=== PATIENT | female | born 1950 | race Caucasian/White ===

== ENCOUNTER → 2017-07-11 | Outpatient (REF) | payer OTHER, SELFPAY | LOC: LAB 17:55 | PROVIDERS: PCP Internal Medicine; Visit Provider Otolaryngology Facial Plastic Surgery | DX: J32.8 Other chronic sinusitis (principal); J30.89 Other allergic rhinitis; J34.0 Abscess, furuncle and carbuncle of nose | CPT/HCPCS: 87070 ==

== ENCOUNTER → 2017-09-16 08:42 | Outpatient (CLI) | payer MEDICARE, OTHER, SELFPAY ==
[2017-09-16 09:46] LABS: Alanine Aminotransferase 42 IU/L (9-52); Albumin 4.3 g/dL (3.5-5.0); Albumin Globulin Ratio 1.6 (1.0-2.8); Alkaline Phosphatase 97 U/L (38-126); Aspartate Aminotransferase 25 IU/L (14-36); Bilirubin Total 0.4 mg/dL (0.2-1.3); Bilirubin Unconjugated 0.1 mg/dL (0.0-1.1); Globulin 2.7 g/dL (1.7-4.1); HEMOLYSIS < 15 (0-50)
== END ==
PROVIDERS: PCP Internal Medicine; Visit Provider Nurse Practitioner Family
DX: R94.5 Abnormal results of liver function studies (principal)
CPT/HCPCS: 36415; 80076

== ENCOUNTER → 2017-11-12 07:51 | Outpatient (CLI) | payer MEDICARE, OTHER, SELFPAY ==
[2017-11-12 09:35] LABS: Alanine Aminotransferase 40 IU/L (9-52); Albumin 4.3 g/dL (3.5-5.0); Albumin Globulin Ratio 1.7 (1.0-2.8); Alkaline Phosphatase 101 U/L (38-126); Aspartate Aminotransferase 25 IU/L (14-36); Bilirubin Total 0.5 mg/dL (0.2-1.3); Bilirubin Unconjugated 0.2 mg/dL (0.0-1.1); Globulin 2.5 g/dL (1.7-4.1); HEMOLYSIS < 15 (0-50); Total Protein 6.8 g/dL (6.3-8.2)
== END ==
PROVIDERS: PCP Internal Medicine; Visit Provider Nurse Practitioner Family
DX: R94.5 Abnormal results of liver function studies (principal)
CPT/HCPCS: 36415; 80076

== ENCOUNTER 2017-11-18 20:17 | Emergency (ER) | payer MEDICARE, OTHER, SELFPAY ==
[2017-11-18 20:27] VITALS: BP 191/100; PULSE 94; RESP 18; TEMP 36.6; O2SAT 97; BMI 28.2
--- NOTE | 2017-11-18 20:28 | ED.GENADULT ---
HPI - General Adult General Chief complaint: Hypertension Stated complaint: Heart Palpatations Time Seen by Provider: 11/18/17 20:20 Source: patient and EMS Mode of arrival: EMS Limitations: no limitations History of Present Illness HPI narrative: Patient states she developed a headache and felt lightheaded about 30 min after taking her cardia. She states she was just started on this medication 4 days ago, after her doctor felt her beta-blockers should be discontinued. Patient states that she has felt shaky ever since his symptoms developed about an hours ago. She denies chest pain or nausea. Patient states that she is feeling a little bit short of breath. Her states that she has been feeling short of breath for the last 3 weeks, even with light exertion, which prompted the visit with her doctor. It was at this time that it was determined her medication should be changed. Patient also has a an echocardiogram scheduled in 2 days. Onset (ago): hour(s) ( One) Location: upper extremity ( upper extremities are shaking.) Radiation: non-radiation Severity: moderate Relieving factors: none Exacerbating factors: medication (Patient feels that her Cardia brought on the symptoms.) Associated symptoms: denies other symptoms Related Data Home Medications Medication Instructions Recorded Confirmed linaclotide [Linzess] 145 mcg PO QAM #0 12/30/16 pantoprazole [Protonix] 40 mg PO BID #0 12/30/16 esomeprazole magnesium [Nexium] 40 mg PO QDAY #0 01/09/17 Previous Rx's Medication Instructions Recorded enoxaparin [Lovenox] 40 mg SQ QDAY 9 Days #0 ea 01/10/17 Review of Systems Review of Systems All systems reviewed & are unremarkable except as noted in HPI and below Constitutional Denies chills, Denies fever(s), Denies lethargy and Denies weakness Comments: Lightheadedness Eyes Denies change in vision, Denies eye discharge, Denies irritation and Denies loss of vision ENT Ears, Nose, Mouth, and Throat: Denies change in voice, Denies neck pain and Denies sore throat Cardiovascular Denies chest pain, Denies irregular heart rhythm, Reports lightheadedness, Denies palpitations, Denies dyspnea, Denies dyspnea on exertion and Denies orthopnea Respiratory Denies cough, Denies dyspnea, Denies dyspnea on exertion and Denies wheezing Gastrointestinal Gastrointestinal: Denies abdominal pain, Denies change in bowel habits, Denies diarrhea, Denies nausea and Denies vomiting Genitourinary Denies hematuria, Denies flank pain, Denies urinary incontinence and Denies urinary urgency Musculoskeletal Denies neck pain Integumentary/Breasts Denies pruritus, Denies erythema, Denies rash and Denies wounds Neurologic Denies confusion, Denies loss of vision and Denies weakness Psychiatric Denies anxiety, Denies confusion, Denies depression, Denies homicidal ideation and Denies suicidal ideation Endocrine Denies palpitations Hematologic/Lymphatic Denies easy bruising Allergic/Immunologic Denies wheezing PFSH Medical History Adverse drug effect (Acute) Hypertension (Acute) Right leg swelling (Acute) Elevated LFTs (Acute) Surgical History S/P total hip arthroplasty (Acute) Social History Smoking Status: Never smoker Exam Initial Vital Signs Initial Vital Signs: Vital Signs Temperature 97.8 F 11/18/17 20:27 Pulse Rate 94 H 11/18/17 20:27 Respiratory Rate 18 11/18/17 20:27 Blood Pressure 191/100 H 11/18/17 20:27 Pulse Oximetry 97 11/18/17 20:27 Const General: cooperative and well developed Nutritional Appearance: well nourished Orientation: alert, awake, oriented x3 and not confused Other: Patient appears moderately anxious. HENOH Head: normocephalic and atraumatic Nose: external nose normal and No nasal discharge Face and sinus: face symmetric and No dry mucous membranes Mouth: oral mucosae normal and moist mucous membranes Eyes General: appearance normal, both eyes and all related structures Eyelids: eyelids normal Conjunctivae: conjunctivae normal Sclera: sclerae normal Pupils: PERRL EOM: EOM intact bilaterally Neck Neck: normal visual inspection, trachea midline, No lymphadenopathy, No midline deformity and No JVD Lymphatic: No lymphedema Chest Chest: normal inspection of the chest Resp Effort & Inspection: normal respiratory effort, able to speak in complete sentences, no respiratory distress and no use of accessory muscles Auscultation: clear to auscultation bilaterally, no rales, no rhonchi and no wheezes Cardio Rate: regular rate Rhythm: regular rhythm Heart Sounds: no click, no gallops, no murmurs and no rubs Pulses: normal peripheral pulses GI Inspection: non-distended Palpation: soft, no hepatosplenomegaly, No guarding, No pulsatile mass and No tender Auscultation: normal bowel sounds Back/Spine/Pelvis Back: No CVA tenderness Cervical Spine: cervical ROM normal and No pain with cervical ROM Thoracic/Lumbar Spine: thoracic and lumbar spine normal to inspection Skin General: no rashes or lesions noted, No jaundice and No petechiae Neuro General: alert, oriented x3, gait normal and no focal motor deficits Speech: speech normal Extrem General: full ROM, no clubbing, cyanosis or edema, no pedal edema and no calf tenderness Psych Appearance: well kempt Mental Status: mental status grossly normal Affect: anxious affect Attitude: cooperative Thought Content: normal and suicidality Judgment: judgment good Course Hospital Course: Patient was evaluated with labs and EKG, which were unremarkable. She was treated symptomatically with Ativan, after which she was found to be feeling much better I did discuss with the patient that she needs to see her primary care physician to discuss whether cardia is a good option for her, given the symptoms she has had when she takes it. Patient states she plans to see her primary care physician. 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 % (Auto) 5.9 (3-14) % Eos % (Auto) 4.5 H (2-4) % Baso % (Auto) 0.4 (0-2) % Neut # (Auto) 5200 (5810-5567) /uL Sodium 139 (137-145) mmol/L Potassium 3.6 (3.4-5.1) mmol/L Chloride 98 (98-107) mmol/L Carbon Dioxide 29 (22-32) mmol/L BUN 13 (7-17) mg/dL Creatinine 0.80 (0.52-1.04) mg/dL Estimated GFR > 60.0 (>60) mL/min BUN/Creatinine Ratio 16.3 (6-22) Glucose 108 (80-110) mg/dL Calcium 9.6 (8.4-10.2) mg/dL Total Bilirubin 0.3 (0.2-1.3) mg/dL AST 24 (14-36) IU/L ALT 32 (9-52) IU/L Alkaline Phosphatase 110 (38-126) U/L Total Creatine Kinase 70 (30-135) U/L Troponin I < 0.012 (0.01-0.034) ng/mL B-Natriuretic Peptide < 100.0 (<100) Total Protein 7.3 (6.3-8.2) g/dL Albumin 4.4 (3.5-5.0) g/dL Globulin 2.9 (1.7-4.1) g/dL Albumin/Globulin Ratio 1.5 (1.0-2.8) Discharge Plan Departure Patient Disposition: Home Clinical Impression: Adverse drug effect Discharge Date/Time: 11/18/17 21:57 Interventions: ED Discharge Assessment Last Done: 11/18/17 21:57 Instructions: DI for High Blood Pressure, DI for Adverse Drug Reaction -- Other Activity Restrictions/Additional Instructions: Your labs look good, as does your EKG. It is important that you see your doctor soon as possible to discuss a different blood pressure medication. Prescriptions: No Action pantoprazole [Protonix] 40 MG tablet,delayed release (DR/EC) 40 mg PO BID Qty: 0 RF: 0 linaclotide [Linzess] 145 MCG capsule 145 mcg PO QAM Qty: 0 RF: 0 esomeprazole magnesium [Nexium] 40 MG capsule,delayed release(DR/EC) 40 mg PO QDAY Qty: 0 RF: 0 enoxaparin [Lovenox] 40 MG/0.4 ML syringe 40 mg SQ QDAY 9 Days Qty: 0 RF: 0 Referrals: Marshall Jurado MD [Primary Care Provider] - ( Please call 1st thing tomorrow and schedule follow-up appointment.)
[2017-11-18 20:30] VITALS: BP 191/100; PULSE 78; RESP 19; O2SAT 100
--- NOTE | 2017-11-18 20:34 | DI.RAD.S_ITS ---
PROCEDURE: XR CHEST 1V INDICATIONS: dyspnea TECHNIQUE: One view of the chest was acquired. COMPARISON: [facility], , CHEST 1 VIEW, 08/29/2014, 13:47. FINDINGS: Surgical changes and devices: None. Lungs and pleura: No pleural effusions or pneumothorax. Lungs are clear. Mediastinum: Mediastinal contours appear normal. Heart size is normal. Bones and chest wall: No suspicious bony lesions. Overlying soft tissues appear unremarkable. IMPRESSION: No acute cardiopulmonary disease. Dictated by: Tisha August M.D. on 11/18/2017 at 21:29 Approved by: Tisha August M.D. on 11/18/2017 at 21:29
[2017-11-18 20:41] LABS: Add Manual Diff / Slide Review NO; Basophils Percent Auto 0.4 % (0-2); Eosinophils Percent Auto 4.5 % (2-4); Hematocrit 39.3 % (36-46); Lymphocytes Percent Auto 35.8 % (25-40); Mean Corpuscular Hemoglobin 29.4 PG (26-34); Monocytes Percent Auto 5.9 % (3-14); Neutrophils Absolute Auto 5200 /uL (3000-5900); Neutrophils Percent Auto 53.4 % (50-75); Platelet Count 348 X10^3/uL (150-400); Red Blood Cell Count 4.42 X10^6/uL (4.0-5.2); Red Cell Distribution Width 13.8 % (11.6-14.8); White Blood Cell Count 9.7 X10^3/uL (4.5-11.0)
[2017-11-18 20:47] VITALS: BP 191/100; PULSE 78; RESP 19; TEMP 36.6; O2SAT 100; BMI 28.2
[2017-11-18 20:56] LABS: Alanine Aminotransferase 32 IU/L (9-52); Albumin 4.4 g/dL (3.5-5.0); Albumin Globulin Ratio 1.5 (1.0-2.8); Alkaline Phosphatase 110 U/L (38-126); Aspartate Aminotransferase 24 IU/L (14-36); BUN Creatinine Ratio 16.3 (6-22); Bilirubin Total 0.3 mg/dL (0.2-1.3); Blood Urea Nitrogen 13 mg/dL (7-17); Calcium 9.6 mg/dL (8.4-10.2); Carbon Dioxide 29 mmol/L (22-32); Chloride 98 mmol/L (98-107); Creatine Kinase 70 U/L (30-135); Estimated Glomerular Filt Rate > 60.0 mL/min (>60); Globulin 2.9 g/dL (1.7-4.1); Glucose 108 mg/dL (80-110); HEMOLYSIS < 15 (0-50); Potassium 3.6 mmol/L (3.4-5.1); Sodium 139 mmol/L (137-145); Total Protein 7.3 g/dL (6.3-8.2)
[2017-11-18 21:07] LABS: B Type Natriuretic Peptide < 100.0 (<100)
[2017-11-18 21:08] LABS: Troponin I < 0.012 ng/mL (0.01-0.034)
[2017-11-18 21:20] VITALS: BP 150/66; PULSE 83; RESP 11; O2SAT 96
[2017-11-18] MEDS: LORazepam 2 MG/ML SYRINGE 1 MG IV (21:33)
== END 2017-11-18 21:57 | disposition home or self-care (01) ==
PROVIDERS: Emergency Provider Emergency Medicine; PCP Internal Medicine
DX: R00.2 Palpitations (principal); T46.1X5A Adverse effect of calcium-channel blockers, initial encounter
CPT/HCPCS: 36415; 71045; 80053; 82550; 82553; 83880; 84484; 85025; 93005; 93010; 96374; 99282; 99285; J2060

== ENCOUNTER → 2017-11-20 09:31 | Outpatient (CLI) | payer MEDICARE, OTHER, SELFPAY ==
--- NOTE | 2017-11-20 | DI.ECHO.S_ITS ---
[facility]---------+ [facility] +---------+ : : [address] : : : : [id number] : : : : Phone: [phone] Echocardiogram Report + + :Name: MIRNA COLEMAN Study Date: 11/20/2017 Height: 66 in : :[facility] Exam Location: IS Weight: 178 lb : : Gender: Female BSA: 1.9 m2 : :: 1950 Age: 67 yrs BP: 112/62 mmHg: :Reason For Study: Palpitations : :Ordering Physician: Dr. Olivares : :Adrien Performed By: Cami Muller : :Referring: POONAM FRY : + + Interpretation Summary Normal left ventricle size with ejection fraction 60-65%. Mildly dilated left atrium. Mild mitral regurgitation. Procedure: A two-dimensional transthoracic echocardiogram with color flow and Doppler was performed. The study quality was technically adequate. There is no prior echocardiogram noted for this patient. The patient was in normal sinus rhythm during the exam. Left Ventricle: There is normal left ventricular wall thickness. The left ventricle is normal in size. The ejection fraction is estimated to be 60-65%. There are no focal wall motion abnormalities. Assessment of diastolic parameters indicates normal left ventricular diastolic function and normal filling pressures. Right Ventricle: The right ventricle is normal in size and function. Atria: The left atrium is mildly dilated. Right atrial size is normal. The interatrial septum is intact with no evidence for an atrial septal defect. Mitral Valve: The mitral valve is normal in structure and function. There is mild mitral regurgitation. Aortic Valve: The aortic valve is trileaflet. Leaflet mobility is normal. No aortic regurgitation is present. Tricuspid Valve: The tricuspid valve is normal in structure and function. There is a trace or physiologic amount of tricuspid regurgitation. The right ventricular systolic pressure is estimated at 19 mmHg assuming a right atrial pressure of 3 mm Hg. Pulmonic Valve: The pulmonic valve is not well seen, but is grossly normal. There is trace pulmonic regurgitation. Great Vessels: The aortic root is normal size. The ascending aorta is normal in size. The IVC is of normal diameter and collapses greater than 50% with a sniff. This suggests a low right atrial pressure of 3 mm Hg. Pericardium/ Pleura There is no pericardial effusion. There is an anterior echo-free space consistent with a fat pad. There is no pleural effusion. MMode/2D Measurements & Calculations LVIDd: 5.7 cm LVOT diam: 1.9 cm LVIDs: 3.6 cm Ao root diam: 2.8 cm FS: 36.0 % asc Aorta Diam: 3.1 cm EPSS: 0.50 cm Ao Arch Diam (Prox Trans): 2.9 cm IVSd: 0.80 cm LVPWd: 0.76 cm LV starr. diameter/BSA (cm/m^2): 3.0 LV sys. diameter/BSA (cm/m^2): 1.9 LA A2 area: 18.8 cm2 RA long axis: 4.8 cm LA A4 area: 22.9 cm2 RA area: 15.2 cm2 LA length (vol): 5.4 cm RA vol: 41.1 ml LA vol: 67.7 ml RA : 21.6 ml/m2 LA vol index: 35.6 ml/m2 IVC diam: 1.6 cm TAPSE: 2.6 cm Doppler Measurements & Calculations Ao V2 max: 158.3 cm/sec LVOT Max Danial: 91.0 cm/sec Ao V2 mean: 96.8 cm/sec LV V1 max P.3 mmHg Ao max P.0 mmHg LV V1 VTI: 20.8 cm Ao mean P.3 mmHg MILAN(I,D): 1.9 cm2 Ao V2 VTI: 30.6 cm MILAN(V,D): 1.6 cm2 sev ratio: 0.68 MILAN indexed to BSA (cm^2/m^2): 0.98 MV E max danial: 68.3 cm/sec TR max danial: 198.9 cm/sec MV A max danial: 70.4 cm/sec TR max P.8 mmHg MV E/A: 0.97 PA V2 max: 61.3 cm/sec Med Peak E' Danial: 7.7 cm/sec PA V2 mean: 43.7 cm/sec E/E' med: 8.9 PA mean P.86 mmHg Lat Peak E' Danial: 9.9 cm/sec PA pr(Accel): -13.3 mmHg E/E' lat: 6.9 E/e' average: 7.9 MV dec time: 0.21 sec Electronically signed by: Damion Gilmore on Reading Physician:11/20/2017 11:19 AM
== END ==
PROVIDERS: PCP Internal Medicine; Visit Provider Internal Medicine
DX: I34.0 Nonrheumatic mitral (valve) insufficiency (principal); R00.2 Palpitations
CPT/HCPCS: 93306

== ENCOUNTER → 2018-01-09 10:25 | Outpatient (CLI) | payer MEDICARE, OTHER, SELFPAY ==
[2018-01-09 11:40] LABS: Blood Urea Nitrogen 9 mg/dL (7-17); Carbon Dioxide 32 mmol/L (22-32); Chloride 89 mmol/L (98-107); Estimated Glomerular Filt Rate > 60.0 mL/min (>60); Glucose 91 mg/dL (80-110); HEMOLYSIS < 15 (0-50); Sodium 131 mmol/L (137-145)
== END ==
PROVIDERS: PCP Internal Medicine; Visit Provider Internal Medicine
DX: I10 Essential (primary) hypertension (principal)
CPT/HCPCS: 36415; 80048

== ENCOUNTER → 2018-01-21 09:32 | Outpatient (CLI) | payer MEDICARE, OTHER, SELFPAY | PROVIDERS: PCP Internal Medicine; Visit Provider Internal Medicine | DX: M85.852 Other specified disorders of bone density and structure, left thigh (principal); Z78.0 Asymptomatic menopausal state; Z87.891 Personal history of nicotine dependence | CPT/HCPCS: 77080 ==

== ENCOUNTER → 2018-02-25 10:20 | Outpatient (CLI) | payer MEDICARE, OTHER, SELFPAY ==
--- NOTE | 2018-02-25 | DI.MG.S_ITS ---
BILATERAL DIGITAL SCREENING MAMMOGRAM 3D/2D WITH CAD: 02/25/2018 CLINICAL: Routine screening. Baseline exam. No prior exams were available for comparison. There are scattered fibroglandular elements in both breasts. Current study was also evaluated with a Computer Aided Detection (CAD) system. No significant masses, calcifications, or other findings are seen in either breast. IMPRESSION: NEGATIVE There is no mammographic evidence of malignancy. A 1 year screening mammogram is recommended. This exam was interpreted at Station ID: [id number]. NOTE: For mammograms, a report in lay terms will be sent to the patient. Approximately 15% of breast malignancies will not be visualized mammographically. In the management of a palpable breast mass, a negative mammogram must not discourage biopsy of a clinically suspicious lesion. Electronically Signed By: Hermilo delvalle/lloyd:02/25/2018 16:59:14 letter sent: Normal Exam ACR BI-RADS Category 1: Negative [id number]
== END ==
PROVIDERS: PCP Internal Medicine; Visit Provider Internal Medicine
DX: Z12.31 Encounter for screening mammogram for malignant neoplasm of breast (principal)
CPT/HCPCS: 77063; 77067

== ENCOUNTER → 2018-04-10 13:33 | Outpatient (REF) | payer MEDICARE, OTHER, SELFPAY | LOC: LAB 13:33 | PROVIDERS: PCP Internal Medicine; Visit Provider Otolaryngology Facial Plastic Surgery | DX: J32.8 Other chronic sinusitis (principal); J34.0 Abscess, furuncle and carbuncle of nose; J34.89 Other specified disorders of nose and nasal sinuses | CPT/HCPCS: 87070; 87107 ==

== ENCOUNTER 2018-05-18 11:41 | Observation (INO) | payer MEDICARE, OTHER, SELFPAY ==
[2018-05-18] VITALS (16 sets, daily range): BP systolic 109–172; BP diastolic 62–124; PULSE 62–153; RESP 13–22; TEMP 36.4–36.8; O2SAT 97–100; BMI 27.4
--- NOTE | 2018-05-18 12:00 | DI.RAD.S_ITS ---
PROCEDURE: XR CHEST 1V INDICATIONS: chest pain TECHNIQUE: One view of the chest was acquired. COMPARISON: [facility], , XR CHEST 1V, 11/18/2017, 20:38. [facility], , CHEST 1 VIEW, 08/29/2014, 13:47. FINDINGS: Surgical changes and devices: None. Lungs and pleura: Lungs are clear. No pleural effusions or pneumothorax. Mediastinum: Mediastinal contours appear normal. Heart size is normal. Bones and chest wall: No suspicious bony lesions. Overlying soft tissues appear unremarkable. IMPRESSION: Normal for age, source of current chest pain symptoms is not seen. Dictated by: Mitul Pacheco M.D. on 05/18/2018 at 12:44 Approved by: Mitul Pacheco M.D. on 05/18/2018 at 12:44
--- NOTE | 2018-05-18 12:08 | ED.CHESTPAIN ---
HPI - Chest Pain General Chief Complaint: Chest Pain Stated Complaint: heart issues,shakes,sweating,sob Time Seen by Provider: 05/18/18 12:03 Source: patient Mode of arrival: ambulatory Limitations: no limitations History of Present Illness HPI narrative: The patient developed palpitations about 90 minutes ago, while at rest at home. She has a prior history of palpitations, no defined history of arrhythmia. She has associated chest discomfort with dyspnea. She has no history of CAD/[place]. She has no history of syncope. She does have slight abdominal discomfort with the symptoms also. She takes atenolol 50 milligrams daily due to the history of palpitations and hypertension. She is on other medications. She has a history of a thyroid lobectomy, but does not require thyroid replacement. She is a nonsmoker, no diabetes, no hyperlipidemia. She has previously been on Cardizem for palpitations. She has had multiple severe reactions to the Cardizem, primarily tachycardia. Related Data Home Medications Medication Instructions Recorded Confirmed esomeprazole magnesium [Nexium] 40 mg PO BID #0 01/09/17 05/18/18 Calcium 1 tab PO DAILY 05/18/18 05/18/18 Vitamin D3 1 tab PO DAILY 05/18/18 05/18/18 atenolol 50 mg PO QPM 05/18/18 05/18/18 Review of Systems Review of Systems ROS Unobtainable: All systems reviewed & are unremarkable except as noted in HPI and below Constitutional Denies chills, Denies fever(s), Denies lethargy, Denies weakness and Reports other (No recent illness) Eyes Reports other (No complaints) ENT Ears, Nose, Mouth, and Throat: Denies change in voice, Denies neck pain and Denies sore throat Cardiovascular Reports chest pain, Reports rapid heart rate, Reports palpitations and Reports dyspnea Respiratory Reports dyspnea Gastrointestinal Gastrointestinal: Denies abdominal pain, Denies change in bowel habits, Denies diarrhea, Denies nausea and Denies vomiting Musculoskeletal Denies back pain and Denies neck pain Integumentary/Breasts Denies rash Neurologic Denies confusion and Denies weakness Psychiatric Denies confusion Endocrine Reports palpitations [facility] Medical History Hypertension (Acute) Right leg swelling (Acute) Elevated LFTs (Acute) Adverse drug effect (Inactive) Surgical History S/P total hip arthroplasty (Acute) Social History Smoking Status: Never smoker Social History Smoking Status: Never smoker Exam Initial Vital Signs Initial Vital Signs: Vital Signs Pulse Rate 145 H 05/18/18 12:00 Respiratory Rate 22 05/18/18 12:00 Blood Pressure 161/92 H 05/18/18 12:00 Pulse Oximetry 100 05/18/18 12:00 See RN notes. Const General: cooperative and well developed Nutritional Appearance: well nourished Orientation: alert, awake, oriented x3 and not confused HENMT Head: normocephalic and atraumatic Nose: external nose normal Face and sinus: face symmetric Mouth: oral mucosae normal and moist mucous membranes Throat: tonsils normal and uvula midline Eyes General: appearance normal, both eyes and all related structures Eyelids: eyelids normal Conjunctivae: conjunctivae normal Sclera: sclerae normal Pupils: PERRL EOM: EOM intact bilaterally Neck Neck: normal visual inspection, trachea midline, No lymphadenopathy and No JVD Thyroid: thyroid normal Lymphatic: No lymphadenopathy Chest Chest: normal inspection of the chest Resp Effort & Inspection: normal respiratory effort, able to speak in complete sentences, no respiratory distress and no use of accessory muscles Auscultation: clear to auscultation bilaterally, no rales, no rhonchi and no wheezes Cardio Rhythm: abnormal rhythm irregularly irregular Heart Sounds: S1 normal, S2 normal, no click, no gallops, no murmurs and no rubs Pulses: normal peripheral pulses GI Inspection: non-distended Palpation: soft, no hepatosplenomegaly, No guarding, No pulsatile mass and No tender Auscultation: normal bowel sounds Back/Spine/Pelvis Thoracic/Lumbar Spine: thoracic and lumbar spine normal to inspection Skin General: no rashes or lesions noted and No petechiae Neuro General: alert, oriented x3, gait normal and no focal motor deficits Speech: speech normal Extrem General: full ROM, no clubbing, cyanosis or edema, no pedal edema and no calf tenderness Psych Appearance: well kempt Mental Status: mental status grossly normal Attitude: cooperative Thought Content: normal and suicidality Judgment: judgment good Course Course Narrative: The patient was given IV Lopressor 5 milligrams x3 doses. She remained tachycardic. She cannot tolerate Cardizem. IV digoxin was utilized. Her heart rate has improved. Her rate at the time of admission is 92. Her case was discussed with the hospitalist, Dr. Munson. The patient be admitted to telemetry. Orders Ordered: ED Orders 05/18/18 12:00 XR chest 1V Stat EKG-12 Lead Stat 05/18/18 12:16 Complete Blood Count AUTO DIFF Stat Comprehensive Metabolic Panel Stat Lipase Stat Partial Thromboplastin Time Stat Prothrombin Time INR Stat Thyroid Stimulating Hormone Stat Troponin & CK Cardiac Panel Stat Discontinued Medications Aspirin (Aspirin Chew) 324 mg PO NOW ONE Stop: 05/18/18 12:09 Last Admin: 05/18/18 12:20 Dose: 324 mg Digoxin (Lanoxin) 500 mcg IV NOW ONE Stop: 05/18/18 12:41 Last Admin: 05/18/18 12:46 Dose: 500 mcg Metoprolol Tartrate (Lopressor) 5 mg IV Q5M [facility] Stop: 05/18/18 12:26 Last Admin: 05/18/18 12:31 Dose: 5 mg Admin: 05/18/18 12:25 Dose: 5 mg Admin: 05/18/18 12:20 Dose: 5 mg Vital Signs - 8 hr 05/18/18 12:00 05/18/18 12:20 05/18/18 12:25 Pulse Rate 145 H 123 H 117 H Respiratory Rate 22 21 19 Blood Pressure Blood Pressure [Right Arm] 161/92 H 167/101 H 170/103 H Pulse Oximetry 100 100 100 05/18/18 12:30 05/18/18 12:40 05/18/18 12:41 Pulse Rate 113 H 109 H 153 H Respiratory Rate 18 17 17 Blood Pressure 161/92 H Blood Pressure [Right Arm] 145/124 H 158/86 H Pulse Oximetry 100 100 100 05/18/18 12:46 05/18/18 13:00 05/18/18 13:30 Pulse Rate 124 H 96 H 97 H Respiratory Rate 18 18 Blood Pressure 158/86 H Blood Pressure [Right Arm] 166/97 H 147/86 H Pulse Oximetry 98 97 MDM - Chest Pain Lab Data Result diagrams: 05/18/18 12:16 03/04/19 12:16 Lab Results 05/18/18 05/18/18 05/18/18 Range/Units 12:16 12:16 12:16 WBC 10.0 (4.5-11.0) X10^3/uL RBC 5.04 (4.0-5.2) X10^6/uL Hgb 15.0 (12.0-16.0) g/dL Hct 45.5 (36-46) % MCV 90.2 (80-100) fL MCH 29.8 (26-34) PG MCHC 33.0 (30-36) % RDW 13.6 (11.6-14.8) % Plt Count 411 H (150-400) X10^3/uL Neut % (Auto) 53.6 (50-75) % Lymph % (Auto) 36.7 (25-40) % Day % (Auto) 5.5 (3-14) % Eos % (Auto) 2.9 (2-4) % Baso % (Auto) 1.3 (0-2) % Neut # (Auto) 5300 (4929-2674) /uL Lymph # (Auto) 3700 (8925-3056) /uL Day # (Auto) 600 (0-900) /uL Eos # (Auto) 300 (0-450) /uL Baso # (Auto) 100 (0-100) /uL PT 11.3 (10.1-12.7) SECONDS INR 1.0 (0.9-1.3) APTT 34 (26.4-36.2) SECONDS Sodium 137 (137-145) mmol/L Potassium 3.7 (3.4-5.1) mmol/L Chloride 97 L (98-107) mmol/L Carbon Dioxide 26 (22-32) mmol/L BUN 13 (7-17) mg/dL Creatinine 0.60 (0.52-1.04) mg/dL Estimated GFR > 60.0 (>60) mL/min BUN/Creatinine Ratio 21.7 (6-22) Glucose 106 (80-110) mg/dL Calcium 10.1 (8.4-10.2) mg/dL Total Bilirubin 0.4 (0.2-1.3) mg/dL AST 31 (14-36) IU/L ALT 53 H (9-52) IU/L Alkaline Phosphatase 118 (38-126) U/L Total Creatine Kinase 51 (30-135) U/L CK-MB (CK-2) TNP CK-MB (CK-2) Rel Index TNP Troponin I < 0.012 (0.01-0.034) ng/mL Total Protein 8.9 H (6.3-8.2) g/dL Albumin 5.2 H (3.5-5.0) g/dL Globulin 3.7 (1.7-4.1) g/dL Albumin/Globulin Ratio 1.4 (1.0-2.8) Lipase 94 (23-300) U/L TSH (0.47-4.68) uIU/mL 05/18/18 Range/Units 12:16 WBC (4.5-11.0) X10^3/uL RBC (4.0-5.2) X10^6/uL Hgb (12.0-16.0) g/dL Hct (36-46) % MCV (80-100) fL MCH (26-34) PG MCHC (30-36) % RDW (11.6-14.8) % Plt Count (150-400) X10^3/uL Neut % (Auto) (50-75) % Lymph % (Auto) (25-40) % Day % (Auto) (3-14) % Eos % (Auto) (2-4) % Baso % (Auto) (0-2) % Neut # (Auto) (5863-5804) /uL Lymph # (Auto) (3951-4926) /uL Day # (Auto) (0-900) /uL Eos # (Auto) (0-450) /uL Baso # (Auto) (0-100) /uL PT (10.1-12.7) SECONDS INR (0.9-1.3) APTT (26.4-36.2) SECONDS Sodium (137-145) mmol/L Potassium (3.4-5.1) mmol/L Chloride (98-107) mmol/L Carbon Dioxide (22-32) mmol/L BUN (7-17) mg/dL Creatinine (0.52-1.04) mg/dL Estimated GFR (>60) mL/min BUN/Creatinine Ratio (6-22) Glucose (80-110) mg/dL Calcium (8.4-10.2) mg/dL Total Bilirubin (0.2-1.3) mg/dL AST (14-36) IU/L ALT (9-52) IU/L Alkaline Phosphatase (38-126) U/L Total Creatine Kinase (30-135) U/L CK-MB (CK-2) CK-MB (CK-2) Rel Index Troponin I (0.01-0.034) ng/mL Total Protein (6.3-8.2) g/dL Albumin (3.5-5.0) g/dL Globulin (1.7-4.1) g/dL Albumin/Globulin Ratio (1.0-2.8) Lipase (23-300) U/L TSH 2.22 (0.47-4.68) uIU/mL Imaging Data Chest x-ray: Radiologist's impression: [address] [address] XRay Report Signed Patient: DarleneAugust [facility]#: [id number] : 3Acct:[id number] Age/Sex: 67 / FDate of Service: 05/18/18 Loc: ED Accession Number: [id number] Procedure: XR chest 1V Ordering Provider: Johnnie Coles M.D. PROCEDURE: XR CHEST 1V INDICATIONS: chest pain TECHNIQUE: One view of the chest was acquired. COMPARISON: [facility], XR CHEST 1V, 11/18/2017, 20:38. [facility], CHEST 1 VIEW, 08/29/2014, 13:47. FINDINGS: Surgical changes and devices: None. Lungs and pleura: Lungs are clear. No pleural effusions or pneumothorax. Mediastinum: Mediastinal contours appear normal. Heart size is normal. Bones and chest wall: No suspicious bony lesions. Overlying soft tissues appear unremarkable. IMPRESSION: Normal for age, source of current chest pain symptoms is not seen. Dictated by: Mitul Pacheco M.D. on 05/18/2018 at 12:44 Approved by: Mitul Pacheco M.D. on 05/18/2018 at 12:44 ECG Data Attestation: I personally reviewed and interpreted this ECG as follows: (AFib with RVR, rate [address] depression. No acute ST elevations.) Discharge Plan Departure Patient Disposition: Admitted as Observation Clinical Impression: Atrial fibrillation with RVR Referrals: Marshall Jurado MD [Primary Care Provider] - Admit Date/Time: 05/18/18 14:08 Admit Provider: Dontrell Munson
--- NOTE | 2018-05-18 12:12 | ED_ITS ---
HPI - Chest Pain General Chief Complaint: Chest Pain Stated Complaint: heart issues,shakes,sweating,sob Time Seen by Provider: 05/18/18 12:03 Source: patient Mode of arrival: ambulatory Limitations: no limitations History of Present Illness HPI narrative: The patient developed palpitations about 90 minutes ago, while at rest at home. She has a prior history of palpitations, no defined history of arrhythmia. She has associated chest discomfort with dyspnea. She has no history of CAD/[place]. She has no history of syncope. She does have slight abdominal discomfort with the symptoms also. She takes atenolol 50 milligrams daily due to the history of palpitations and hypertension. She is on other medications. She has a history of a thyroid lobectomy, but does not require thyroid replacement. She is a nonsmoker, no diabetes, no hyperlipidemia. She has previously been on Cardizem for palpitations. She has had multiple severe reactions to the Cardizem, primarily tachycardia. Related Data Home Medications Medication Instructions Recorded Confirmed esomeprazole magnesium [Nexium] 40 mg PO BID #0 01/09/17 05/18/18 Calcium 1 tab PO DAILY 05/18/18 05/18/18 Vitamin D3 1 tab PO DAILY 05/18/18 05/18/18 atenolol 50 mg PO QPM 05/18/18 05/18/18 Review of Systems Review of Systems ROS Unobtainable: All systems reviewed & are unremarkable except as noted in HPI and below Constitutional Denies chills, Denies fever(s), Denies lethargy, Denies weakness and Reports other (No recent illness) Eyes Reports other (No complaints) ENT Ears, Nose, Mouth, and Throat: Denies change in voice, Denies neck pain and Denies sore throat Cardiovascular Reports chest pain, Reports rapid heart rate, Reports palpitations and Reports dyspnea Respiratory Reports dyspnea Gastrointestinal Gastrointestinal: Denies abdominal pain, Denies change in bowel habits, Denies diarrhea, Denies nausea and Denies vomiting Musculoskeletal Denies back pain and Denies neck pain Integumentary/Breasts Denies rash Neurologic Denies confusion and Denies weakness Psychiatric Denies confusion Endocrine Reports palpitations [facility] Medical History Hypertension (Acute) Right leg swelling (Acute) Elevated LFTs (Acute) Adverse drug effect (Inactive) Surgical History S/P total hip arthroplasty (Acute) Social History Smoking Status: Never smoker Social History Smoking Status: Never smoker Exam Initial Vital Signs Initial Vital Signs: Vital Signs Pulse Rate 145 H 05/18/18 12:00 Respiratory Rate 22 05/18/18 12:00 Blood Pressure 161/92 H 05/18/18 12:00 Pulse Oximetry 100 05/18/18 12:00 See RN notes. Const General: cooperative and well developed Nutritional Appearance: well nourished Orientation: alert, awake, oriented x3 and not confused HENMT Head: normocephalic and atraumatic Nose: external nose normal Face and sinus: face symmetric Mouth: oral mucosae normal and moist mucous membranes Throat: tonsils normal and uvula midline Eyes General: appearance normal, both eyes and all related structures Eyelids: eyelids normal Conjunctivae: conjunctivae normal Sclera: sclerae normal Pupils: PERRL EOM: EOM intact bilaterally Neck Neck: normal visual inspection, trachea midline, No lymphadenopathy and No JVD Thyroid: thyroid normal Lymphatic: No lymphadenopathy Chest Chest: normal inspection of the chest Resp Effort & Inspection: normal respiratory effort, able to speak in complete sentences, no respiratory distress and no use of accessory muscles Auscultation: clear to auscultation bilaterally, no rales, no rhonchi and no wheezes Cardio Rhythm: abnormal rhythm irregularly irregular Heart Sounds: S1 normal, S2 normal, no click, no gallops, no murmurs and no rubs Pulses: normal peripheral pulses GI Inspection: non-distended Palpation: soft, no hepatosplenomegaly, No guarding, No pulsatile mass and No tender Auscultation: normal bowel sounds Back/Spine/Pelvis Thoracic/Lumbar Spine: thoracic and lumbar spine normal to inspection Skin General: no rashes or lesions noted and No petechiae Neuro General: alert, oriented x3, gait normal and no focal motor deficits Speech: speech normal Extrem General: full ROM, no clubbing, cyanosis or edema, no pedal edema and no calf tenderness Psych Appearance: well kempt Mental Status: mental status grossly normal Attitude: cooperative Thought Content: normal and suicidality Judgment: judgment good Course Course Narrative: The patient was given IV Lopressor 5 milligrams x3 doses. She remained tachycardic. She cannot tolerate Cardizem. IV digoxin was utilized. Her heart rate has improved. Her rate at the time of admission is 92. Her case was discussed with the hospitalist, Dr. Munson. The patient be admitted to telemetry. Orders Ordered: ED Orders 05/18/18 12:00 XR chest 1V Stat EKG-12 Lead Stat 05/18/18 12:16 Complete Blood Count AUTO DIFF Stat Comprehensive Metabolic Panel Stat Lipase Stat Partial Thromboplastin Time Stat Prothrombin Time INR Stat Thyroid Stimulating Hormone Stat Troponin & CK Cardiac Panel Stat Discontinued Medications Aspirin (Aspirin Chew) 324 mg PO NOW ONE Stop: 05/18/18 12:09 Last Admin: 05/18/18 12:20 Dose: 324 mg Digoxin (Lanoxin) 500 mcg IV NOW ONE Stop: 05/18/18 12:41 Last Admin: 05/18/18 12:46 Dose: 500 mcg Metoprolol Tartrate (Lopressor) 5 mg IV Q5M [facility] Stop: 05/18/18 12:26 Last Admin: 05/18/18 12:31 Dose: 5 mg Admin: 05/18/18 12:25 Dose: 5 mg Admin: 05/18/18 12:20 Dose: 5 mg Vital Signs - 8 hr 05/18/18 12:00 05/18/18 12:20 05/18/18 12:25 Pulse Rate 145 H 123 H 117 H Respiratory Rate 22 21 19 Blood Pressure Blood Pressure [Right Arm] 161/92 H 167/101 H 170/103 H Pulse Oximetry 100 100 100 05/18/18 12:30 05/18/18 12:40 05/18/18 12:41 Pulse Rate 113 H 109 H 153 H Respiratory Rate 18 17 17 Blood Pressure 161/92 H Blood Pressure [Right Arm] 145/124 H 158/86 H Pulse Oximetry 100 100 100 05/18/18 12:46 05/18/18 13:00 05/18/18 13:30 Pulse Rate 124 H 96 H 97 H Respiratory Rate 18 18 Blood Pressure 158/86 H Blood Pressure [Right Arm] 166/97 H 147/86 H Pulse Oximetry 98 97 MDM - Chest Pain Lab Data Result diagrams: 05/18/18 12:16 03/04/19 12:16 Lab Results 05/18/18 05/18/18 05/18/18 Range/Units 12:16 12:16 12:16 WBC 10.0 (4.5-11.0) X10^3/uL RBC 5.04 (4.0-5.2) X10^6/uL Hgb 15.0 (12.0-16.0) g/dL Hct 45.5 (36-46) % MCV 90.2 (80-100) fL MCH 29.8 (26-34) PG MCHC 33.0 (30-36) % RDW 13.6 (11.6-14.8) % Plt Count 411 H (150-400) X10^3/uL Neut % (Auto) 53.6 (50-75) % Lymph % (Auto) 36.7 (25-40) % Lee % (Auto) 5.5 (3-14) % Eos % (Auto) 2.9 (2-4) % Baso % (Auto) 1.3 (0-2) % Neut # (Auto) 5300 (5140-3739) /uL Lymph # (Auto) 3700 (5310-7417) /uL Lee # (Auto) 600 (0-900) /uL Eos # (Auto) 300 (0-450) /uL Baso # (Auto) 100 (0-100) /uL PT 11.3 (10.1-12.7) SECONDS INR 1.0 (0.9-1.3) APTT 34 (26.4-36.2) SECONDS Sodium 137 (137-145) mmol/L Potassium 3.7 (3.4-5.1) mmol/L Chloride 97 L (98-107) mmol/L Carbon Dioxide 26 (22-32) mmol/L BUN 13 (7-17) mg/dL Creatinine 0.60 (0.52-1.04) mg/dL Estimated GFR > 60.0 (>60) mL/min BUN/Creatinine Ratio 21.7 (6-22) Glucose 106 (80-110) mg/dL Calcium 10.1 (8.4-10.2) mg/dL Total Bilirubin 0.4 (0.2-1.3) mg/dL AST 31 (14-36) IU/L ALT 53 H (9-52) IU/L Alkaline Phosphatase 118 (38-126) U/L Total Creatine Kinase 51 (30-135) U/L CK-MB (CK-2) TNP CK-MB (CK-2) Rel Index TNP Troponin I < 0.012 (0.01-0.034) ng/mL Total Protein 8.9 H (6.3-8.2) g/dL Albumin 5.2 H (3.5-5.0) g/dL Globulin 3.7 (1.7-4.1) g/dL Albumin/Globulin Ratio 1.4 (1.0-2.8) Lipase 94 (23-300) U/L TSH (0.47-4.68) uIU/mL 05/18/18 Range/Units 12:16 WBC (4.5-11.0) X10^3/uL RBC (4.0-5.2) X10^6/uL Hgb (12.0-16.0) g/dL Hct (36-46) % MCV (80-100) fL MCH (26-34) PG MCHC (30-36) % RDW (11.6-14.8) % Plt Count (150-400) X10^3/uL Neut % (Auto) (50-75) % Lymph % (Auto) (25-40) % Lee % (Auto) (3-14) % Eos % (Auto) (2-4) % Baso % (Auto) (0-2) % Neut # (Auto) (7903-3531) /uL Lymph # (Auto) (3479-0017) /uL Lee # (Auto) (0-900) /uL Eos # (Auto) (0-450) /uL Baso # (Auto) (0-100) /uL PT (10.1-12.7) SECONDS INR (0.9-1.3) APTT (26.4-36.2) SECONDS Sodium (137-145) mmol/L Potassium (3.4-5.1) mmol/L Chloride (98-107) mmol/L Carbon Dioxide (22-32) mmol/L BUN (7-17) mg/dL Creatinine (0.52-1.04) mg/dL Estimated GFR (>60) mL/min BUN/Creatinine Ratio (6-22) Glucose (80-110) mg/dL Calcium (8.4-10.2) mg/dL Total Bilirubin (0.2-1.3) mg/dL AST (14-36) IU/L ALT (9-52) IU/L Alkaline Phosphatase (38-126) U/L Total Creatine Kinase (30-135) U/L CK-MB (CK-2) CK-MB (CK-2) Rel Index Troponin I (0.01-0.034) ng/mL Total Protein (6.3-8.2) g/dL Albumin (3.5-5.0) g/dL Globulin (1.7-4.1) g/dL Albumin/Globulin Ratio (1.0-2.8) Lipase (23-300) U/L TSH 2.22 (0.47-4.68) uIU/mL Imaging Data Chest x-ray: Radiologist's impression: [address] [address] XRay Report Signed Patient: DarleneAugust [facility]#: [id number] : 3Acct:[id number] Age/Sex: 67 / FDate of Service: 05/18/18 Loc: ED Accession Number: [id number] Procedure: XR chest 1V Ordering Provider: Johnnie Coles M.D. PROCEDURE: XR CHEST 1V INDICATIONS: chest pain TECHNIQUE: One view of the chest was acquired. COMPARISON: [facility], XR CHEST 1V, 11/18/2017, 20:38. [facility], CHEST 1 VIEW, 08/29/2014, 13:47. FINDINGS: Surgical changes and devices: None. Lungs and pleura: Lungs are clear. No pleural effusions or pneumothorax. Mediastinum: Mediastinal contours appear normal. Heart size is normal. Bones and chest wall: No suspicious bony lesions. Overlying soft tissues appear unremarkable. IMPRESSION: Normal for age, source of current chest pain symptoms is not seen. Dictated by: Mitul Pacheco M.D. on 05/18/2018 at 12:44 Approved by: Mitul Pacheco M.D. on 05/18/2018 at 12:44 ECG Data Attestation: I personally reviewed and interpreted this ECG as follows: (AFib with RVR, rate [address] depression. No acute ST elevations.) Discharge Plan Departure Patient Disposition: Admitted as Observation Clinical Impression: Atrial fibrillation with RVR Referrals: Marshall Jurado MD [Primary Care Provider] - Admit Date/Time: 05/18/18 14:08 Admit Provider: Dontrell Munson
[2018-05-18] MEDS: ASPIRIN 81 MG TAB 324 MG PO (12:20)
[2018-05-18] MEDS: METOPROLOL TARTRATE 5 MG/5 ML INJ IV ×3 (12:20→12:31)
[2018-05-18 12:24] LABS: Hematocrit 45.5 % (36-46); Mean Corpuscular Hemoglobin 29.8 PG (26-34); Mean Corpuscular Volume 90.2 fL (80-100); Platelet Count 411 X10^3/uL (150-400); Red Blood Cell Count 5.04 X10^6/uL (4.0-5.2); Red Cell Distribution Width 13.6 % (11.6-14.8)
[2018-05-18 12:31] LABS: Prothrombin Time 11.3 SECONDS (10.1-12.7)
[2018-05-18 12:34] LABS: PTT Partial Thromboplastin Tim 34 SECONDS (26.4-36.2)
[2018-05-18 12:37] LABS: Alanine Aminotransferase 53 IU/L (9-52); Albumin 5.2 g/dL (3.5-5.0); Albumin Globulin Ratio 1.4 (1.0-2.8); Alkaline Phosphatase 118 U/L (38-126); Aspartate Aminotransferase 31 IU/L (14-36); BUN Creatinine Ratio 21.7 (6-22); Bilirubin Total 0.4 mg/dL (0.2-1.3); Blood Urea Nitrogen 13 mg/dL (7-17); Calcium 10.1 mg/dL (8.4-10.2); Carbon Dioxide 26 mmol/L (22-32); Chloride 97 mmol/L (98-107); Creatine Kinase 51 U/L (30-135); Estimated Glomerular Filt Rate > 60.0 mL/min (>60); Globulin 3.7 g/dL (1.7-4.1); Glucose 106 mg/dL (80-110); HEMOLYSIS 31 (0-50); Lipase 94 U/L (23-300); Potassium 3.7 mmol/L (3.4-5.1); Sodium 137 mmol/L (137-145); Total Protein 8.9 g/dL (6.3-8.2)
[2018-05-18] MEDS: DIGOXIN 500 MCG/2 ML AMPUL IV (12:46)
[2018-05-18 12:47] LABS: Troponin I < 0.012 ng/mL (0.01-0.034)
[2018-05-18 13:31] LABS: Thyroid Stimulating Hormone 2.22 uIU/mL (0.47-4.68)
[2018-05-18 14:27] LABS: Neutrophils Absolute Manual 4400 /uL (3000-5900); RBC Morphology Normal Morphology; Total Cells Counted 100
--- NOTE | 2018-05-18 14:31 | PM.HP.1 ---
History of Present Illness Date Patient Seen: 05/18/18 Chief complaint: heart issues,shakes,sweating,sob Narrative: Patient is a 67-year-old female with history of mitral valve prolapse, hypertension presented to emergency department with complaints of shortness of breath and palpitations. Past few days she felt short of breath with exertion. Around 11:00 a.m. today she began to have shortness of breath at rest and more palpitations. Denies chest pain. She was noted to be in AFib with ventricular rate 130 to 150s on initial evaluation. She denies previous history of atrial fibrillation. A few months ago she had episode acute tachycardia and dyspnea which was evaluated by paramedics but no diagnosis made of atrial fibrillation. She received 3 doses 5 mg IV metoprolol and dose of digoxin 0.25 mg IV in the ER with improvement of ventricular rate. She reports history of adverse reaction to Cardizem which was given to her for high blood pressure. She states she was taken off of atenolol and started on Cardizem and within a few days her blood pressure and heart rate both spiked up and she was told not to take Cardizem again. Currently she is on atenolol 50 mg daily for BP control. Patient did have outpatient transthoracic echo on 11/20/2017 which showed LV EF 60-65%, mildly dilated LA, mild MR. Family history negative for atrial fibrillation or [place]. Patient History Medical History Hypertension (Acute) Right leg swelling (Acute) Elevated LFTs (Acute) Adverse drug effect (Inactive) Surgical History S/P total hip arthroplasty (Acute) Social History Smoking Status: Never smoker Family & Social History Safety & Behavioral: Feels Safe in Current Yes Environment Been Physically Hurt or No Threatened By a Person Tobacco & Substance use: Smoking Status Never smoker alcohol intake frequency 0-2 drinks per day Substance Use Type does not use Meds Home Medications Medication Instructions Recorded Confirmed Type esomeprazole magnesium [Nexium] 40 mg PO BID #0 01/09/17 05/18/18 History Calcium 1 tab PO DAILY 05/18/18 05/18/18 History Vitamin D3 1 tab PO DAILY 05/18/18 05/18/18 History atenolol 50 mg PO QPM 05/18/18 05/18/18 History Review of Systems Review of Systems All systems reviewed & are unremarkable except as noted in HPI and below Exam Vital Signs (past 8 hours): - 05/18/18 12:00 05/18/18 12:20 05/18/18 12:25 Pulse Rate 145 H 123 H 117 H Respiratory Rate 22 21 19 Blood Pressure Blood Pressure [Right Arm] 161/92 H 167/101 H 170/103 H Pulse Oximetry 100 100 100 05/18/18 12:30 05/18/18 12:40 05/18/18 12:41 Pulse Rate 113 H 109 H 153 H Respiratory Rate 18 17 17 Blood Pressure 161/92 H Blood Pressure [Right Arm] 145/124 H 158/86 H Pulse Oximetry 100 100 100 05/18/18 12:46 05/18/18 13:00 05/18/18 13:30 Pulse Rate 124 H 96 H 97 H Respiratory Rate 18 18 Blood Pressure 158/86 H Blood Pressure [Right Arm] 166/97 H 147/86 H Pulse Oximetry 98 97 Oxygen Delivery Method Room Air Oxygen Flow Rate 0 Narrative Exam Narrative: GENERAL: Alert pleasant female no acute distress after interventions in the ER HEAD: Atraumatic. Normocephalic. EYES: Pupils equal, round and reactive. Extraocular motions intact. No scleral icterus. No injection or drainage. OROPHARYNX: moist mucosa NECK: Trachea midline. No JVD or lymphadenopathy. CARDIOVASCULAR: Normal S1 and S2, irregularly regular rhythm, no murmurs gallops or rubs. RESPIRATORY: Clear to auscultation bilaterally. GASTROINTESTINAL: Abdomen nondistended, soft, non-tender. No hepato-splenomegaly, or palpable masses. EXTREMITIES: No edema. NEUROLOGICAL: Alert, well oriented, speech is intact, normal bilateral upper and lower extremity strength SKIN: warm, dry, no rash Objective ECG Impression: Atrial fibrillation with RVR, minimal ST depression Imaging Chest x-ray: Radiologist's impression: Normal for age Labs Result Diagrams: 05/18/18 12:16 05/18/18 12:16 Labs: Laboratory Results - last 24 hr 05/18/18 05/18/18 05/18/18 12:16 12:16 12:16 WBC 10.0 RBC 5.04 Hgb 15.0 Hct 45.5 MCV 90.2 MCH 29.8 MCHC 33.0 RDW 13.6 Plt Count 411 H Neut % (Auto) Lymph % (Auto) [place] % (Auto) Eos % (Auto) Baso % (Auto) Neut # (Auto) 5300 Lymph # (Auto) 3700 [place] # (Auto) 600 Eos # (Auto) 300 Baso # (Auto) 100 Total Counted 100 Seg Neutrophils % 44.0 Lymphocytes % (Manual) 26.0 Atypical Lymphs % 24.0 H Monocytes % (Manual) 4.0 Eosinophils % (Manual) 2.0 Neutrophils # (Manual) 4400 RBC Morphology Normal morphology PT 11.3 INR 1.0 APTT 34 Sodium 137 Potassium 3.7 Chloride 97 L Carbon Dioxide 26 BUN 13 Creatinine 0.60 Estimated GFR > 60.0 BUN/Creatinine Ratio 21.7 Glucose 106 Calcium 10.1 Total Bilirubin 0.4 AST 31 ALT 53 H Alkaline Phosphatase 118 Total Creatine Kinase 51 CK-MB (CK-2) TNP CK-MB (CK-2) Rel Index TNP Troponin I < 0.012 Total Protein 8.9 H Albumin 5.2 H Globulin 3.7 Albumin/Globulin Ratio 1.4 Lipase 94 TSH 05/18/18 12:16 WBC RBC Hgb Hct MCV MCH MCHC RDW Plt Count Neut % (Auto) Lymph % (Auto) [place] % (Auto) Eos % (Auto) Baso % (Auto) Neut # (Auto) Lymph # (Auto) [place] # (Auto) Eos # (Auto) Baso # (Auto) Total Counted Seg Neutrophils % Lymphocytes % (Manual) Atypical Lymphs % Monocytes % (Manual) Eosinophils % (Manual) Neutrophils # (Manual) RBC Morphology PT INR APTT Sodium Potassium Chloride Carbon Dioxide BUN Creatinine Estimated GFR BUN/Creatinine Ratio Glucose Calcium Total Bilirubin AST ALT Alkaline Phosphatase Total Creatine Kinase CK-MB (CK-2) CK-MB (CK-2) Rel Index Troponin I Total Protein Albumin Globulin Albumin/Globulin Ratio Lipase TSH 2.22 Assessment & Plan Assessment & Plan narrative: This is a 67-year-old female with history of hypertension presents with acute dyspnea due to atrial fibrillation with RVR. 1. New onset atrial fibrillation with RVR -normal troponin, normal lytes, normal TSH, no clinical evidence of CHF -outpatient echo 11/20/2017 LVEF 60-65%, mild dilated LA, mild MR, probably does not need echo repeated -reported adverse reaction to diltiazem -control ventricular rate with beta-jeevan, increase patient's atenolol to 50 mg twice daily -for anticoagulation start Eliquis 5 mg b.i.d. -telemetry monitored -observation status 2. Hypertension -acutely hypertensive in the ER with BP in range of 160/100 -increase atenolol as above for rate control, add additional therapy if needed
[2018-05-18 17:14] LABS: Add Manual Diff / Slide Review YES
[2018-05-18] MEDS: ATENOLOL 50 MG TABLET PO (18:14)
[2018-05-18] MEDS: SODIUM CHLORIDE 0.9% FLUSH 10 ML IV (20:30)
[2018-05-18] MEDS: APIXABAN 5 MG TABLET PO (20:44)
--- NOTE | 2018-05-18 23:48 | PC.NURSE ---
Pt arrived to room 216 from ED via bed. A/O x3, denies chest pain, nausea, SOB, or heart palpations, no diaphoresis. Hx HTN and mitral valve prolapse. Pt reports allergy to Cardizem. BP 172/92, Hr 78. New order for Elequis 5mg BID,and atenolol 50mg BID instead of daily. Telemetry in place with NSR 72, NSR 62. reg diet. RAC SL. SBA to BRP, bed alarm on for safety.
[2018-05-19 00:33] VITALS: BP 110/55; PULSE 58; RESP 16; TEMP 36.6; O2SAT 98
[2018-05-19 05:57] VITALS: BP 133/70; PULSE 61; RESP 16; TEMP 36.6; O2SAT 99
[2018-05-19] MEDS: ATENOLOL 50 MG TABLET PO (06:57)
[2018-05-19 07:45] VITALS: BP 140/72; PULSE 57; RESP 16; TEMP 36.6; O2SAT 100
[2018-05-19 08:16] VITALS: O2SAT 98
[2018-05-19] MEDS: APIXABAN 5 MG TABLET PO (09:15)
[2018-05-19] MEDS: SODIUM CHLORIDE 0.9% FLUSH 10 ML IV (09:23)
--- NOTE | 2018-05-19 11:22 | PC.NURSE ---
Day shift: Pt left unit with her spouse at approx 1122. She chose to ambulate to private car. Went with student ROMY Good. Paperwork signed and all questions answered. scrips sent to Pt's pharmacy by . Has all personal belongings.
--- NOTE | 2018-05-19 15:53 | CM.DANOTE ---
Discharge Planning/Care Management DCP: assessment: case received this morning and discussed in Team Rounds. Dr. Munson noted that he would be seeing pt and that she might be ok for d/c to home and clinic followup. Documentation revealed that pt is a 67 year old who admitted yesterday afternoon to the care of the hospitalist team. PCP: listed as Dr. Dajuan Jurado. Payer: Medicare and [employer]. UR RN confirmed that thus far Admission status: OBS was appropriate. Checked in later in the day with intent to meet pt and continue this assessment process. A d/c order but no d/c summary were noted. Room was empty. ROMY English confirmed that pt did go home at 1122 with her spouse and no concerns re the d/c were expressed by the care team members. LOS < 24 hours. Advanced directive, confirm from FAMILY Start: 05/18/18 16:42 Freq: Q24H Status: Discharge Protocol: Document 05/18/18 16:42 MLA (Rec: 05/18/18 22:29 MLA [id number]) Advance Directive, confirm on record Time 16:30 Person contacted Patient Copy received No CM Discharge Assessment Start: 05/19/18 15:52 Freq: Status: Active Protocol: Document 05/19/18 15:52 ITV (Rec: 05/19/18 15:53 [email or web address] [id number]) Discharge Planning Assessment Advance Directives? No History Provided By Patient Prior Living Arrangements House Household Members spouse Independent with ADL's Yes Is patient alert and oriented? Yes Review Status In Process Next Review Type Continued Stay Review Discharge Planning/Care Management Advanced directive, confirm from FAMILY Start: 05/18/18 16:42 Freq: Q24H Status: Discharge Protocol: Document 05/18/18 16:42 MLA (Rec: 05/18/18 22:29 MLA [id number]) Advance Directive, confirm on record Time 16:30 Person contacted Patient Copy received No CM Discharge Assessment Start: 05/19/18 15:52 Freq: Status: Active Protocol: Document 05/19/18 15:52 ITV (Rec: 05/19/18 15:53 ITV [id number]) Discharge Planning Assessment Advance Directives? No History Provided By Patient Prior Living Arrangements House Household Members spouse Independent with ADL's Yes Is patient alert and oriented? Yes Review Status In Process Next Review Type Continued Stay Review
--- NOTE | 2018-05-19 19:31 | PM.DS.1 ---
History of Present Illness Chief complaint: heart issues,shakes,sweating,sob Narrative: Patient is a 67-year-old female with history of mitral valve prolapse, hypertension presented to emergency department with complaints of shortness of breath and palpitations. Past few days she felt short of breath with exertion. Around 11:00 a.m. today she began to have shortness of breath at rest and more palpitations. Denies chest pain. She was noted to be in AFib with ventricular rate 130 to 150s on initial evaluation. She denies previous history of atrial fibrillation. A few months ago she had episode acute tachycardia and dyspnea which was evaluated by paramedics but no diagnosis made of atrial fibrillation. She received 3 doses 5 mg IV metoprolol and dose of digoxin 0.25 mg IV in the ER with improvement of ventricular rate. She reports history of adverse reaction to Cardizem which was given to her for high blood pressure. She states she was taken off of atenolol and started on Cardizem and within a few days her blood pressure and heart rate both spiked up and she was told not to take Cardizem again. Currently she is on atenolol 50 mg daily for BP control. Patient did have outpatient transthoracic echo on 11/20/2017 which showed LV EF 60-65%, mildly dilated LA, mild MR. Family history negative for atrial fibrillation or [place]. Discharge Providers Date of admission: 05/18/18 14:08 Discharge Date: 05/19/18 Primary care physician: Marshall Jurado MD Discharge provider: Dontrell Munson MD Summary Discharge Diagnosis: 1. Paroxysmal atrial fibrillation with RVR 2. Hypertension Hospital Course: Patient admitted for AFib with RVR. She was put on telemetry. We increased her atenolol from 50 mg q.d. to 50 mg b.i.d.. During the night she converted to sinus rhythm. In sinus, her resting rate was right around 60. Symptoms related to AFib have resolved. She was also started on Eliquis for anticoagulation based on CHADS2 Vasc criteria. She will follow up with PCP Dr. Jurado. Status at Discharge Functional status at discharge: independent ambulation Overall status at discharge: patient is back to baseline Time Spent with Patient Greater than 30 minutes Exam Vital Signs (past 8 hours): Oxygen Delivery Method Room Air Oxygen Flow Rate 0 Objective Labs Result Diagrams: 05/18/18 12:16 05/18/18 12:16 Labs: Laboratory Results - last 24 hr 05/18/18 12:16 Smear Path Review Discharge Plan Discharge Plan Patient Disposition: Home Discharge Med Rec/Prescriptions Prescriptions: New atenolol 50 mg tablet 50 mg PO BID Qty: 60 RF: 0 Eliquis 5 mg tablet 5 mg PO BID Qty: 60 RF: 0 Continued esomeprazole magnesium [Nexium] 40 MG capsule,delayed release(DR/EC) 40 mg PO BID Qty: 0 RF: 0 Calcium 1 tab PO DAILY RF: 0 Vitamin D3 1 tab PO DAILY RF: 0 Discontinued atenolol 50 mg tablet 50 mg PO QPM RF: 0 Follow up/Referrals: Marshall Jurado MD [Primary Care Provider] - (PLEASE CALL & SCHEDULE A HOSPITAL FOLLOW UP APPOINTMENT WITH DR JURADO [phone]) Provider Discharge Instructions Diet: Diet as Tolerated Visit Report/Discharge Packet Instructions: Atrial Fibrillation, DI for Atrial Fibrillation, Atenolol, Apixaban Discharge Data Primary Care Provider: Marshall Jurado Attending Provider: Dontrell Munson Admit Date/Time: 05/18/18 14:08 Discharges patient from system. Discharge Date/Time: 05/19/18 11:23 Quality VTE Deep Vein Thrombosis/Pulmonary Embolism Present on Admission: No
== END 2018-05-19 11:23 | disposition home or self-care (01) ==
LOC: ED 13:01 → AC 14:08
PROVIDERS: Admitting Provider Internal Medicine; Emergency Provider Emergency Medicine; PCP Internal Medicine; Visit Provider Internal Medicine
DX: I48.0 Paroxysmal atrial fibrillation (principal); R07.9 Chest pain, unspecified; I10 Essential (primary) hypertension; I48.91 Unspecified atrial fibrillation
CPT/HCPCS: 36415; 36591; 71045; 80053; 82550; 83690; 84443; 84484; 85025; 85610; 85730; 93005; 96374; 96375; 99285; 99291; 99292; G0378; J1160

== ENCOUNTER → 2018-09-21 10:06 | Outpatient (CLI) | payer MEDICARE, OTHER, SELFPAY ==
[2018-05-18 16:15] VITALS: BMI 27.4
[2018-09-21 11:30] LABS: Alanine Aminotransferase 44 IU/L (9-52); Albumin 4.5 g/dL (3.5-5.0); Albumin Globulin Ratio 1.5 (1.0-2.8); Alkaline Phosphatase 95 U/L (38-126); Aspartate Aminotransferase 34 IU/L (14-36); Bilirubin Total 0.4 mg/dL (0.2-1.3); Bilirubin Unconjugated 0.2 mg/dL (0.0-1.1); HEMOLYSIS < 15 (0-50); Total Protein 7.5 g/dL (6.3-8.2)
== END ==
PROVIDERS: Family Provider Internal Medicine; PCP Internal Medicine; Visit Provider Internal Medicine Gastroenterology
DX: R94.5 Abnormal results of liver function studies (principal); R11.0 Nausea
CPT/HCPCS: 36415; 80076

== ENCOUNTER → 2018-10-19 11:46 | Outpatient (CLI) | payer MEDICARE, OTHER, SELFPAY ==
[2018-05-18 16:15] VITALS: BMI 27.4
[2018-10-19 12:55] LABS: Blood Urea Nitrogen 11 mg/dL (7-17); Calcium 9.7 mg/dL (8.4-10.2); Carbon Dioxide 31 mmol/L (22-32); Chloride 88 mmol/L (98-107); Estimated Glomerular Filt Rate > 60.0 mL/min (>60); Glucose 93 mg/dL (80-110); HEMOLYSIS < 15 (0-50); Sodium 131 mmol/L (137-145)
== END ==
PROVIDERS: PCP Internal Medicine; Visit Provider Otolaryngology Facial Plastic Surgery
DX: Z01.812 Encounter for preprocedural laboratory examination (principal)
CPT/HCPCS: 36415; 80048

== ENCOUNTER → 2019-03-02 07:30 | Outpatient (CLI) | payer MEDICARE, OTHER, SELFPAY ==
[2018-05-18 16:15] VITALS: BMI 27.4
--- NOTE | 2019-03-02 | DI.NM.S_ITS ---
PROCEDURE: NM BONE SCAN WHOLE BODY RADIOPHARMACEUTICAL: 22 mCi Tc-99m MDP IV. INDICATIONS: Trochanteric bursitis, right hip TECHNIQUE: Delayed whole-body scintigrams were obtained approximately 3-4 hours after intravenous injection of radiotracer. Anterior and posterior views were acquired from vertex to feet. Additional left and right oblique views of the pelvis and hips were obtained. COMPARISON: [facility], CR, XR PELVIS WITH LATERAL HIP RIGHT, 12/30/2018, 9:58. [facility], CR, [id number] W PEL IF PERFORMED, 01/09/2017, 15:01. FINDINGS: There is a right hip arthroplasty. Low-level activity around the right hip prosthesis is compatible with postsurgical change. There is increased activity in the paratracheal area, likely secondary to rhinitis/paranasal sinus disease. No lesions are identified in skull, sternum, clavicles, scapulae, ribs, bony pelvis, and visualized shafts of the long bones. There is low level increased uptake in cervical, thoracic and lumbar spine with distribution indistinguishable from degenerative disc and facet disease. There are foci of increased periarticular activity involving shoulders, sternoclavicular joints, wrists, hands, left hip, knees and feet, compatible with degenerative/arthritic changes. IMPRESSION: 1. Right hip arthroplasty with expected postsurgical change. 2. Degenerative/arthritic changes multiple peripheral joints. Dictated by: Tisha August M.D. on 03/02/2019 at 13:43 Approved by: Tisha August M.D. on 03/02/2019 at 13:47
== END ==
PROVIDERS: PCP Internal Medicine; Visit Provider Orthopaedic Surgery
DX: M70.61 Trochanteric bursitis, right hip (principal); Z96.641 Presence of right artificial hip joint
CPT/HCPCS: 78306; A9503

== ENCOUNTER → 2019-03-29 13:40 | Outpatient (CLI) | payer MEDICARE, OTHER, SELFPAY ==
[2018-05-18 16:15] VITALS: BMI 27.4
--- NOTE | 2019-03-29 | DI.MRI.S_ITS ---
PROCEDURE: MR LUMBAR SPINE WO CON INDICATIONS: Radiculopathy, lumbar region TECHNIQUE: Noncontrast sagittal T1 spin echo and T2 fast echo, sagittal STIR, axial T1 and T2 fast spin echo through the lumbar spine. In cases with scoliosis, additional coronal T2 fast spin echo may be performed. COMPARISON: [facility], MR, L-SPINE WITHOUT CONTRAST, 03/24/2015, 16:29. [facility], MR, L-SPINE WITHOUT CONTRAST, 12/08/2012, 7:39. FINDINGS: Image quality: Excellent. Alignment and Curvature: There is mild retrolisthesis seen at the L1 to level. Minimal retrolisthesis is seen at L2-L3 at L3-L4. Bone Marrow: Marrow is of normal overall signal. No acute vertebral body compression fractures. Spinal Cord: Conus medullaris terminates at the T12-L1 level. Visualized cord demonstrates normal signal and size. Paraspinous Soft Tissues: No paravertebral masses. T12-L1: Moderate loss of disc height is seen. Loss of disc signal is seen. Mild generalized disc bulge is seen. Mild facet joint hypertrophy is seen. These imaging findings have progressed compared to the prior study. L1-L2: Moderate loss of disc height is seen. Loss of disc signal is seen. Moderate generalized disc bulge is seen. Mild facet joint hypertrophy is seen. L2-L3: Sgst-pe-[id number] loss of disc height is seen. Loss of disc signal is seen. Moderate disc bulge is seen, with a disc protrusion involving the right lateral recess. There is mild left-sided and moderate right-sided neural foraminal narrowing seen. Moderate central canal narrowing is seen. These imaging findings have progressed compared to the prior study. L3-L4: The disc height is well-preserved. Loss of disc signal is seen at this level. Moderate disc bulge is seen, which is eccentric to the right. Mild facet joint hypertrophy is seen. Moderate bilateral neural foraminal narrowing is seen. Moderate central canal narrowing is seen. When comparison is made with the prior examination, these findings are similar. L4-L5: The disc height is well-preserved. Loss of disc signal is seen at this level. Moderate generalized disc bulge is seen. Moderate to prominent facet hypertrophy is seen. There is associated moderate hypertrophy of the ligamentum flavum. There is moderate right-sided and mild to moderate left-sided neural foraminal narrowing seen. Moderate central canal narrowing is seen. These imaging findings have progressed compared to the prior study. L5-S1: The disc height is well-preserved. Loss of disc signal is seen at this level. Mild generalized disc bulge is seen. Moderate facet joint hypertrophy is seen. No significant neural foraminal narrowing is seen. Mild central canal narrowing is seen at this level. When comparison is made with the prior examination, these findings are similar. IMPRESSION: Multiple levels of lumbar spine degenerative change are seen, which are overall progressed in severity compared to the 2016 examination. Dictated by: Ayaz Leon M.D. on 03/29/2019 at 14:13 Approved by: Ayaz Leon M.D. on 03/29/2019 at 14:19
--- NOTE | 2019-03-29 | DI.MG.S_ITS ---
BILATERAL DIGITAL SCREENING MAMMOGRAM 3D/2D WITH CAD: 03/29/2019 CLINICAL: Routine screening. Comparison is made to exam dated: 02/25/2018 [facility]. There are scattered fibroglandular elements in both breasts. Current study was also evaluated with a Computer Aided Detection (CAD) system. No significant masses, calcifications, or other findings are seen in either breast. There has been no significant interval change. IMPRESSION: NEGATIVE There is no mammographic evidence of malignancy. A 1 year screening mammogram is recommended. This exam was interpreted at Station ID: [id number]. NOTE: For mammograms, a report in lay terms will be sent to the patient. Approximately 15% of breast malignancies will not be visualized mammographically. In the management of a palpable breast mass, a negative mammogram must not discourage biopsy of a clinically suspicious lesion. Electronically Signed By: Nikole schmidt/lloyd:03/31/2019 09:32:02 letter sent: Normal Exam ACR BI-RADS Category 1: Negative [id number]
== END ==
PROVIDERS: Family Provider Internal Medicine; PCP Internal Medicine; Visit Provider Orthopaedic Surgery
DX: Z12.31 Encounter for screening mammogram for malignant neoplasm of breast (principal); M47.26 Other spondylosis with radiculopathy, lumbar region; M47.27 Other spondylosis with radiculopathy, lumbosacral region
CPT/HCPCS: 72148; 77063; 77067

== ENCOUNTER → 2019-07-26 13:35 | Outpatient (CLI) | payer MEDICARE, OTHER, SELFPAY ==
[2018-05-18 16:15] VITALS: BMI 27.4
--- NOTE | 2019-07-26 | DI.RAD.S_ITS ---
PROCEDURE: XR RIBS RT MIN 3V W CXR 1V INDICATIONS: RIB PAIN ON RT SIDE. TECHNIQUE: 3 views of the right ribs were acquired, along with a single view chest. COMPARISON: None. FINDINGS: Surgical changes and devices: Cholecystectomy clips. Bones and chest wall: Minimally displaced lateral right 10th rib fracture. No suspicious bony lesions. Overlying soft tissues appear unremarkable. Lungs and pleura: No pleural effusions or pneumothorax. Lungs appear clear. Mediastinum: Mediastinal contours appear normal. Heart size is normal. IMPRESSION: No acute pulmonary process. Minimally displaced lateral right 10th rib fracture. Dictated by: Chantal Acosta M.D. on 07/26/2019 at 16:33 Approved by: Chantal Acosta M.D. on 07/26/2019 at 16:34
== END ==
PROVIDERS: Family Provider Internal Medicine; PCP Internal Medicine; Referring Provider Internal Medicine; Visit Provider Internal Medicine
DX: R07.81 Pleurodynia (principal); S22.31XA Fracture of one rib, right side, initial encounter for closed fracture; X58.XXXA Exposure to other specified factors, initial encounter
CPT/HCPCS: 71101

== ENCOUNTER → 2020-01-25 15:37 | Outpatient (ROUT) | payer MEDICARE, OTHER, SELFPAY ==
[2018-05-18 16:15] VITALS: BMI 27.4
[2020-01-25 15:45] LABS: Add Manual Diff / Slide Review NO; Basophils Absolute Auto 100 /uL (0-100); Basophils Percent Auto 1.4 % (0-2); Eosinophils Absolute Auto 200 /uL (0-450); Eosinophils Percent Auto 3.2 % (2-4); Hematocrit 41.6 % (36-46); Hemoglobin 13.7 g/dL (12.0-16.0); Lymphocytes Absolute Auto 1900 /uL (1100-4500); Lymphocytes Percent Auto 28.6 % (25-40); Mean Corpuscular HGB Conc 32.9 % (30-36); Mean Corpuscular Hemoglobin 29.6 PG (26-34); Mean Corpuscular Volume 90.1 fL (80-100); Monocytes Absolute Auto 600 /uL (0-900); Monocytes Percent Auto 8.7 % (3-14); Neutrophils Absolute Auto 3900 /uL (1500-7000); Neutrophils Percent Auto 58.1 % (50-75); Platelet Count 337 X10^3/uL (150-400); Red Blood Cell Count 4.62 X10^6/uL (4.0-5.2); Red Cell Distribution Width 13.6 % (11.6-14.8); White Blood Cell Count 6.7 X10^3/uL (4.5-11.0)
[2020-01-25 16:03] LABS: Alanine Aminotransferase 81 IU/L (<35); Albumin 4.1 g/dL (3.5-5.0); Albumin Globulin Ratio 1.4 (1.0-2.8); Alkaline Phosphatase 105 U/L (38-126); Aspartate Aminotransferase 54 IU/L (14-36); BUN Creatinine Ratio 28.8 (6-22); Bilirubin Total 0.5 mg/dL (0.2-1.3); Blood Urea Nitrogen 15 mg/dL (7-17); Calcium 9.4 mg/dL (8.4-10.2); Carbon Dioxide 33 mmol/L (22-32); Chloride 90 mmol/L (98-107); Estimated Glomerular Filt Rate > 60.0 mL/min (>60); Globulin 2.9 g/dL (1.7-4.1); Glucose 97 mg/dL (80-110); HEMOLYSIS 24 (0-50); Potassium 3.5 mmol/L (3.4-5.1); Sodium 130 mmol/L (137-145)
[2020-01-25 16:31] LABS: TSH w/ Reflex to FT4 1.28 uIU/mL (0.47-4.68)
== END ==
PROVIDERS: Family Provider Internal Medicine; PCP Internal Medicine; Visit Provider Internal Medicine
DX: I10 Essential (primary) hypertension (principal); K75.81 Nonalcoholic steatohepatitis (NASH); I48.91 Unspecified atrial fibrillation
CPT/HCPCS: 80053; 84443; 85025

== ENCOUNTER → 2020-02-07 14:13 | Outpatient (CLI) | payer MEDICARE, OTHER, SELFPAY ==
[2018-05-18 16:15] VITALS: BMI 27.4
--- NOTE | 2020-03-03 14:38 | PM.CARDMON.1 ---
[employer] Report Referral & Results Date Patient Seen: 02/07/20 Requesting provider: Marshall Jurado Indication: Atrial fibrillation Duration of monitoring (days): 14 Diary information: There are no patient diary entries or patient triggered events to review Data: Minimum heart rate identified was 49 beats per minute at 01:07 on 02/21/2020 Maximum sinus heart rate was 130 beats per minute at 15:22 on 02/11/2020 Maximum overall heart rate was 187 beats per minute at 18:11 on 02/09/2020 during a 12 beat run of SVT Less than 1% of identified beats or either ventricular supraventricular ectopic in origin There were 44 runs of SVT/atrial tachycardia with the fastest being the 12 beat run above and the longest lasting 10.7 seconds at a rate of 130 beats per minute, which suggest more atrial tachycardia than true SVT Impression: 14 day panel monitor showing where SVT as above. No episodes of atrial fibrillation identified on this study Clinical correlation suggested
== END ==
PROVIDERS: Family Provider Internal Medicine; PCP Internal Medicine; Referring Provider Internal Medicine; Visit Provider Internal Medicine
DX: I48.91 Unspecified atrial fibrillation (principal)
CPT/HCPCS: 0296T; 0298T

== ENCOUNTER 2020-03-05 09:35 | Emergency (ER) | payer MEDICARE, OTHER, SELFPAY ==
[2018-05-18 16:15] VITALS: BMI 27.4
[2020-03-05] VITALS (8 sets, daily range): BP systolic 177–218; BP diastolic 78–93; PULSE 58–67; RESP 12–25; TEMP 36.7; O2SAT 96–99; BMI 27.4
--- NOTE | 2020-03-05 09:36 | DI.CT.S_ITS ---
PROCEDURE: CT HEAD/BRAIN WO CON INDICATIONS: severe headache on xeralto TECHNIQUE: Noncontrast 4.5 mm thick angled axial sections acquired from the foramen magnum to the vertex, with coronal and sagittal reformats. For radiation dose reduction, the following was used: automated exposure control, adjustment of mA and/or kV according to patient size. COMPARISON: None. FINDINGS: Image quality: Excellent. CSF spaces: Basal cisterns are patent. No extra-axial fluid collections. Ventricles are normal in size and shape. Brain: No midline shift. Tiny curvilinear densities at the bilateral basal ganglia. These are most compatible with basal ganglia calcifications. No intracranial masses or hemorrhage. Nugent-white matter interface is within normal limits. No large area of hypodensity in a vascular distribution to suggest acute infarction. Skull and face: Calvarium and visualized facial bones are intact, without suspicious lesions. Sinuses: Visualized sinuses and mastoids are clear. IMPRESSION: No acute intracranial abnormality. Dictated by: Kishor Alexandre M.D. on 03/05/2020 at 9:56 Approved by: Kishor Alexandre M.D. on 03/05/2020 at 9:58
--- NOTE | 2020-03-05 09:36 | DI.RAD.S_ITS ---
PROCEDURE: XR CHEST 1V INDICATIONS: short of breath TECHNIQUE: One view of the chest was acquired. COMPARISON: [facility], CR, XR RIBS RT MIN 3V W CXR 1V, 07/26/2019, 13:42. [facility], CR, XR CHEST 1V, 05/18/2018, 12:09. [facility], CR, XR CHEST 1V, 11/18/2017, 20:38. FINDINGS: Surgical changes and devices: None. Lungs and pleura: Lungs are clear. No pleural effusions or pneumothorax. Mediastinum: Mediastinal contours appear normal. Heart size is normal. Bones and chest wall: No suspicious bony lesions. Overlying soft tissues appear unremarkable. IMPRESSION: No acute cardiopulmonary abnormality. Dictated by: Kishor Alexandre M.D. on 03/05/2020 at 8:51 Approved by: Kishor Alexandre M.D. on 03/05/2020 at 8:53
--- NOTE | 2020-03-05 10:37 | ED_ITS ---
HPI - General Adult General Chief complaint: Hypertension Stated complaint: Hypertension Time Seen by Provider: 03/05/20 09:36 Source: patient and EMS Mode of arrival: EMS Limitations: no limitations History of Present Illness HPI narrative: Patient is a 69-year-old female with history of atrial fibrillation .hypertension presenting with generalized weakness and headache. She states that her blood pressure has been quite elevated. She states yesterday she started having quite a severe headache for which she took Tylenol for. She was able to sleep last night she denies any nausea or vomiting. This morning she felt chilled and weak all over. She also is complaining of some shortness of breath. She knows that her blood pressure was quite elevated 200s. She overall does not feel well. She denies any chest pain. Related Data Home Medications Medication Instructions Recorded Confirmed esomeprazole magnesium [Nexium] 40 mg PO BID #0 01/09/17 05/18/18 Calcium 1 tab PO DAILY 05/18/18 05/18/18 Vitamin D3 1 tab PO DAILY 05/18/18 05/18/18 Previous Rx's Medication Instructions Recorded apixaban [Eliquis] 5 mg PO BID #60 tab 05/19/18 atenolol 50 mg PO BID #60 tab 05/19/18 Allergies Allergy/AdvReac Type Severity Reaction Status Date / Time diltiazem [From Cardizem] AdvReac Palpitation Verified 05/19/18 00:04 s Review of Systems Review of Systems ROS Unobtainable: All systems reviewed & are unremarkable except as noted in HPI and below Constitutional Constitutional: Denies chills, Denies fever(s), Reports headache(s), Denies lethargy and Reports weakness ENT Ears, Nose, Mouth, and Throat: Denies dizziness and Reports headache(s) Cardiovascular Cardiovascular: Denies chest pain, Denies irregular heart rhythm, Reports lightheadedness, Denies palpitations, Reports dyspnea, Denies dyspnea on exertion and Denies orthopnea Respiratory Respiratory: Denies cough, Reports dyspnea, Denies dyspnea on exertion and Denies wheezing Gastrointestinal Gastrointestinal: Denies abdominal pain, Denies change in bowel habits, Denies diarrhea, Denies nausea and Denies vomiting Musculoskeletal Musculoskeletal: Denies back pain, Denies myalgias and Denies myalgias Integumentary/Breasts Skin/Breast: Denies pruritus, Denies erythema, Denies rash and Denies wounds Neurologic Neurologic: Reports as per HPI, Denies confusion, Denies dizziness, Reports headache(s) and Reports weakness Psychiatric Psychiatric: Denies confusion Endocrine Endocrine: Denies palpitations Allergic/Immunologic Allergic/Immunologic: Denies wheezing Patient History Medical History (Updated 03/05/20 @ 11:50 by Kellen Ko DO) Adverse drug effect Elevated LFTs Hypertension Right leg swelling Surgical History S/P total hip arthroplasty Social History household members: spouse Smoking Status: Never smoker Smoking Status: Never smoker alcohol intake frequency: 0-2 drinks per day Substance Use Type: does not use Exam Initial Vital Signs Initial Vital Signs: Vital Signs Temperature 98.0 F 03/05/20 09:30 Pulse Rate 67 03/05/20 09:30 Respiratory Rate 18 03/05/20 09:30 Blood Pressure 218/93 H 03/05/20 09:30 Pulse Oximetry 99 03/05/20 09:30 GENERAL: 69-year-old female appears weak HEENT: Head atraumatic,EOMI, pupils reactive, face symmetric, moist mucous membranes CARDIOVASCULAR: Regular rate and rhythm without murmurs, rubs or gallops. RESPIRATORY: Breath sounds equal bilaterally, no wheezes rales or rhonchi. ABDOMEN: Soft, nontender. Normoactive bowel sounds all 4 quadrants. No guarding or rebound. EXTREMITIES: Normal range of motion, no clubbing or edema. Neurovascularly intact NEUROLOGICAL: Alert and oriented x4.Normal gait and speech. Cranial nerves II through XII grossly intact. Good [id number], good [id number], strength equal bilaterally, no dysarthria or aphasia, sensation in tact to soft touch bilaterally, no visual changes, no facial droop SKIN: Warm, dry, no laceration, no petechiae, no rashes or lesions. Scores NIH Stroke Scale Level of Conciousness: Alert, keenly responsive Ask month/age: Answers both questions correctly. Open/close eyes, close hand: Performs both tasks correctly Best gaze horizontal: Normal Visual [place]: No visual loss Facial palsy: Normal symetrical movement Left arm drift: No drift for full 10 sec Right arm drift: No drift for full 10 sec Left leg drift: No drift for full 5 sec Right leg drift: No drift for full 5 sec Limb ataxia: Absent Sensory on face/arms/legs: Normal, no sensory loss Best language: No aphasia, normal Dysarthria: Normal Extinction or inattention: No abnormality Total NIH Stroke scale score: 0 Course Orders Ordered: ED Orders 03/05/20 09:36 CT head/brain wo con Stat XR chest 1V Stat EKG-12 Lead Stat 03/05/20 10:43 Complete Blood Count AUTO DIFF Stat Comprehensive Metabolic Panel Stat Lipase Stat NT-proBNP (BNP-Adult 18+) Stat Partial Thromboplastin Time Stat Prothrombin Time INR Stat Troponin & CK Cardiac Panel Stat Vital Signs Vital signs: Vital Signs - 8 hr 03/05/20 09:30 03/05/20 10:26 03/05/20 10:27 Temperature 98.0 F Pulse Rate 67 60 60 Respiratory Rate 18 19 12 Blood Pressure 218/93 H 182/80 H Pulse Oximetry 99 99 98 03/05/20 10:30 03/05/20 11:00 03/05/20 11:17 Temperature Pulse Rate 60 59 L 61 Respiratory Rate 12 25 H Blood Pressure 190/84 H Pulse Oximetry 98 96 96 03/05/20 11:30 03/05/20 12:05 Temperature Pulse Rate 58 L 61 Respiratory Rate 13 16 Blood Pressure 177/78 H 177/78 H Pulse Oximetry 96 96 Medical Decision Making Lab Data Lab results reviewed: Yes I reviewed the patient's lab results. Result diagrams: 03/05/20 10:43 03/05/20 10:43 Labs: Lab Results 03/05/20 03/05/20 03/05/20 Range/Units 10:43 10:43 10:43 WBC 6.9 (4.5-11.0) X10^3/uL RBC 4.53 (4.0-5.2) X10^6/uL Hgb 14.2 (12.0-16.0) g/dL Hct 40.7 (36-46) % MCV 89.9 (80-100) fL MCH 31.3 (26-34) PG MCHC 34.8 (30-36) % RDW 13.8 (11.6-14.8) % Plt Count 327 (150-400) X10^3/uL Neut % (Auto) 57.9 (50-75) % Lymph % (Auto) 29.3 (25-40) % [place] % (Auto) 7.6 (3-14) % Eos % (Auto) 3.9 (2-4) % Baso % (Auto) 1.3 (0-2) % Neut # (Auto) 4000 (1825-3358) /uL Lymph # (Auto) 2000 (9120-8049) /uL [place] # (Auto) 500 (0-900) /uL Eos # (Auto) 300 (0-450) /uL Baso # (Auto) 100 (0-100) /uL PT 14.1 H (10.1-12.7) SECONDS INR 1.2 (0.9-1.3) APTT 41 H D (26.4-36.2) SECONDS Sodium 134 L (137-145) mmol/L Potassium 3.6 (3.4-5.1) mmol/L Chloride 97 L (98-107) mmol/L Carbon Dioxide 33 H (22-32) mmol/L BUN 12 (7-17) mg/dL Creatinine 0.44 L (0.52-1.04) mg/dL Estimated GFR > 60.0 (>60) mL/min BUN/Creatinine Ratio 27.3 H (6-22) Glucose 102 (80-110) mg/dL Calcium 9.0 (8.4-10.2) mg/dL Total Bilirubin 0.4 (0.2-1.3) mg/dL AST 41 H (14-36) IU/L ALT 76 H (<35) IU/L Alkaline Phosphatase 131 H (38-126) U/L Total Creatine Kinase 30 (30-135) U/L CK-MB (CK-2) TNP CK-MB (CK-2) Rel Index TNP Troponin I < 0.012 (0.01-0.034) ng/mL NT-Pro-B Natriuret Pep 135 H (<125) pg/mL Total Protein 7.5 (6.3-8.2) g/dL Albumin 4.2 (3.5-5.0) g/dL Globulin 3.3 (1.7-4.1) g/dL Albumin/Globulin Ratio 1.3 (1.0-2.8) Lipase 64 (23-300) U/L Urine Dip Bedside Urine Glucose Negative Bedside Urine Bilirubin - Negative Bedside Urine Ketone - Negative Urine Specific [place] 1.015 Bedside Urine Occult Blood - Negative Bedside Urine pH 7.5 Bedside Urine Protein - Negative Bedside Urine Urobilinogen - Negative Bedside Urine Nitrite - Negative Bedside Urine Leukocytes - Negative Esterase Point of care testing: Urine Dip Bedside Urine Glucose Negative Bedside Urine Bilirubin - Negative Bedside Urine Ketone - Negative Urine Specific [place] 1.015 Bedside Urine Occult Blood - Negative Bedside Urine pH 7.5 Bedside Urine Protein - Negative Bedside Urine Urobilinogen - Negative Bedside Urine Nitrite - Negative Bedside Urine Leukocytes - Negative Esterase Imaging Data CT scan - head: Radiologist's Impression: PROCEDURE: CT HEAD/BRAIN WO CON INDICATIONS: severe headache on xeralto TECHNIQUE: Noncontrast 4.5 mm thick angled axial sections acquired from the foramen magnum to the vertex, with coronal and sagittal reformats. For radiation dose reduction, the following was used: automated exposure control, adjustment of mA and/or kV according to patient size. COMPARISON: None. FINDINGS: Image quality: Excellent. CSF spaces: Basal cisterns are patent. No extra-axial fluid collections. Ventricles are normal in size and shape. Brain: No midline shift. Tiny curvilinear densities at the bilateral basal ganglia. These are most compatible with basal ganglia calcifications. No intracranial masses or hemorrhage. Nugent-white matter interface is within normal limits. No large area of hypodensity in a vascular distribution to suggest acute infarction. Skull and face: Calvarium and visualized facial bones are intact, without suspicious lesions. Sinuses: Visualized sinuses and mastoids are clear. IMPRESSION: No acute intracranial abnormality. Dictated by: Kishor Alexandre M.D. on 03/05/2020 at 9:56 Approved by: Kishor Alexandre M.D. on 03/05/2020 at 9:58 Chest x-ray: Radiologist's Impression: PROCEDURE: XR CHEST 1V INDICATIONS: short of breath TECHNIQUE: One view of the chest was acquired. COMPARISON: [facility], CR, XR RIBS RT MIN 3V W CXR 1V, 07/26/2019, 13:42. [facility], CR, XR CHEST 1V, 05/18/2018, 12:09. [facility], CR, XR CHEST 1V, 11/18/2017, 20:38. FINDINGS: Surgical changes and devices: None. Lungs and pleura: Lungs are clear. No pleural effusions or pneumothorax. Mediastinum: Mediastinal contours appear normal. Heart size is normal. Bones and chest wall: No suspicious bony lesions. Overlying soft tissues appear unremarkable. IMPRESSION: No acute cardiopulmonary abnormality. Dictated by: Kishor Alexandre M.D. on 03/05/2020 at 8:51 Approved by: Kishor Alexandre M.D. on 03/05/2020 at 8:53 ECG Data Attestation: I personally reviewed and interpreted this ECG as follows: Prior ECG tracings: available for review Interpretation: Normal sinus rhythm rate 62 p.r. interval 158 QRS [address] changes or T-wave inversions similar to previous EKG in 2019 MDM Narrative Medical decision making narrative: Patient's blood pressure has improved without any intervention from the emergency department. No sign of end-organ damage. Blood work is overall reassuring. She states that she feels much better. She has been taking her blood pressure regularly a just over the last few days it has been elevated. I recommend that she continue to take it and log it. Discharge Plan Departure Patient Disposition: Home Clinical Impression: Hypertension Instructions: DI for High Blood Pressure Activity Restrictions/Additional Instructions: *You have been diagnosed with hypertension *What to do: Please monitor your blood pressure once a day preferably in morning or night write it down make a log for your primary care provider. your blood pressure medication may need to be adjusted with yourr primary care *Continue to take medications as directed Tylenol 1000 mg every 6 hours if needed for [id number] pain *Follow up with your primary care provider in 2-3 days *Return to ER if you should have worsening headache chest pain, shortness of breath persistently elevated blood pressure greater than 185 or any new, worsening or concerning symptoms Prescriptions: No Action esomeprazole magnesium [Nexium] 40 MG capsule,delayed release(DR/EC) 40 mg PO BID Qty: 0 RF: 0 Calcium 1 tab PO DAILY RF: 0 Vitamin D3 1 tab PO DAILY RF: 0 atenolol 50 mg tablet 50 mg PO BID Qty: 60 RF: 0 Eliquis 5 mg tablet 5 mg PO BID Qty: 60 RF: 0 Referrals: Marshall Jurado MD [Primary Care Provider] -
[2020-03-05 10:57] LABS: Add Manual Diff / Slide Review NO; Basophils Absolute Auto 100 /uL (0-100); Basophils Percent Auto 1.3 % (0-2); Eosinophils Absolute Auto 300 /uL (0-450); Eosinophils Percent Auto 3.9 % (2-4); Hematocrit 40.7 % (36-46); Hemoglobin 14.2 g/dL (12.0-16.0); Lymphocytes Absolute Auto 2000 /uL (1100-4500); Lymphocytes Percent Auto 29.3 % (25-40); Mean Corpuscular HGB Conc 34.8 % (30-36); Mean Corpuscular Hemoglobin 31.3 PG (26-34); Mean Corpuscular Volume 89.9 fL (80-100); Monocytes Absolute Auto 500 /uL (0-900); Monocytes Percent Auto 7.6 % (3-14); Neutrophils Absolute Auto 4000 /uL (1500-7000); Neutrophils Percent Auto 57.9 % (50-75); Platelet Count 327 X10^3/uL (150-400); Red Blood Cell Count 4.53 X10^6/uL (4.0-5.2); Red Cell Distribution Width 13.8 % (11.6-14.8); White Blood Cell Count 6.9 X10^3/uL (4.5-11.0)
[2020-03-05 11:02] LABS: INR 1.2 (0.9-1.3); Prothrombin Time 14.1 SECONDS (10.1-12.7)
[2020-03-05 11:05] LABS: PTT Partial Thromboplastin Tim 41 SECONDS (26.4-36.2)
[2020-03-05 11:07] LABS: Alanine Aminotransferase 76 IU/L (<35); Albumin 4.2 g/dL (3.5-5.0); Albumin Globulin Ratio 1.3 (1.0-2.8); Alkaline Phosphatase 131 U/L (38-126); Aspartate Aminotransferase 41 IU/L (14-36); BUN Creatinine Ratio 27.3 (6-22); Bilirubin Total 0.4 mg/dL (0.2-1.3); Blood Urea Nitrogen 12 mg/dL (7-17); Carbon Dioxide 33 mmol/L (22-32); Chloride 97 mmol/L (98-107); Creatine Kinase 30 U/L (30-135); Estimated Glomerular Filt Rate > 60.0 mL/min (>60); Globulin 3.3 g/dL (1.7-4.1); Glucose 102 mg/dL (80-110); HEMOLYSIS 22 (0-50); Lipase 64 U/L (23-300); Potassium 3.6 mmol/L (3.4-5.1); Sodium 134 mmol/L (137-145); Total Protein 7.5 g/dL (6.3-8.2)
[2020-03-05 11:19] LABS: NT-proBNP (BNP-Adult 18+) 135 pg/mL (<125); Troponin I < 0.012 ng/mL (0.01-0.034)
== END 2020-03-05 12:06 | disposition home or self-care (01) ==
PROVIDERS: Emergency Provider Emergency Medicine; Family Provider Internal Medicine; PCP Internal Medicine
DX: I10 Essential (primary) hypertension (principal); I48.91 Unspecified atrial fibrillation; Z79.01 Long term (current) use of anticoagulants; R51.9 Headache, unspecified; R06.00 Dyspnea, unspecified
CPT/HCPCS: 36415; 70450; 71045; 80053; 81003; 82550; 83690; 83880; 84484; 85025; 85610; 85730; 93005; 99284

== ENCOUNTER → 2020-07-03 14:10 | Outpatient (CLI) | payer MEDICARE, OTHER, SELFPAY ==
[2018-05-18 16:15] VITALS: BMI 27.4
== END ==
PROVIDERS: Family Provider Internal Medicine; PCP Internal Medicine; Referring Provider Internal Medicine; Visit Provider Internal Medicine
DX: M85.852 Other specified disorders of bone density and structure, left thigh (principal); Z78.0 Asymptomatic menopausal state; E07.9 Disorder of thyroid, unspecified
CPT/HCPCS: 77080; 77081

== ENCOUNTER → 2021-12-07 07:18 | Outpatient (CLI) | payer MEDICARE, OTHER, SELFPAY ==
[2018-05-18 16:15] VITALS: BMI 27.4
[2021-12-07 09:15] LABS: HEMOLYSIS < 15 (0-50); Potassium 3.8 mmol/L (3.4-5.1)
[2021-12-07 09:16] LABS: Alanine Aminotransferase 31 IU/L (<35); Albumin 4.2 g/dL (3.5-5.0); Albumin Globulin Ratio 1.4 (1.0-2.8); Alkaline Phosphatase 73 U/L (38-126); Aspartate Aminotransferase 24 IU/L (14-36); BUN Creatinine Ratio 17.9 (6-22); Bilirubin Total 0.4 mg/dL (0.2-1.3); Blood Urea Nitrogen 10 mg/dL (7-17); Calcium 8.8 mg/dL (8.4-10.2); Carbon Dioxide 32 mmol/L (22-32); Chloride 97 mmol/L (98-107); Cholesterol 206 mg/dL (140-199); Estimated Glomerular Filt Rate > 60 mL/min (>60); Glucose 86 mg/dL (80-110); HDL Cholesterol 64 mg/dL (40-60); LDL Cholesterol Calculated 128 mg/dL (<100); Sodium 135 mmol/L (137-145); Total Protein 7.2 g/dL (6.3-8.2); Triglycerides 69 mg/dL (35-150)
== END ==
PROVIDERS: Family Provider Internal Medicine; PCP Internal Medicine; Referring Provider Internal Medicine; Visit Provider Internal Medicine
DX: I10 Essential (primary) hypertension (principal); I48.0 Paroxysmal atrial fibrillation; K75.81 Nonalcoholic steatohepatitis (NASH)
CPT/HCPCS: 36415; 80053; 80061

== ENCOUNTER → 2021-12-27 08:02 | Outpatient (CLI) | payer MEDICARE, OTHER, SELFPAY ==
[2018-05-18 16:15] VITALS: BMI 27.4
--- NOTE | 2021-12-27 08:03 | DI.MG.S_ITS ---
BILATERAL DIGITAL SCREENING MAMMOGRAM 3D/2D WITH CAD: 12/27/2021 CLINICAL: Routine screening. Comparison is made to exams dated: 03/29/2019 mammogram and 02/25/2018 mammogram - [facility]. There are scattered areas of fibroglandular density in both breasts (category b / 25%-50% glandular tissue). Current study was also evaluated with a Computer Aided Detection (CAD) system. No significant masses, calcifications, or other findings are seen in either breast. There has been no significant interval change. IMPRESSION: NEGATIVE There is no mammographic evidence of malignancy. A 1 year screening mammogram is recommended. Based on the Tyrer Cuzick model (a risk assessment model) the patient's lifetime risk is 3.9% and her 10 year risk is 2.3%. According to the ACR, ACS, and NCCN guidelines, an annual breast MRI exam along with mammogram is recommended if the patient's lifetime risk is 20% or greater. This exam was interpreted at Station ID: [id number]. NOTE: For mammograms, a report in lay terms will be sent to the patient. Approximately 15% of breast malignancies will not be visualized mammographically. In the management of a palpable breast mass, a negative mammogram must not discourage biopsy of a clinically suspicious lesion. Electronically Signed By: Adryan Velasquez M.D., jr/lloyd:12/27/2021 12:18:05 letter sent: Normal Exam ACR BI-RADS Category 1: Negative [id number]
== END ==
PROVIDERS: Family Provider Internal Medicine; PCP Internal Medicine; Referring Provider Internal Medicine; Visit Provider Internal Medicine
DX: Z12.31 Encounter for screening mammogram for malignant neoplasm of breast (principal)
CPT/HCPCS: 77063; 77067

== ENCOUNTER 2022-02-08 15:20 | Observation (INO) | payer MEDICARE, OTHER, SELFPAY ==
[2018-05-18 16:15] VITALS: BMI 27.4
[2022-02-08] VITALS (34 sets, daily range): BP systolic 124–213; BP diastolic 70–118; PULSE 83–157; RESP 10–44; TEMP 36.4–36.8; O2SAT 96–100; BMI 26.6
--- NOTE | 2022-02-08 15:27 | DI.RAD.S_ITS ---
PROCEDURE: XR CHEST 1V INDICATIONS: chest pain TECHNIQUE: One view of the chest was acquired. COMPARISON: [facility], CR, XR CHEST 1V, 03/05/2020, 9:39. [facility], CR, XR CHEST 1V, 05/18/2018, 12:09. FINDINGS: Surgical changes and devices: None. Lungs and pleura: Lungs are clear. No pleural effusions or pneumothorax. Mediastinum: Mediastinal contours appear normal and unchanged. Heart size is normal. Bones and chest wall: No suspicious bony lesions. Overlying soft tissues appear unremarkable. IMPRESSION: No acute cardiopulmonary abnormality. Dictated by: Kishor Alexandre M.D. on 02/08/2022 at 16:09 Approved by: Kishor Alexandre M.D. on 02/08/2022 at 16:10
[2022-02-08 15:56] LABS: Add Manual Diff / Slide Review NO; Basophils Absolute Auto 100 /uL (0-100); Basophils Percent Auto 0.8 % (0-2); Eosinophils Absolute Auto 500 /uL (0-450); Eosinophils Percent Auto 6.9 % (2-4); Hematocrit 40.1 % (36-46); Hemoglobin 13.5 g/dL (12.0-16.0); Lymphocytes Absolute Auto 2600 /uL (1100-4500); Lymphocytes Percent Auto 37.7 % (25-40); Mean Corpuscular HGB Conc 33.6 % (30-36); Mean Corpuscular Hemoglobin 29.9 PG (26-34); Monocytes Absolute Auto 600 /uL (0-900); Monocytes Percent Auto 8.1 % (3-14); Neutrophils Absolute Auto 3200 /uL (1500-7000); Neutrophils Percent Auto 46.5 % (50-75); Platelet Count 259 X10^3/uL (150-400); Red Cell Distribution Width 13.8 % (11.6-14.8); White Blood Cell Count 6.8 X10^3/uL (4.5-11.0)
[2022-02-08] MEDS: METOPROLOL TARTRATE 5 MG/5 ML INJ IV (15:58)
[2022-02-08 16:07] LABS: Prothrombin Time 11.9 SECONDS (10.1-12.7)
[2022-02-08 16:10] LABS: PTT Partial Thromboplastin Tim 33 SECONDS (26-36)
[2022-02-08 16:13] LABS: Alanine Aminotransferase 37 IU/L (<35); Albumin 4.3 g/dL (3.5-5.0); Albumin Globulin Ratio 1.3 (1.0-2.8); Alkaline Phosphatase 102 U/L (38-126); Aspartate Aminotransferase 26 IU/L (14-36); BUN Creatinine Ratio 23.7 (6-22); Bilirubin Total 0.2 mg/dL (0.2-1.3); Blood Urea Nitrogen 14 mg/dL (7-17); Calcium 8.6 mg/dL (8.4-10.2); Carbon Dioxide 30 mmol/L (22-32); Chloride 99 mmol/L (98-107); Creatine Kinase 66 U/L (30-135); Estimated Glomerular Filt Rate > 60 mL/min (>60); Globulin 3.2 g/dL (1.7-4.1); Glucose 119 mg/dL (80-110); HEMOLYSIS 19 (0-50); Lipase 99 U/L (23-300); Magnesium 1.7 mg/dL (1.6-2.3); Potassium 3.5 mmol/L (3.4-5.1); Sodium 139 mmol/L (137-145); Total Protein 7.5 g/dL (6.3-8.2)
[2022-02-08 16:24] LABS: Troponin I < 0.012 ng/mL (0.01-0.034)
--- NOTE | 2022-02-08 17:04 | ED_ITS ---
HPI - Arrhythmia/Palpitations General Chief Complaint: Arrhythmia/Palpitations Stated Complaint: a-fib 130 heart rate SOB flutter heart Time Seen by Provider: 02/08/22 15:45 Source: patient Mode of arrival: Ambulatory Limitations: no limitations History of Present Illness HPI narrative: Patient is a 71-year-old female. History of hypertension. Has 1 prior history of atrial fibrillation that was many years ago. She states that she was treated with medications and eventually converted to sinus rhythm. She was on anticoagulation for a period of time. Has never had a cardioversion/ablation. Has been relatively asymptomatic until approximately 0200 hours this afternoon when she was knitting in her house when she had a sudden onset of feeling like her heart was beating fast and skipping beats. Some lightheadedness. No chest pain. Has not passed out. Is not currently on anticoagulation. Related Data Home Medications Medication Instructions Recorded Confirmed fluticasone propionate 50 2 spray intranasal DAILY 09/21/21 01/04/22 mcg/actuation nasal spray,suspension (Flonase Allergy Relief) methocarbamol 750 mg tablet 750 mg PO BID PRN 09/21/21 01/04/22 tramadol 50 mg tablet 50 mg PO TID PRN pain 09/21/21 01/04/22 Previous Rx's Medication Instructions Recorded carvedilol 25 mg tablet 25 mg PO BID #180 tabs 01/04/22 losartan 25 mg tablet 25 mg PO DAILY #90 tabs 01/04/22 Allergies Allergy/AdvReac Type Severity Reaction Status Date / Time ketorolac Allergy Severe Rash/Severe Verified 01/04/22 10:31 stomach pain NSAIDS (Non-Steroidal Allergy Severe Rash/Severe Verified 01/04/22 10:31 Anti-Inflamma stomach pain tetracycline Allergy Severe Rash Verified 01/04/22 10:31 diltiazem [From Cardizem] AdvReac Palpitation Verified 01/04/22 10:31 s Review of Systems Review of Systems ROS Unobtainable: All systems reviewed & are unremarkable except as noted in HPI and below Patient History Medical History Adverse drug effect Allergies (~1999) Carpal tunnel syndrome (~2013) Chicken pox (~1957) Chronic back pain (~1999) Disease of spine (~1999) Erosive gastritis (~2005) Foot pain (~2013) Fracture (~2020) GERD (gastroesophageal reflux disease) (~2005) Glaucoma (~2018) Headache (~2013) Hypertension (~1999) Irritable bowel syndrome (~2011) Measles (~1958) TOLLIVER (nonalcoholic steatohepatitis) Osteoarthritis (~2011) Osteopenia (~2014) Paroxysmal atrial fibrillation (~2018) Recurrent sinusitis (~2012) Scarlet fever (~1958) Thyroid nodule (~1996) Surgical History Anesthesia History of carpal tunnel surgery (~2014) History of cholecystectomy (~1997) History of lobectomy of thyroid (~1996) History of partial hysterectomy (~1997) History of sinus surgery History of tonsillectomy (~1970) History of tubal ligation (~1986) S/P total hip arthroplasty (~2016) Family History Father Kidney disease Mother History of heart disease Alzheimer's disease Brother No problems noted. Grandfather Cancer Grandmother History of heart disease Alzheimer's disease Grandfather Cancer Grandmother Diabetes mellitus History of heart disease Hypertension Family/Other Bronchial pneumonia Social History household members: spouse Smoking Status: Never smoker Smoking Status: Never smoker alcohol intake frequency: 0-2 drinks per day Substance Use Type: does not use Exam Initial Vital Signs Initial Vital Signs: Vital Signs Temperature 97.5 F L 02/08/22 15:24 Pulse Rate 114 H 02/08/22 15:24 Respiratory Rate 18 02/08/22 15:24 Blood Pressure 147/86 H 02/08/22 15:24 Pulse Oximetry 100 02/08/22 15:24 Oxygen Delivery Method 02/08/22 15:24 Const General: cooperative, comfortable and No ill appearing HENMT Head: normal to inspection and normocephalic Resp Effort & Inspection: normal respiratory effort Auscultation: clear to auscultation bilaterally Cardio Rate: tachycardic Rhythm: abnormal rhythm GI Inspection: normal to inspection Palpation: soft and No tender Skin General: no rashes or lesions noted Neuro General: patient alert, patient awake, patient oriented x3 and moves all extremities Cognition: normal cognition Speech: speech normal Extrem General: normal to inspection and capillary refill normal Psych Appearance: grossly normal and well kempt Procedures Cardioversion Consent Signed: Yes Indication: AFib with RVR Stability: Stable Number of attempts (shocks): 3 Joules used: 120, 150 and 200 Cardiac rhythm post-cardioversion: Atrial fibrillation Additional Comments: Unsuccessful cardioversion Procedural Sedation Consent signed: Yes Time out performed: Yes Indication: cardioversion ASA Class: I Mallampati Airway Classification: Class I Preparation: shelter monitor applied, pulse oximeter, capnometry used, supplemental O2 applied, suction/airway equipment at bedside and IV secured Fentanyl: IV Fentanyl dose (mcg): 12 IV Propofol dose (mg): 90 Scores GCS Maximino coma scale eye opening: Spontaneous Maximino coma scale verbal response: Orientated [place] coma scale motor response: Obey commands Maximino coma scale total score: 15 Course Orders Ordered: ED Orders 02/08/22 15:27 XR chest 1V Stat 02/08/22 15:45 Complete Blood Count AUTO DIFF Stat Comprehensive Metabolic Panel Stat Lipase Stat Magnesium Stat Partial Thromboplastin Time Stat Prothrombin Time INR Stat Troponin & CK Cardiac Panel Stat 02/08/22 16:45 COVID19 -Nasal RAPID/Pre-Proc Stat 02/08/22 18:35 Consult to Physician Urgent Acetaminophen (Acetaminophen 325 Mg Tablet) 650 mg PO Q6HR PRN PRN Reason: Fever/Mild Pain (1-3) Ondansetron HCl (Ondansetron 4 Mg/2 Ml Inj) 4 mg IV Q4HR PRN PRN Reason: Nausea And Vomiting Discontinued Medications Apixaban (Apixaban 5 Mg Tablet) 5 mg PO NOW ONE Stop: 02/08/22 18:27 Last Admin: 02/08/22 18:42 Dose: 5 mg Documented By: TAIWO Bacitracin (Bacitracin Oint 0.9 Gm Pckt) 1 applic TOP NOW ONE Stop: 02/08/22 18:13 Last Admin: 02/08/22 18:26 Dose: 1 applic Documented By: TAIWO Fentanyl (Fentanyl 100 Mcg/2 Ml Inj) 12.5 mcg IV NOW ONE Stop: 02/08/22 17:06 Last Admin: 02/08/22 17:32 Dose: 12.5 mcg Documented By: TAIWO Sodium Chloride (Normal Saline 0.9%) 1,000 mls @ 125 mls/hr IV CONT PAULINA Last Infusion: 02/08/22 18:09 Dose: 0 mls/hr Documented By: Infusion: 02/08/22 17:35 Dose: 999 mls/hr Documented By: Admin: 02/08/22 17:26 Dose: 125 mls/hr Documented By: TAIWO Metoprolol Succinate (Metoprolol Er 25 Mg Tablet) 25 mg PO NOW ONE Stop: 02/08/22 18:21 Last Admin: 02/08/22 18:43 Dose: Not Given Documented By: TAIWO Metoprolol Succinate (Metoprolol Er 50 Mg Tablet) 50 mg PO NOW ONE Stop: 02/08/22 18:35 Last Admin: 02/08/22 18:42 Dose: 50 mg Documented By: TAIWO Metoprolol Tartrate (Metoprolol Ir 25 Mg Tablet) 25 mg PO NOW ONE Stop: 02/08/22 15:46 Last Admin: 02/08/22 16:54 Dose: Not Given Documented By: DAMARIS Metoprolol Tartrate (Metoprolol Tartrate 5 Mg/5 Ml Inj) 5 mg IV NOW ONE Stop: 02/08/22 15:51 Last Admin: 02/08/22 15:58 Dose: 5 mg Documented By: LEONARD Propofol (Propofol 200 Mg/20 Ml Vial) 100 mg IV NOW ONE Stop: 02/08/22 17:06 Last Admin: 02/08/22 17:35 Dose: 90 mg Documented By: TAIWO Vital Signs Vital signs: Vital Signs - 8 hr 02/08/22 15:24 02/08/22 16:44 02/08/22 16:45 Temperature 97.5 F L Pulse Rate 114 H 103 H 110 H Respiratory Rate 18 23 26 H Blood Pressure 147/86 H Pulse Oximetry 100 96 97 Oxygen Delivery Method Room Air Oxygen Flow Rate 02/08/22 16:45 02/08/22 16:01 02/08/22 16:04 Temperature Pulse Rate 122 H 104 H Respiratory Rate 18 18 Blood Pressure 174/86 H 177/86 H 124/78 Pulse Oximetry Oxygen Delivery Method Oxygen Flow Rate 02/08/22 16:07 02/08/22 17:57 02/08/22 16:50 Temperature Pulse Rate 101 H 133 H 107 H Respiratory Rate 18 16 19 Blood Pressure 167/77 H Pulse Oximetry 98 Oxygen Delivery Method Oxygen Flow Rate 02/08/22 16:55 02/08/22 17:00 02/08/22 17:00 Temperature Pulse Rate 120 H 129 H Respiratory Rate 18 16 Blood Pressure 199/109 H Pulse Oximetry 97 97 Oxygen Delivery Method Oxygen Flow Rate 02/08/22 17:05 02/08/22 17:10 02/08/22 17:14 Temperature Pulse Rate 135 H 130 H Respiratory Rate 23 28 H Blood Pressure 197/85 H Pulse Oximetry 98 97 Oxygen Delivery Method Oxygen Flow Rate 02/08/22 17:14 02/08/22 17:15 02/08/22 17:15 Temperature Pulse Rate 125 H 134 H Respiratory Rate 20 21 Blood Pressure 187/96 H Pulse Oximetry 97 97 Oxygen Delivery Method Oxygen Flow Rate 02/08/22 17:21 02/08/22 17:23 02/08/22 17:23 Temperature Pulse Rate 90 132 H Respiratory Rate 16 Blood Pressure 213/90 H Pulse Oximetry 97 98 Oxygen Delivery Method Oxygen Flow Rate 02/08/22 17:25 02/08/22 17:30 02/08/22 17:31 Temperature Pulse Rate 133 H 157 H 148 H Respiratory Rate 30 H 27 H 25 H Blood Pressure Pulse Oximetry 97 97 98 Oxygen Delivery Method Nasal Cannula Oxygen Flow Rate 2 02/08/22 17:31 02/08/22 17:35 02/08/22 17:36 Temperature Pulse Rate 133 H Respiratory Rate 10 L Blood Pressure 186/118 H 143/70 H Pulse Oximetry 97 Oxygen Delivery Method Nasal Cannula Oxygen Flow Rate 2 02/08/22 17:36 02/08/22 17:40 02/08/22 17:45 Temperature Pulse Rate 132 H 114 H Respiratory Rate 17 19 Blood Pressure 153/80 H Pulse Oximetry 96 98 Oxygen Delivery Method Nasal Cannula Oxygen Flow Rate 2 02/08/22 17:45 02/08/22 17:50 02/08/22 17:55 Temperature Pulse Rate 124 H 114 H 118 H Respiratory Rate 21 33 H 12 Blood Pressure Pulse Oximetry 98 98 97 Oxygen Delivery Method Nasal Cannula Nasal Cannula Nasal Cannula Oxygen Flow Rate 2 2 2 02/08/22 18:00 02/08/22 18:01 02/08/22 18:01 Temperature Pulse Rate 105 H 116 H Respiratory Rate 12 14 Blood Pressure 157/81 H Pulse Oximetry 97 97 Oxygen Delivery Method Nasal Cannula Oxygen Flow Rate 2 02/08/22 18:30 Temperature Pulse Rate 122 H Respiratory Rate 13 Blood Pressure Pulse Oximetry 96 Oxygen Delivery Method Oxygen Flow Rate MDM - Arrhythmia/Palpitations Lab Data Attestation: I reviewed the patient's lab results. Result diagrams: 02/08/22 15:45 02/08/22 15:45 Labs: Lab Results 02/08/22 02/08/22 02/08/22 Range/Units 15:45 15:45 15:45 WBC 6.8 (4.5-11.0) X10^3/uL RBC 4.50 (4.0-5.2) X10^6/uL Hgb 13.5 (12.0-16.0) g/dL Hct 40.1 (36-46) % MCV 89.0 (80-100) fL MCH 29.9 (26-34) PG MCHC 33.6 (30-36) % RDW 13.8 (11.6-14.8) % Plt Count 259 (150-400) X10^3/uL Neut % (Auto) 46.5 L (50-75) % Lymph % (Auto) 37.7 (25-40) % [place]aines % (Auto) 8.1 (3-14) % Eos % (Auto) 6.9 H (2-4) % Baso % (Auto) 0.8 (0-2) % Neut # (Auto) 3200 (1365-1034) /uL Lymph # (Auto) 2600 (8734-2643) /uL [place]aines # (Auto) 600 (0-900) /uL Eos # (Auto) 500 H (0-450) /uL Baso # (Auto) 100 (0-100) /uL PT 11.9 (10.1-12.7) SECONDS INR 1.0 (0.9-1.3) APTT 33 (26-36) SECONDS Sodium 139 (137-145) mmol/L Potassium 3.5 (3.4-5.1) mmol/L Chloride 99 (98-107) mmol/L Carbon Dioxide 30 (22-32) mmol/L BUN 14 (7-17) mg/dL Creatinine 0.59 (0.52-1.04) mg/dL Estimated GFR > 60 (>60) mL/min BUN/Creatinine Ratio 23.7 H (6-22) Glucose 119 H (80-110) mg/dL Calcium 8.6 (8.4-10.2) mg/dL Magnesium 1.7 (1.6-2.3) mg/dL Total Bilirubin 0.2 (0.2-1.3) mg/dL AST 26 (14-36) IU/L ALT 37 H (<35) IU/L Alkaline Phosphatase 102 (38-126) U/L Total Creatine Kinase 66 (30-135) U/L CK-MB (CK-2) TNP CK-MB (CK-2) Rel Index TNP Troponin I < 0.012 (0.01-0.034) ng/mL Total Protein 7.5 (6.3-8.2) g/dL Albumin 4.3 (3.5-5.0) g/dL Globulin 3.2 (1.7-4.1) g/dL Albumin/Globulin Ratio 1.3 (1.0-2.8) Lipase 99 (23-300) U/L SARS-CoV-2 (PCR) (Negative) 02/08/22 Range/Units 16:45 WBC (4.5-11.0) X10^3/uL RBC (4.0-5.2) X10^6/uL Hgb (12.0-16.0) g/dL Hct (36-46) % MCV (80-100) fL MCH (26-34) PG MCHC (30-36) % RDW (11.6-14.8) % Plt Count (150-400) X10^3/uL Neut % (Auto) (50-75) % Lymph % (Auto) (25-40) % [place]aines % (Auto) (3-14) % Eos % (Auto) (2-4) % Baso % (Auto) (0-2) % Neut # (Auto) (8992-7742) /uL Lymph # (Auto) (7349-2043) /uL Haines # (Auto) (0-900) /uL Eos # (Auto) (0-450) /uL Baso # (Auto) (0-100) /uL PT (10.1-12.7) SECONDS INR (0.9-1.3) APTT (26-36) SECONDS Sodium (137-145) mmol/L Potassium (3.4-5.1) mmol/L Chloride (98-107) mmol/L Carbon Dioxide (22-32) mmol/L BUN (7-17) mg/dL Creatinine (0.52-1.04) mg/dL Estimated GFR (>60) mL/min BUN/Creatinine Ratio (6-22) Glucose (80-110) mg/dL Calcium (8.4-10.2) mg/dL Magnesium (1.6-2.3) mg/dL Total Bilirubin (0.2-1.3) mg/dL AST (14-36) IU/L ALT (<35) IU/L Alkaline Phosphatase (38-126) U/L Total Creatine Kinase (30-135) U/L CK-MB (CK-2) CK-MB (CK-2) Rel Index Troponin I (0.01-0.034) ng/mL Total Protein (6.3-8.2) g/dL Albumin (3.5-5.0) g/dL Globulin (1.7-4.1) g/dL Albumin/Globulin Ratio (1.0-2.8) Lipase (23-300) U/L SARS-CoV-2 (PCR) Negative (Negative) Point of Care Testing Test Results Negative ECG Data Attestation: I personally reviewed and interpreted this ECG as follows: Prior ECG tracings: available for review Interpretation: AFib Ventricular rate 122 Normal axis Occasional PVCs No ST T wave changes MDM Narrative Medical decision making narrative: She was initially given IV metoprolol which did improve her heart rate somewhat however she was still in atrial fibrillation. Three attempts at cardioversion were unsuccessful. She tolerated it well however she did sustain some topical skin little over the anterior chest pad position. This was covered with bacitracin ointment and some Telfa. Discussed the case with Cardiology. Patient does have an allergy to Cardizem. Plan will be is to start her on oral metoprolol. They recommended 50 mg of metoprolol b.i.d. with the goal of having a consistent heart rate less than 110. If this does not work then starting on IV digoxin would be the next step. Patient was also given anticoagulation. Discussed case with Dr. Vasques who is on-call for the patient's primary doctor who will admit for further evaluation and treatment. Discharge Plan Departure Patient Disposition: Admitted As Inpatient Clinical Impression: Atrial fibrillation with RVR Admit Date/Time: 02/08/22 18:35 Admit Provider: Jamie Vasques
[2022-02-08 17:15] LABS: COVID19 -Nasal RAPID Negative (Negative)
[2022-02-08] MEDS: SODIUM CHLORIDE 0.9% 1,000 ML 125 ML IV (17:26)
[2022-02-08] MEDS: fentaNYL 100 MCG/2 ML INJ 12.5 MCG IV (17:32)
[2022-02-08] MEDS: propofoL 200 MG/20 ML VIAL 100 MG IV (17:35)
[2022-02-08] MEDS: BACITRACIN OINT 0.9 GM PCKT 1 APPLIC TOP (18:26)
[2022-02-08] MEDS: METOPROLOL ER 50 MG TABLET PO (18:42)
[2022-02-08] MEDS: APIXABAN 5 MG TABLET PO (18:42)
[2022-02-09 03:00] VITALS: BP 129/71; PULSE 84; RESP 15; TEMP 36.6; O2SAT 97
--- NOTE | 2022-02-09 04:11 | PC.NURSE ---
Pt is AxOx4, independent and cooperative. Pt arrived to the unit around 2100 with Dx of A-fib. Pt is on tele and it shows A-fib 60-100s. HR did not go over 100s and pt slept well. No other changes. Continue monitor.
[2022-02-09 08:10] VITALS: BP 132/72; PULSE 71; RESP 16; TEMP 36.1; O2SAT 98
--- NOTE | 2022-02-09 10:36 | CM.DANOTE ---
Initial DCP Assessment Note Pt is a 71 yo female, resident [facility], arrives from home complaining of Arrhythmia/Palpitations, admitted for for further evaluation and treatment PCP: Gagan Chiu Payer: [employer] Reviewed chart, met w/patient this morning to introduce role. Patient is eager to return home and states she is hopeful to see the doctor soon in order to advocate for discharge home w/spouse and close outpatient f/u Patient indp and active at [facility] No barriers identified at this time to patient's safe discharge home w/family to assist; close outpatient f/u recommended. MAZIN Romero Discharge Planning/Care Management CM Discharge Assessment Start: 02/09/22 10:32 Freq: Status: Active Protocol: Document 02/09/22 10:33 DONTE (Rec: 02/09/22 10:36 DONTE [id number]) Discharge Planning Assessment Assigned Technical Adjuster MAZIN Horton DPOA/Assigned Designee Name Elvin Colon, spouse Contact Information [phone] Advance Directives? No History Provided By Patient Prior Living Arrangements House Household Members spouse Type of transporation used prior to Drives own vehicle admit Independent with ADL's Yes Is patient alert and oriented? Yes Barriers to Discharge No Comment Home w/spouse and close outpatient follow up Discharge Plan Home Transportation Arrangement Spouse Referrals Initiated None needed
--- NOTE | 2022-02-09 11:22 | P.HP_ITS ---
History of Present Illness History of Present Illness Date Patient Seen: 02/09/22 Chief complaint: a-fib 130 heart rate SOB flutter heart Narrative: PT with past hx of one episode of afib which resolved, not on meds, presented to ED with sudden onset of arrhythmia and malaise out of the blue which she recognized as afib., found to be in Afib with RVR, failed electroversion attempts x2, had recorded dilt reaction on file, Ed spoke with cardiology who recommended metopolol XL bid, she was started on that, slept ok last night, this morning she feels much better and seems to be in sinus rhythm. appetite balance breathing etc all normal. Patient History Medical History Adverse drug effect Allergies (~1999) Carpal tunnel syndrome (~2013) Chicken pox (~1957) Chronic back pain (~1999) Disease of spine (~1999) Erosive gastritis (~2005) Foot pain (~2013) Fracture (~2020) GERD (gastroesophageal reflux disease) (~2005) Glaucoma (~2018) Headache (~2013) Hypertension (~1999) Irritable bowel syndrome (~2011) Measles (~1958) TOLLIVER (nonalcoholic steatohepatitis) Osteoarthritis (~2011) Osteopenia (~2014) Paroxysmal atrial fibrillation (~2018) Recurrent sinusitis (~2012) Scarlet fever (~1958) Thyroid nodule (~1996) Surgical History Anesthesia History of carpal tunnel surgery (~2014) History of cholecystectomy (~1997) History of lobectomy of thyroid (~1996) History of partial hysterectomy (~1997) History of sinus surgery History of tonsillectomy (~1970) History of tubal ligation (~1986) S/P total hip arthroplasty (~2016) Family & Social History Family History Father Kidney disease Mother History of heart disease Alzheimer's disease Brother No problems noted. Grandfather Cancer Grandmother History of heart disease Alzheimer's disease Grandfather Cancer Grandmother Diabetes mellitus History of heart disease Hypertension Family/Other Bronchial pneumonia Social History: household members spouse Prior Living Arrangements House Safety & Behavioral: Feels Safe in Current Yes Environment Been Physically Hurt or No Threatened By a Person Tobacco & Substance use: Smoking Status Never smoker alcohol intake frequency 0-2 drinks per day Substance Use Type does not use Meds Home Medications and Allergies Home Medications Medication Instructions Recorded Confirmed Type fluticasone propionate 50 2 spray intranasal DAILY 09/21/21 02/08/22 History mcg/actuation nasal spray,suspension (Flonase Allergy Relief) methocarbamol 750 mg tablet 750 mg PO BID PRN Pain, Moderate 09/21/21 02/08/22 History tramadol 50 mg tablet 50 mg PO TID PRN pain 09/21/21 02/08/22 History losartan 25 mg tablet 25 mg PO DAILY #90 tabs 01/04/22 02/08/22 Rx apixaban 5 mg tablet (Eliquis) 5 mg PO BID #60 tabs 02/09/22 Rx metoprolol succinate 50 mg 50 mg PO BID #60 tabs 02/09/22 Rx tablet,extended release 24 hr metoprolol tartrate 25 mg tablet 25 mg PO BID #10 tabs 02/09/22 Rx Allergies Allergy/AdvReac Type Severity Reaction Status Date / Time ketorolac Allergy Severe Rash/Severe Verified 01/04/22 10:31 stomach pain NSAIDS (Non-Steroidal Allergy Severe Rash/Severe Verified 01/04/22 10:31 Anti-Inflamma stomach pain tetracycline Allergy Severe Rash Verified 01/04/22 10:31 diltiazem [From Cardizem] AdvReac Palpitation Verified 01/04/22 10:31 s Review of Systems Review of Systems Narrative: all systems reviewed and negative except as otherwise documented in HPI Exam Vital Signs (past 8 hours): - 02/09/22 08:10 Temperature 97.0 F L Pulse Rate 71 Respiratory Rate 16 Blood Pressure 132/72 Pulse Oximetry 98 Oxygen Flow Rate 0 Oxygen Delivery Method Room Air Oxygen Flow Rate 0 Narrative Exam Narrative: alert sitting in bed watching TV Const General: cooperative, healthy appearing, comfortable and well developed [facility] Head: normocephalic and atraumatic Eyes General: appearance normal, both eyes and all related structures Resp Auscultation: clear to auscultation bilaterally Cardio Rate: regular rate Rhythm: regular rhythm Heart Sounds: S1 normal and S2 normal GI Palpation: soft and No tender Auscultation: normal bowel sounds Skin General: no rashes or lesions noted Neuro General: patient alert, patient awake, patient oriented x3 and moves all extremities Extrem General: no pedal edema Psych Speech and Movement: speech and movement normal Objective Labs Result Diagrams: 02/08/22 15:45 02/08/22 15:45 Labs: Laboratory Results - last 24 hr 02/08/22 02/08/22 02/08/22 15:45 15:45 15:45 WBC 6.8 RBC 4.50 Hgb 13.5 Hct 40.1 MCV 89.0 MCH 29.9 MCHC 33.6 RDW 13.8 Plt Count 259 Neut % (Auto) 46.5 L Lymph % (Auto) 37.7 [place] % (Auto) 8.1 Eos % (Auto) 6.9 H Baso % (Auto) 0.8 Neut # (Auto) 3200 Lymph # (Auto) 2600 [place] # (Auto) 600 Eos # (Auto) 500 H Baso # (Auto) 100 PT 11.9 INR 1.0 APTT 33 Sodium 139 Potassium 3.5 Chloride 99 Carbon Dioxide 30 BUN 14 Creatinine 0.59 Estimated GFR > 60 BUN/Creatinine Ratio 23.7 H Glucose 119 H Calcium 8.6 Magnesium 1.7 Total Bilirubin 0.2 AST 26 ALT 37 H Alkaline Phosphatase 102 Total Creatine Kinase 66 CK-MB (CK-2) TNP CK-MB (CK-2) Rel Index TNP Troponin I < 0.012 Total Protein 7.5 Albumin 4.3 Globulin 3.2 Albumin/Globulin Ratio 1.3 Lipase 99 SARS-CoV-2 (PCR) 02/08/22 16:45 WBC RBC Hgb Hct MCV MCH MCHC RDW Plt Count Neut % (Auto) Lymph % (Auto) [place] % (Auto) Eos % (Auto) Baso % (Auto) Neut # (Auto) Lymph # (Auto) [place] # (Auto) Eos # (Auto) Baso # (Auto) PT INR APTT Sodium Potassium Chloride Carbon Dioxide BUN Creatinine Estimated GFR BUN/Creatinine Ratio Glucose Calcium Magnesium Total Bilirubin AST ALT Alkaline Phosphatase Total Creatine Kinase CK-MB (CK-2) CK-MB (CK-2) Rel Index Troponin I Total Protein Albumin Globulin Albumin/Globulin Ratio Lipase SARS-CoV-2 (PCR) Negative Assessment & Plan Assessment & Plan narrative: #Afib with RVR #hx of afib appears to have resolved with initiation of metoprolol will continue with prn IR formulation will resume eliquis likely lifelong at this point will need cardiology f/u as outpt #HTN stable continue home losartan dispo: admit obsv PCP: Aram MDM: poly Time Spent With Patient Critical Care time: I spent a total of [] minutes of critical care time on this patient's care today; this time is exclusive of procedural time.
--- NOTE | 2022-02-09 11:23 | PM.DS.1 ---
History of Present Illness History of Present Illness Date Patient Seen: 02/09/22 Time Patient Seen: 11:30 Date of Onset of Symptoms: 02/08/22 Chief complaint: a-fib 130 heart rate SOB flutter heart Narrative: Feeling much better this morning. appears to be in NSR. ready to go home. Discharge Providers Provider Date of admission: 02/08/22 18:35 Discharge Date: 02/09/22 Primary care physician: Gagan Chiu MD Consults: 02/08/22 18:35 Consult to Physician Urgent Comment: Consulting Provider: Jamie Vasques Reason for consultation: Admission Has provider been notified: Yes Discharge provider: Jamie Vasques MD Summary Hospital Course Discharge Diagnosis: #afib with RVR, recurrent #Hx of RVR #hypertension Hospital Course: PT with past hx of one episode of afib which resolved, not on meds, presented to ED with sudden onset of arrhythmia and malaise out of the blue which she recognized as afib., found to be in Afib with RVR, failed electroversion attempts x2, had recorded dilt reaction on file, ED spoke with cardiology who recommended metopolol XL bid, she was started on that, slept ok last night, this morning she feels much better and seems to be in sinus rhythm. appetite balance breathing etc all normal. Status at Discharge Cognitive/behavioral status at discharge: at baseline, oriented Functional status at discharge: independent ambulation Overall status at discharge: patient is back to baseline Exam Vital Signs (past 8 hours): - 02/09/22 08:10 Temperature 97.0 F L Pulse Rate 71 Respiratory Rate 16 Blood Pressure 132/72 Pulse Oximetry 98 Oxygen Flow Rate 0 Oxygen Delivery Method Room Air Oxygen Flow Rate 0 Narrative Exam Narrative: laying in bed watching TV Const General: cooperative, healthy appearing, comfortable, well developed and well groomed Resp Auscultation: clear to auscultation bilaterally Cardio Rate: regular rate Rhythm: regular rhythm Heart Sounds: S1 normal and S2 normal GI Palpation: soft and No tender Auscultation: normal bowel sounds Skin General: no rashes or lesions noted Neuro General: patient alert, patient awake and patient oriented x3 Extrem General: normal to inspection, full ROM and no pedal edema Psych Mental Status: mental status grossly normal Objective Labs Result Diagrams: 02/08/22 15:45 02/08/22 15:45 Labs: Laboratory Results - last 24 hr 02/08/22 02/08/22 02/08/22 15:45 15:45 15:45 WBC 6.8 RBC 4.50 Hgb 13.5 Hct 40.1 MCV 89.0 MCH 29.9 MCHC 33.6 RDW 13.8 Plt Count 259 Neut % (Auto) 46.5 L Lymph % (Auto) 37.7 [place] % (Auto) 8.1 Eos % (Auto) 6.9 H Baso % (Auto) 0.8 Neut # (Auto) 3200 Lymph # (Auto) 2600 [place] # (Auto) 600 Eos # (Auto) 500 H Baso # (Auto) 100 PT 11.9 INR 1.0 APTT 33 Sodium 139 Potassium 3.5 Chloride 99 Carbon Dioxide 30 BUN 14 Creatinine 0.59 Estimated GFR > 60 BUN/Creatinine Ratio 23.7 H Glucose 119 H Calcium 8.6 Magnesium 1.7 Total Bilirubin 0.2 AST 26 ALT 37 H Alkaline Phosphatase 102 Total Creatine Kinase 66 CK-MB (CK-2) TNP CK-MB (CK-2) Rel Index TNP Troponin I < 0.012 Total Protein 7.5 Albumin 4.3 Globulin 3.2 Albumin/Globulin Ratio 1.3 Lipase 99 SARS-CoV-2 (PCR) 02/08/22 16:45 WBC RBC Hgb Hct MCV MCH MCHC RDW Plt Count Neut % (Auto) Lymph % (Auto) [place] % (Auto) Eos % (Auto) Baso % (Auto) Neut # (Auto) Lymph # (Auto) [place] # (Auto) Eos # (Auto) Baso # (Auto) PT INR APTT Sodium Potassium Chloride Carbon Dioxide BUN Creatinine Estimated GFR BUN/Creatinine Ratio Glucose Calcium Magnesium Total Bilirubin AST ALT Alkaline Phosphatase Total Creatine Kinase CK-MB (CK-2) CK-MB (CK-2) Rel Index Troponin I Total Protein Albumin Globulin Albumin/Globulin Ratio Lipase SARS-CoV-2 (PCR) Negative [facility] Medical History Adverse drug effect Allergies (~1999) Carpal tunnel syndrome (~2013) Chicken pox (~1957) Chronic back pain (~1999) Disease of spine (~1999) Erosive gastritis (~2005) Foot pain (~2013) Fracture (~2020) GERD (gastroesophageal reflux disease) (~2005) Glaucoma (~2018) Headache (~2013) Hypertension (~1999) Irritable bowel syndrome (~2011) Measles (~1958) TOLLIVER (nonalcoholic steatohepatitis) Osteoarthritis (~2011) Osteopenia (~2014) Paroxysmal atrial fibrillation (~2018) Recurrent sinusitis (~2012) Scarlet fever (~1958) Thyroid nodule (~1996) Surgical History Anesthesia History of carpal tunnel surgery (~2014) History of cholecystectomy (~1997) History of lobectomy of thyroid (~1996) History of partial hysterectomy (~1997) History of sinus surgery History of tonsillectomy (~1970) History of tubal ligation (~1986) S/P total hip arthroplasty (~2016) Family History Father Kidney disease Mother History of heart disease Alzheimer's disease Brother No problems noted. Grandfather Cancer Grandmother History of heart disease Alzheimer's disease Grandfather Cancer Grandmother Diabetes mellitus History of heart disease Hypertension Family/Other Bronchial pneumonia Social History household members: spouse Smoking Status: Never smoker Discharge Assessment & Plan Assessment and Plan Assessment: #recurrent afib with new RVR #hx of afib stop coreg start eliquis 5mg 2x/day start metoprolol succinate 50mg 2x/day with PRN metoprolol tartrate 25mg for RVR will need cardiology consult as outpt at PCP f/u reviewed plan with her she repeated it back #HTN continue home losartan Dispo: home to f/u [facility] PCP PCP: Aram MDM: Oleg Discharge Plan Discharge Plan Patient Disposition: Home Discharge orders & Medications Prescriptions: New Eliquis 5 mg tablet 5 mg PO BID Qty: 60 0RF metoprolol succinate 50 mg tablet extended release 24 hr 50 mg PO BID Qty: 60 0RF metoprolol tartrate 25 mg tablet 25 mg PO BID Qty: 10 0RF Continued tramadol 50 mg tablet 50 mg PO TID PRN (Reason: pain) Rx Instructions: Rx to [facility] methocarbamol 750 mg tablet 750 mg PO BID PRN (Reason: Pain, Moderate) fluticasone propionate [Flonase Allergy Relief] 50 mcg/actuation spray,suspension 2 spray intranasal DAILY Rx Instructions: administer into each nostril losartan 25 mg tablet 25 mg PO DAILY Qty: 90 3RF Discontinued carvedilol 25 mg tablet 25 mg PO BID Qty: 180 3RF Rx Instructions: must administer with a meal/food Follow up/Referrals: Gagan Chiu MD [Primary Care Provider] - Visit Report/Discharge Packet Instructions: DI for Atrial Fibrillation, Metoprolol Discharge Data Primary Care Provider: Gagan Chiu Attending Provider: Jamie Vasques
[2022-02-09 11:25] VITALS: BP 158/74; PULSE 75; RESP 18; TEMP 36.7; O2SAT 99
[2022-02-09 11:33] VITALS: BP 158/74; PULSE 73
[2022-02-09] MEDS: METOPROLOL ER 50 MG TABLET PO (11:33)
== END 2022-02-09 11:59 | disposition home or self-care (01) ==
LOC: ED 18:35 → AC 20:43
PROVIDERS: Admitting Provider Family Medicine; Emergency Provider Emergency Medicine; Family Provider Internal Medicine; PCP Internal Medicine; Referring Provider Emergency Medicine; Visit Provider Family Medicine
DX: I48.91 Unspecified atrial fibrillation (principal); I10 Essential (primary) hypertension
CPT/HCPCS: 36415; 71045; 80053; 82550; 83690; 83735; 84484; 85025; 85610; 85730; 87635; 92960; 93005; 96361; 96374; 99152; 99285; 99291; C9803; G0378; J2704; J3010

== ENCOUNTER 2022-03-04 13:24 | Emergency (ER) | payer MEDICARE, OTHER, SELFPAY ==
[2022-02-08 21:14] VITALS: BMI 26.6
[2022-03-04] VITALS (25 sets, daily range): BP systolic 174–225; BP diastolic 68–117; PULSE 66–76; RESP 15–32; TEMP 36.8; O2SAT 94–99; BMI 26.6
--- NOTE | 2022-03-04 13:35 | DI.RAD.S_ITS ---
PROCEDURE: XR CHEST 1V INDICATIONS: chest pain TECHNIQUE: One view of the chest was acquired. COMPARISON: [facility], CR, XR CHEST 1V, 02/08/2022, 15:58. FINDINGS: Surgical changes and devices: None. Lungs and pleura: Lungs are clear. No pleural effusions or pneumothorax. Mediastinum: Mediastinal contours appear normal. Heart size is normal. Bones and chest wall: No suspicious bony lesions. Overlying soft tissues appear unremarkable. IMPRESSION: No acute cardiopulmonary pathology. Dictated by: Leon Yepez M.D. on 03/04/2022 at 14:48 Approved by: Leon Yepez M.D. on 03/04/2022 at 14:48
[2022-03-04 13:52] LABS: Prothrombin Time 11.8 SECONDS (10.1-12.7)
[2022-03-04 13:53] LABS: Add Manual Diff / Slide Review NO; Basophils Absolute Auto 100 /uL (0-100); Basophils Percent Auto 1.2 % (0-2); Eosinophils Absolute Auto 500 /uL (0-450); Eosinophils Percent Auto 5.2 % (2-4); Hematocrit 42.4 % (36-46); Lymphocytes Absolute Auto 3300 /uL (1100-4500); Lymphocytes Percent Auto 36.2 % (25-40); Mean Corpuscular Hemoglobin 29.3 PG (26-34); Mean Corpuscular Volume 88.9 fL (80-100); Monocytes Absolute Auto 600 /uL (0-900); Monocytes Percent Auto 6.7 % (3-14); Neutrophils Absolute Auto 4600 /uL (1500-7000); Neutrophils Percent Auto 50.7 % (50-75); Platelet Count 289 X10^3/uL (150-400); Red Blood Cell Count 4.77 X10^6/uL (4.0-5.2); Red Cell Distribution Width 13.6 % (11.6-14.8); White Blood Cell Count 9.1 X10^3/uL (4.5-11.0)
[2022-03-04 13:54] LABS: PTT Partial Thromboplastin Tim 33 SECONDS (26-36)
[2022-03-04 13:58] LABS: Alanine Aminotransferase 63 IU/L (<35); Albumin 4.5 g/dL (3.5-5.0); Albumin Globulin Ratio 1.3 (1.0-2.8); Alkaline Phosphatase 123 U/L (38-126); Aspartate Aminotransferase 42 IU/L (14-36); BUN Creatinine Ratio 23.9 (6-22); Bilirubin Total 0.4 mg/dL (0.2-1.3); Blood Urea Nitrogen 11 mg/dL (7-17); Calcium 8.6 mg/dL (8.4-10.2); Carbon Dioxide 28 mmol/L (22-32); Chloride 94 mmol/L (98-107); Creatine Kinase 45 U/L (30-135); Estimated Glomerular Filt Rate > 60 mL/min (>60); Globulin 3.6 g/dL (1.7-4.1); Glucose 99 mg/dL (80-110); HEMOLYSIS 30 (0-50); Lipase 141 U/L (23-300); Magnesium 1.8 mg/dL (1.6-2.3); Potassium 3.3 mmol/L (3.4-5.1); Sodium 134 mmol/L (137-145); Total Protein 8.1 g/dL (6.3-8.2)
[2022-03-04 14:10] LABS: Troponin I < 0.012 ng/mL (0.01-0.034)
--- NOTE | 2022-03-04 14:41 | ED.CHESTPAIN ---
HPI - Chest Pain General Chief Complaint: Chest Pain Stated Complaint: chestpain/ sob Time Seen by Provider: 03/04/22 13:46 Source: patient and EMS Mode of arrival: EMS Limitations: no limitations History of Present Illness HPI narrative: Patient is a 71-year-old female history of atrial fibrillation on Eliquis, hypertension, presenting today with generally not feeling well. She says she has not felt well for about a week. She is had cough she is had orthopnea she has some shortness of breath with exertion. She is had generalized body aches and just not feeling well. Today she says that she tell her blood pressure was rising and she did not feel well at all. EMS arrived noted that she had AFib with RVR she then spontaneously converted to sinus rhythm and was having PVCs. She says she still just does not feel quite right she has some chest heaviness not really radiating. She has some shortness of breath mostly she is concerned because of her blood pressure is quite elevated. It is persistently elevated going as high as 225/100. She says not all medications work on her previously they did work on her but now they do not. She has a slight headache as well. She denies any peripheral edema. She is no abdominal pain nausea or vomiting. She is had some mild decreased appetite. Related Data Home Medications Medication Instructions Recorded Confirmed fluticasone propionate 50 2 spray intranasal DAILY 09/21/21 02/22/22 mcg/actuation nasal spray,suspension (Flonase Allergy Relief) methocarbamol 750 mg tablet 750 mg PO BID PRN Pain, Moderate 09/21/21 02/22/22 metoprolol tartrate 25 mg tablet 25 mg PO BID PRN 02/22/22 02/22/22 Previous Rx's Medication Instructions Recorded apixaban 5 mg tablet (Eliquis) 5 mg PO BID #180 tabs 02/22/22 losartan 50 mg tablet 50 mg PO DAILY #90 tabs 02/22/22 metoprolol succinate 50 mg 50 mg PO BID #180 tabs 02/22/22 tablet,extended release 24 hr albuterol sulfate 90 mcg/actuation 2 puff inhalation Q4-6H PRN 03/04/22 aerosol inhaler shortness of breath or wheezing #8.5 grams Allergies Allergy/AdvReac Type Severity Reaction Status Date / Time ketorolac Allergy Severe Rash/Severe Verified 02/22/22 10:31 stomach pain NSAIDS (Non-Steroidal Allergy Severe Rash/Severe Verified 02/22/22 10:31 Anti-Inflamma stomach pain tetracycline Allergy Severe Rash Verified 02/22/22 10:31 diltiazem [From Cardizem] AdvReac Palpitation Verified 02/22/22 10:31 s Review of Systems Review of Systems Narrative: GENERAL: See HPI HEENT: Denies sinus pain, ear pain, sore throat, difficulty swallowing, neck pain RESPIRATORY: See HPI CARDIOVASCULAR: See HPI GASTROINTESTINAL: Denies nausea, vomiting, abdominal pain, diarrhea, constipation, melena. : Denies dysuria, frequency, incontinence, hematuria, urinary retention, flank pain. MUSCULOSKELETAL: Denies weakness, joint pain, or bony pain SKIN: No rash, no erythema, no pruritus NEUROLOGIC: Denies weakness, dizziness, headache, numbness, change in speech, confusion PSYCHIATRIC: No concerning psychosocial issues. 12 point review of systems is negative except for those stated above and HPI Patient History Medical History Adverse drug effect Allergies (~1999) Carpal tunnel syndrome (~2013) Chicken pox (~1957) Chronic back pain (~1999) Disease of spine (~1999) Erosive gastritis (~2005) Foot pain (~2013) Fracture (~2020) GERD (gastroesophageal reflux disease) (~2005) Glaucoma (~2018) Headache (~2013) Hypertension (~1999) Irritable bowel syndrome (~2011) Measles (~1958) TOLLIVER (nonalcoholic steatohepatitis) Osteoarthritis (~2011) Osteopenia (~2014) Paroxysmal atrial fibrillation (~2018) Recurrent sinusitis (~2012) Scarlet fever (~1958) Thyroid nodule (~1996) Surgical History Anesthesia History of carpal tunnel surgery (~2014) History of cholecystectomy (~1997) History of lobectomy of thyroid (~1996) History of partial hysterectomy (~1997) History of sinus surgery History of tonsillectomy (~1970) History of tubal ligation (~1986) S/P total hip arthroplasty (~2016) Family History Father Kidney disease Mother History of heart disease Alzheimer's disease Brother No problems noted. Grandfather Cancer Grandmother History of heart disease Alzheimer's disease Grandfather Cancer Grandmother Diabetes mellitus History of heart disease Hypertension Family/Other Bronchial pneumonia Social History household members: spouse Smoking Status: Never smoker Smoking Status: Never smoker alcohol intake frequency: 0-2 drinks per day Substance Use Type: does not use Exam Initial Vital Signs Initial Vital Signs: Vital Signs Temperature 98.3 F 03/04/22 13:31 Pulse Rate 74 03/04/22 13:31 Respiratory Rate 18 03/04/22 13:31 Blood Pressure 202/91 H 03/04/22 13:31 Pulse Oximetry 98 03/04/22 13:31 Oxygen Delivery Method 03/04/22 13:31 GENERAL: Alert 71-year-old female appears to not feel well HEENT: Head atraumatic,EOMI, pupils reactive, face symmetric, moist mucous membranes CARDIOVASCULAR: Regular rate and rhythm without murmurs, rubs or gallops. RESPIRATORY: Slightly coarse breath sounds bilaterally mild expiratory wheezing ABDOMEN: Soft, nontender. Normoactive bowel sounds all 4 quadrants. No guarding or rebound. EXTREMITIES: Normal range of motion, no clubbing or edema. Neurovascularly intact NEUROLOGICAL: Alert and oriented x4.Normal gait and speech. SKIN: Warm, dry, no laceration, no petechiae, no rashes or lesions. Course Orders Ordered: Discontinued Medications Labetalol HCl (Labetalol 20 Mg/4 Ml Syringe) 10 mg IV NOW ONE; Protocol Stop: 03/04/22 14:42 Last Admin: 03/04/22 14:46 Dose: 10 mg Documented By: DAMARIS Vital Signs Vital signs: Vital Signs - 8 hr 03/04/22 13:31 03/04/22 14:32 03/04/22 14:33 Temperature 98.3 F Pulse Rate 74 66 66 Respiratory Rate 18 27 H 21 Blood Pressure 202/91 H Pulse Oximetry 98 98 96 Oxygen Delivery Method Room Air 03/04/22 14:33 03/04/22 14:51 03/04/22 14:51 Temperature Pulse Rate 67 Respiratory Rate 15 Blood Pressure 225/100 H 223/92 H Pulse Oximetry 99 Oxygen Delivery Method 03/04/22 14:56 03/04/22 14:56 03/04/22 15:00 Temperature Pulse Rate 72 Respiratory Rate 18 Blood Pressure 203/88 H 185/68 H Pulse Oximetry 95 Oxygen Delivery Method 03/04/22 15:00 03/04/22 15:06 03/04/22 15:06 Temperature Pulse Rate 69 68 Respiratory Rate 32 H Blood Pressure 206/100 H Pulse Oximetry 95 96 Oxygen Delivery Method 03/04/22 15:12 03/04/22 15:12 03/04/22 15:15 Temperature Pulse Rate 72 71 Respiratory Rate Blood Pressure 217/97 H Pulse Oximetry 95 95 Oxygen Delivery Method 03/04/22 15:15 03/04/22 15:20 03/04/22 15:20 Temperature Pulse Rate 68 Respiratory Rate Blood Pressure 205/84 H 183/79 H Pulse Oximetry 95 Oxygen Delivery Method 03/04/22 15:25 03/04/22 15:25 03/04/22 15:30 Temperature Pulse Rate 74 68 Respiratory Rate Blood Pressure 209/80 H Pulse Oximetry 95 95 Oxygen Delivery Method 03/04/22 15:31 03/04/22 15:31 03/04/22 15:52 Temperature Pulse Rate 67 76 Respiratory Rate 20 Blood Pressure 186/117 H Pulse Oximetry 96 97 Oxygen Delivery Method 03/04/22 15:52 03/04/22 16:00 03/04/22 16:00 Temperature Pulse Rate 75 Respiratory Rate 26 H Blood Pressure 213/100 H 191/92 H Pulse Oximetry 97 Oxygen Delivery Method 03/04/22 16:20 03/04/22 16:21 03/04/22 16:21 Temperature Pulse Rate 72 71 Respiratory Rate Blood Pressure 190/78 H Pulse Oximetry 96 Oxygen Delivery Method 03/04/22 16:30 03/04/22 16:40 03/04/22 16:40 Temperature Pulse Rate 71 67 Respiratory Rate Blood Pressure 186/79 H Pulse Oximetry 96 94 Oxygen Delivery Method 03/04/22 17:00 03/04/22 17:01 03/04/22 17:01 Temperature Pulse Rate 68 67 Respiratory Rate Blood Pressure 206/82 H Pulse Oximetry 97 96 Oxygen Delivery Method 03/04/22 17:21 03/04/22 17:21 Temperature Pulse Rate 67 Respiratory Rate Blood Pressure 192/79 H Pulse Oximetry 97 Oxygen Delivery Method MDM - Chest Pain Lab Data Result diagrams: 03/04/22 13:30 03/04/22 13:30 Labs: Lab Results 03/04/22 03/04/22 03/04/22 Range/Units 13:30 13:30 13:30 WBC 9.1 (4.5-11.0) X10^3/uL RBC 4.77 (4.0-5.2) X10^6/uL Hgb 14.0 (12.0-16.0) g/dL Hct 42.4 (36-46) % MCV 88.9 (80-100) fL MCH 29.3 (26-34) PG MCHC 33.0 (30-36) % RDW 13.6 (11.6-14.8) % Plt Count 289 (150-400) X10^3/uL Neut % (Auto) 50.7 (50-75) % Lymph % (Auto) 36.2 (25-40) % Bent % (Auto) 6.7 (3-14) % Eos % (Auto) 5.2 H (2-4) % Baso % (Auto) 1.2 (0-2) % Neut # (Auto) 4600 (3047-1368) /uL Lymph # (Auto) 3300 (0407-7659) /uL Bent # (Auto) 600 (0-900) /uL Eos # (Auto) 500 H (0-450) /uL Baso # (Auto) 100 (0-100) /uL PT 11.8 (10.1-12.7) SECONDS INR 1.0 (0.9-1.3) APTT 33 (26-36) SECONDS Sodium 134 L (137-145) mmol/L Potassium 3.3 L (3.4-5.1) mmol/L Chloride 94 L (98-107) mmol/L Carbon Dioxide 28 (22-32) mmol/L BUN 11 (7-17) mg/dL Creatinine 0.46 L (0.52-1.04) mg/dL Estimated GFR > 60 (>60) mL/min BUN/Creatinine Ratio 23.9 H (6-22) Glucose 99 (80-110) mg/dL Calcium 8.6 (8.4-10.2) mg/dL Magnesium 1.8 (1.6-2.3) mg/dL Total Bilirubin 0.4 (0.2-1.3) mg/dL AST 42 H (14-36) IU/L ALT 63 H (<35) IU/L Alkaline Phosphatase 123 (38-126) U/L Total Creatine Kinase 45 (30-135) U/L CK-MB (CK-2) TNP CK-MB (CK-2) Rel Index TNP Troponin I < 0.012 (0.01-0.034) ng/mL NT-Pro-B Natriuret Pep (<125) pg/mL Total Protein 8.1 (6.3-8.2) g/dL Albumin 4.5 (3.5-5.0) g/dL Globulin 3.6 (1.7-4.1) g/dL Albumin/Globulin Ratio 1.3 (1.0-2.8) Lipase 141 (23-300) U/L SARS-CoV-2 (PCR) (Negative) Influenza A (RT-PCR) (NEGATIVE) Influenza B (RT-PCR) (NEGATIVE) RSV (PCR) (Negative) 03/04/22 03/04/22 Range/Units 13:30 13:30 WBC (4.5-11.0) X10^3/uL RBC (4.0-5.2) X10^6/uL Hgb (12.0-16.0) g/dL Hct (36-46) % MCV (80-100) fL MCH (26-34) PG MCHC (30-36) % RDW (11.6-14.8) % Plt Count (150-400) X10^3/uL Neut % (Auto) (50-75) % Lymph % (Auto) (25-40) % Bent % (Auto) (3-14) % Eos % (Auto) (2-4) % Baso % (Auto) (0-2) % Neut # (Auto) (3156-2987) /uL Lymph # (Auto) (8106-0164) /uL Bent # (Auto) (0-900) /uL Eos # (Auto) (0-450) /uL Baso # (Auto) (0-100) /uL PT (10.1-12.7) SECONDS INR (0.9-1.3) APTT (26-36) SECONDS Sodium (137-145) mmol/L Potassium (3.4-5.1) mmol/L Chloride (98-107) mmol/L Carbon Dioxide (22-32) mmol/L BUN (7-17) mg/dL Creatinine (0.52-1.04) mg/dL Estimated GFR (>60) mL/min BUN/Creatinine Ratio (6-22) Glucose (80-110) mg/dL Calcium (8.4-10.2) mg/dL Magnesium (1.6-2.3) mg/dL Total Bilirubin (0.2-1.3) mg/dL AST (14-36) IU/L ALT (<35) IU/L Alkaline Phosphatase (38-126) U/L Total Creatine Kinase (30-135) U/L CK-MB (CK-2) CK-MB (CK-2) Rel Index Troponin I (0.01-0.034) ng/mL NT-Pro-B Natriuret Pep 138 H (<125) pg/mL Total Protein (6.3-8.2) g/dL Albumin (3.5-5.0) g/dL Globulin (1.7-4.1) g/dL Albumin/Globulin Ratio (1.0-2.8) Lipase (23-300) U/L SARS-CoV-2 (PCR) Negative (Negative) Influenza A (RT-PCR) Flu a negative (NEGATIVE) Influenza B (RT-PCR) Flu b negative (NEGATIVE) RSV (PCR) Positive A (Negative) Imaging Data Chest x-ray: Radiologist's Impression: LEANDRO Leiva [id number] XRay Report Signed Patient: Olga Colon MR#: [id number] : 1950 Acct:[id number] Age/Sex: 71 / F Date of Service: 03/04/22 Loc: ED Accession Number: [id number] ?? Procedure: XR chest 1V Ordering Provider: Kellen Ko D.O. PROCEDURE:? XR CHEST 1V ? INDICATIONS:? chest pain ? TECHNIQUE:? One view of the chest was acquired.? ? COMPARISON:? [facility], , XR CHEST 1V, 02/08/2022, 15:58. ? FINDINGS:? ? Surgical changes and devices:? None.? ? Lungs and pleura:? Lungs are clear.? No pleural effusions or pneumothorax.? ? Mediastinum:? Mediastinal contours appear normal.? Heart size is normal.? ? Bones and chest wall:? No suspicious bony lesions.? Overlying soft tissues appear unremarkable.? ? IMPRESSION:? No acute cardiopulmonary pathology. ? ? Dictated by: Leon Yepez M.D. on 03/04/2022 at 14:48 ?? CT scan - chest: Radiologist's Impression: [address] [address] [address] Scan Report Signed Patient: Olga Colon MR#: [id number] : 1950 Acct:[id number] Age/Sex: 71 / F Date of Service: 03/04/22 Loc: ED Accession Number: [id number] ?? Procedure: CT angio chest abdomen pelvis Ordering Provider: Kellen Ko D.O. PROCEDURE:? CT ANGIO CHEST ABDOMEN PELVIS ? INDICATIONS:? htn with chest pain ? TECHNIQUE:? Precontrast 5 mm thick sections acquired from the lung apices to the iliac crests.? After the administration of intravenous contrast, 2.5 mm thick sections again acquired from the lung apices to the iliac crests.? Maximum intensity projection (MIP) oblique sagittal and coronal reformats were then acquired.? For radiation dose reduction, the following was used:? automated exposure control.? ? COMPARISON:? None. ? FINDINGS:? Image quality:? Excellent.? ? AORTA and its attachments:? Normal caliber thoracic and abdominal aorta without aneurysm, dissection, or extravasation.? Classic three-vessel arch anatomy.? Great vessel origins are widely patent.? Celiac, SMA, GAURAV, and bilateral renal arteries are patent.? Patent bilateral common iliac and external iliac arteries. ? CHEST:? Lungs and pleura:? No acute airspace opacities.? No pleural effusions or pneumothorax.? Central and peripheral airways are patent and normal in caliber.? ? Mediastinum:? Heart size is normal.? No pericardial effusion.? No mediastinal or hilar adenopathy by size criteria.? Central pulmonary arteries are normal in size.? Esophagus is normal in caliber.? No hiatal hernias.? ? Bones and chest wall:? No axillary adenopathy by size criteria.? 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 No suspicious bony lesions.? No vertebral body compression fractures.? ? ? ABDOMEN:? Vasculature:? Celiac trunk and mesenteric arteries are patent.? Renal arteries are also patent.? ? Solid organs:? Liver is normal in size and enhancement.? Gallbladder is surgically absent .? Biliary system is non dilated.? Pancreas enhances normally.? Spleen is normal in size and enhancement.? No adrenal nodules.? Both kidneys are normal in size and enhancement, without hydronephrosis.? ? Peritoneum and bowel:? No free fluid or air.? Bowel loops are normal in caliber and wall thickness.? ? Nodes and vessels:? No retroperitoneal or mesenteric adenopathy by size criteria.? Inferior vena cava is normal in morphology.? ? Miscellaneous:? No ventral hernias.? ? ? PELVIS:? Genitourinary:? Bladder wall thickness is normal.? ? Miscellaneous:? No inguinal hernias or adenopathy.? No ventral hernias.? Uterus is surgically absent. ? Bones:? No suspicious bony lesions.? No vertebral body compression fractures.? ? ? IMPRESSION:? ? 1. Unremarkable thoracic and abdominal aorta. ? 2. No evidence of acute process in the chest, abdomen, and pelvis. ? 3.? 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 Recommend nonemergent thyroid ultrasound for further evaluation. ? Dictated by: Umair Langley M.D. on 03/04/2022 at 16:46 ? ? ECG Data Interpretation: Normal sinus rhythm rate 66 VA interval 144 QRS [address] changes no T-wave inversions similar to previous EKG in January 2022 MDM Narrative Medical decision making narrative: Patient has 71-year-old female history of atrial fibrillation and hypertension on Eliquis presenting today with not feeling well. She is had upper respiratory like symptoms for couple of days. She is positive for RSV. There are no signs of sepsis she is not hypotensive tachycardic or febrile. She is not hypoxic no significant work of breathing. She did have AFib with RVR and spontaneously converted into sinus rhythm with EMS. She is now in normal sinus rhythm however her blood pressure remained significantly elevated with some chest pressure and headache. CT angio does not show any dissection. No evidence of congestive heart failure. He is given an albuterol inhaler to help with coughing as needed. At this time there is no indication for admission. Differential diagnosis includes acute coronary syndrome, dissection, hypertensive emergency, sepsis Discharge Plan Departure Patient Disposition: Home Clinical Impression: Hypertension, Respiratory syncytial virus (RSV), Atrial fibrillation Instructions: High Blood Pressure, DI for Respiratory Syncytial Virus -- Adults Activity Restrictions/Additional Instructions: *You have been diagnosed with RSV, hypertension, atrial fibrillation *What to do: At this time he will continue to feel weak. Please hydrate and rest. Monitor your heart rate and blood pressure. Please continue take her blood pressure at least once daily. You will likely need blood pressure medication adjustment. This can be done with her primary care provider *Continue to take medications as directed Albuterol 1-2 puffs every 4 hours if needed for coughing or shortness of breath--> SAFEWAY *Follow up with your primary care provider in 2-3 days or call [phone] *Return to ER if you should have increasing chest pain patient's dizziness lightheadedness or any new, worsening or concerning symptoms Prescriptions: New albuterol sulfate 90 mcg/actuation HFA aerosol inhaler 2 puff INHALATION Q4-6H PRN (Reason: shortness of breath or wheezing) Qty: 8.5 0RF No Action methocarbamol 750 mg tablet 750 mg PO BID PRN (Reason: Pain, Moderate) fluticasone propionate [Flonase Allergy Relief] 50 mcg/actuation spray,suspension 2 spray intranasal DAILY Rx Instructions: administer into each nostril metoprolol tartrate 25 mg tablet 25 mg PO BID PRN losartan 50 mg tablet 50 mg PO DAILY Qty: 90 3RF Eliquis 5 mg tablet 5 mg PO BID Qty: 180 3RF metoprolol succinate 50 mg tablet extended release 24 hr 50 mg PO BID Qty: 180 3RF Referrals: Gagan Chiu MD [Primary Care Provider] - Visit Report Forms: Patient Portal/API
[2022-03-04 14:44] LABS: Influenza A - CEPHEID Flu A NEGATIVE (NEGATIVE); Influenza B - CEPHEID Flu B NEGATIVE (NEGATIVE); Respiratory Syncytial Virus POSITIVE (Negative)
[2022-03-04] MEDS: LABETALOL 20 MG/4 ML SYRINGE 10 MG IV (14:46)
[2022-03-04 14:49] LABS: COVID-19 CEPHEID 4-PLEX PCR Negative (Negative)
--- NOTE | 2022-03-04 15:13 | DI.CT.S_ITS ---
PROCEDURE: CT ANGIO CHEST ABDOMEN PELVIS INDICATIONS: htn with chest pain TECHNIQUE: Precontrast 5 mm thick sections acquired from the lung apices to the iliac crests. After the administration of intravenous contrast, 2.5 mm thick sections again acquired from the lung apices to the iliac crests. Maximum intensity projection (MIP) oblique sagittal and coronal reformats were then acquired. For radiation dose reduction, the following was used: automated exposure control. COMPARISON: None. FINDINGS: Image quality: Excellent. AORTA and its attachments: Normal caliber thoracic and abdominal aorta without aneurysm, dissection, or extravasation. Classic three-vessel arch anatomy. Great vessel origins are widely patent. Celiac, SMA, GAURAV, and bilateral renal arteries are patent. Patent bilateral common iliac and external iliac arteries. CHEST: Lungs and pleura: No acute airspace opacities. No pleural effusions or pneumothorax. Central and peripheral airways are patent and normal in caliber. Mediastinum: Heart size is normal. No pericardial effusion. No mediastinal or hilar adenopathy by size criteria. Central pulmonary arteries are normal in size. Esophagus is normal in caliber. No hiatal hernias. Bones and chest wall: No axillary adenopathy by size criteria. 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 No suspicious bony lesions. No vertebral body compression fractures. ABDOMEN: Vasculature: Celiac trunk and mesenteric arteries are patent. Renal arteries are also patent. Solid organs: Liver is normal in size and enhancement. Gallbladder is surgically absent . Biliary system is non dilated. Pancreas enhances normally. Spleen is normal in size and enhancement. No adrenal nodules. Both kidneys are normal in size and enhancement, without hydronephrosis. Peritoneum and bowel: No free fluid or air. Bowel loops are normal in caliber and wall thickness. Nodes and vessels: No retroperitoneal or mesenteric adenopathy by size criteria. Inferior vena cava is normal in morphology. Miscellaneous: No ventral hernias. PELVIS: Genitourinary: Bladder wall thickness is normal. Miscellaneous: No inguinal hernias or adenopathy. No ventral hernias. Uterus is surgically absent. Bones: No suspicious bony lesions. No vertebral body compression fractures. IMPRESSION: 1. Unremarkable thoracic and abdominal aorta. 2. No evidence of acute process in the chest, abdomen, and pelvis. 3. 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 Recommend nonemergent thyroid ultrasound for further evaluation. Dictated by: Umair Langley M.D. on 03/04/2022 at 16:46 Approved by: Umair Langley M.D. on 03/04/2022 at 16:54
[2022-03-04 15:57] LABS: NT-proBNP (BNP-Adult 18+) 138 pg/mL (<125)
== END 2022-03-04 18:25 | disposition home or self-care (01) ==
PROVIDERS: Emergency Provider Emergency Medicine; Family Provider Internal Medicine; PCP Internal Medicine
DX: J06.9 Acute upper respiratory infection, unspecified (principal); B97.4 Respiratory syncytial virus as the cause of diseases classified elsewhere; I10 Essential (primary) hypertension; I48.91 Unspecified atrial fibrillation
CPT/HCPCS: 0241U; 71045; 71275; 74174; 80053; 82550; 83690; 83735; 83880; 84484; 85025; 85610; 85730; 93005; 96374; 99284; Q9967

== ENCOUNTER → 2022-03-14 09:33 | Outpatient (CLI) | payer MEDICARE, OTHER, SELFPAY ==
[2022-02-08 21:14] VITALS: BMI 26.6
[2022-03-14 11:09] LABS: BUN Creatinine Ratio 24.5 (6-22); Blood Urea Nitrogen 12 mg/dL (7-17); Calcium 8.7 mg/dL (8.4-10.2); Carbon Dioxide 29 mmol/L (22-32); Chloride 94 mmol/L (98-107); Estimated Glomerular Filt Rate > 60 mL/min (>60); Glucose 92 mg/dL (80-110); HEMOLYSIS < 15 (0-50); Magnesium 1.8 mg/dL (1.6-2.3); Potassium 4.4 mmol/L (3.4-5.1); Sodium 131 mmol/L (137-145)
[2022-03-14 11:25] LABS: Free T3, Triiodothyronine Free 3.92 pg/mL (2.77-5.27); Free T4, Direct Thyroxine 1.14 ng/dL (0.78-2.19)
[2022-03-14 11:38] LABS: Thyroid Stimulating Hormone 0.954 uIU/mL (0.47-4.68)
== END ==
PROVIDERS: Family Provider Internal Medicine; PCP Internal Medicine; Referring Provider Internal Medicine; Visit Provider Internal Medicine
DX: E87.6 Hypokalemia (principal); E04.9 Nontoxic goiter, unspecified; I10 Essential (primary) hypertension; I48.0 Paroxysmal atrial fibrillation
CPT/HCPCS: 36415; 80048; 83735; 84439; 84443; 84481

== ENCOUNTER → 2022-05-24 15:27 | Outpatient (CLI) | payer MEDICARE, OTHER, SELFPAY ==
[2022-02-08 21:14] VITALS: BMI 26.6
[2022-05-24 15:53] LABS: Add Manual Diff / Slide Review NO; Basophils Absolute Auto 100 /uL (0-100); Basophils Percent Auto 1.2 % (0-2); Eosinophils Absolute Auto 400 /uL (0-450); Eosinophils Percent Auto 7.1 % (2-4); Hematocrit 38.5 % (36-46); Hemoglobin 12.6 g/dL (12.0-16.0); Lymphocytes Absolute Auto 2300 /uL (1100-4500); Lymphocytes Percent Auto 37.1 % (25-40); Mean Corpuscular HGB Conc 32.7 % (30-36); Mean Corpuscular Hemoglobin 29.5 PG (26-34); Mean Corpuscular Volume 90.3 fL (80-100); Monocytes Absolute Auto 400 /uL (0-900); Monocytes Percent Auto 6.7 % (3-14); Neutrophils Absolute Auto 3000 /uL (1500-7000); Neutrophils Percent Auto 47.9 % (50-75); Platelet Count 302 X10^3/uL (150-400); Red Blood Cell Count 4.26 X10^6/uL (4.0-5.2); Red Cell Distribution Width 14.5 % (11.6-14.8); White Blood Cell Count 6.3 X10^3/uL (4.5-11.0)
[2022-05-24 16:09] LABS: Alanine Aminotransferase 37 IU/L (<35); Albumin 4.4 g/dL (3.5-5.0); Albumin Globulin Ratio 1.3 (1.0-2.8); Alkaline Phosphatase 95 U/L (38-126); Aspartate Aminotransferase 28 IU/L (14-36); BUN Creatinine Ratio 31.4 (6-22); Bilirubin Total 0.3 mg/dL (0.2-1.3); Blood Urea Nitrogen 16 mg/dL (7-17); C-Reactive Protein Quant < 0.5 mg/dL (<1.0); Calcium 8.7 mg/dL (8.4-10.2); Carbon Dioxide 31 mmol/L (22-32); Chloride 95 mmol/L (98-107); Estimated Glomerular Filt Rate > 60 mL/min (>60); Globulin 3.3 g/dL (1.7-4.1); Glucose 96 mg/dL (80-110); HEMOLYSIS < 15 (0-50); Potassium 3.8 mmol/L (3.4-5.1); Sodium 133 mmol/L (137-145); Total Protein 7.7 g/dL (6.3-8.2)
[2022-05-24 16:15] LABS: Erythrocyte Sedimentation Rate 11 MM/HR (0-20)
[2022-05-24 16:53] LABS: TSH w/ Reflex to FT4 2.06 uIU/mL (0.47-4.68)
[2022-05-28 15:57] LABS: ANA Screen, IFA Negative (.)
== END ==
PROVIDERS: Family Provider Internal Medicine; PCP Internal Medicine; Referring Provider Internal Medicine; Visit Provider Internal Medicine
DX: M25.50 Pain in unspecified joint (principal); M19.90 Unspecified osteoarthritis, unspecified site
CPT/HCPCS: 36415; 80053; 84443; 85025; 85651; 86038; 86140

== ENCOUNTER 2022-10-03 00:29 | Emergency (ER) | payer MEDICARE, OTHER, SELFPAY ==
[2022-02-08 21:14] VITALS: BMI 26.6
[2022-10-03] VITALS (18 sets, daily range): BP systolic 139–228; BP diastolic 55–101; PULSE 65–99; RESP 10–24; TEMP 36.8–36.9; O2SAT 97–100; BMI 28.2
--- NOTE | 2022-10-03 00:46 | DI.RAD.S_ITS ---
PROCEDURE: XR CHEST 1V INDICATIONS: Chest pain TECHNIQUE: One view of the chest was acquired. COMPARISON: [facility], CR, XR CHEST 1V, 03/04/2022, 13:38. FINDINGS: Surgical changes and devices: None. Lungs and pleura: No acute consolidation. There is a right infrahilar nodular opacity measuring up to 0.8 cm. No pleural effusions or pneumothorax. Mediastinum: Mediastinal contours appear normal. Heart size is normal. Bones and chest wall: No suspicious bony lesions. Overlying soft tissues appear unremarkable. IMPRESSION: 1. No acute consolidation. 2. Right infrahilar nodular opacity. Although this may represent confluence of vascular and bony structures, a pulmonary nodule is not excluded. Recommend PA and lateral study when clinically feasible. Dictated by: Hermilo Byrd M.D. on 10/03/2022 at 1:30 Approved by: Hermilo Byrd M.D. on 10/03/2022 at 1:32
[2022-10-03 01:00] LABS: HEMOLYSIS < 15 (0-50)
--- NOTE | 2022-10-03 01:04 | ED_ITS ---
HPI - Chest Pain General Chief Complaint: Chest Pain Stated Complaint: chest pain. hbp Time Seen by Provider: 10/03/22 00:45 Source: patient and family Mode of arrival: Ambulatory Limitations: no limitations History of Present Illness HPI narrative: 71-year-old female who has a history of atrial fibrillation. Is anticoagulated for this. Also has a history of high blood pressure. States that last evening she is generally started to not feel very well. No headache. No vomiting. No specific chest pain but is having some heaviness in her chest. No shortness of breath. No fevers. She thought that potentially she was in atrial fibrillation she does have occasional episodes where she feels like her heart is irregular. She also took her blood pressure at home and it was elevated. She has taken all of her medications. Related Data Home Medications Medication Instructions Recorded Confirmed fluticasone propionate 50 2 spray intranasal DAILY 09/21/21 05/24/22 mcg/actuation nasal spray,suspension (Flonase Allergy Relief) carvedilol 25 mg tablet 25 mg PO BID 03/14/22 05/24/22 flecainide 50 mg tablet 50 mg PO BID 03/14/22 05/24/22 losartan 25 mg tablet 25 mg PO DAILY 03/14/22 05/24/22 Previous Rx's Medication Instructions Recorded apixaban 5 mg tablet (Eliquis) 5 mg PO BID #180 tabs 02/22/22 losartan 100 mg tablet 100 mg PO DAILY #90 tabs 05/24/22 Allergies Allergy/AdvReac Type Severity Reaction Status Date / Time ketorolac Allergy Severe Rash/Severe Verified 05/24/22 14:48 stomach pain NSAIDS (Non-Steroidal Allergy Severe Rash/Severe Verified 05/24/22 14:48 Anti-Inflamma stomach pain tetracycline Allergy Severe Rash Verified 05/24/22 14:48 chlorthalidone AdvReac Intermediate hypokalemia Verified 05/24/22 15:16 diltiazem [From Cardizem] AdvReac Palpitation Verified 05/24/22 14:48 s Review of Systems Review of Systems ROS Unobtainable: All systems reviewed & are unremarkable except as noted in HPI and below Patient History Medical History Adverse drug effect Allergies (~1999) Carpal tunnel syndrome (~2013) Cataracts, bilateral Chicken pox (~1958) Chronic back pain (~1999) Disease of spine (~1999) Erosive gastritis (~2005) Foot pain (~2013) Fracture (~2020) GERD (gastroesophageal reflux disease) (~2005) Headache (~2013) Hypertension (~1999) Irritable bowel syndrome (~2011) Measles (~1958) TOLLIVER (nonalcoholic steatohepatitis) Osteoarthritis (~2011) Osteopenia (~2014) Paroxysmal atrial fibrillation (~2018) Recurrent sinusitis (~2012) Scarlet fever (~1958) Thyroid nodule (~1996) Surgical History Anesthesia History of carpal tunnel surgery (~2014) History of cholecystectomy (~1997) History of lobectomy of thyroid (~1996) History of partial hysterectomy (~1997) History of sinus surgery History of tonsillectomy (~1970) History of tubal ligation (~1986) S/P total hip arthroplasty (~2016) Family History Father Kidney disease Mother History of heart disease Alzheimer's disease Brother No problems noted. Grandfather Cancer Grandmother History of heart disease Alzheimer's disease Grandfather Cancer Grandmother Diabetes mellitus History of heart disease Hypertension Family/Other Bronchial pneumonia Social History household members: spouse Smoking Status: Never smoker Smoking Status: Never smoker alcohol intake frequency: 0-2 drinks per day Substance Use Type: does not use Exam Initial Vital Signs Initial Vital Signs: Vital Signs Temperature 98.5 F 10/03/22 00:30 Pulse Rate 77 10/03/22 00:30 Respiratory Rate 24 10/03/22 00:30 Blood Pressure 215/97 H 10/03/22 00:30 Pulse Oximetry 100 10/03/22 00:30 Oxygen Delivery Method Room Air 10/03/22 00:30 Const General: cooperative, comfortable and No ill appearing HENMT Head: normal to inspection and normocephalic Resp Effort & Inspection: normal respiratory effort Auscultation: clear to auscultation bilaterally Cardio Rate: regular rate Rhythm: regular rhythm GI Inspection: normal to inspection and non-distended Palpation: soft Neuro General: patient alert, patient awake and moves all extremities Extrem General: normal to inspection and capillary refill normal Course Orders Ordered: ED Orders 10/03/22 00:40 Complete Blood Count AUTO DIFF Stat Comprehensive Metabolic Panel Stat Lipase Stat Magnesium Stat Troponin & CK Cardiac Panel Stat 10/03/22 00:46 XR chest 1V Stat EKG-12 Lead Stat 10/03/22 01:34 Covid-19 + FLU A/B + RSV - PCR Stat 10/03/22 03:50 Troponin & CK Cardiac Panel Stat Discontinued Medications Hydralazine HCl (Hydralazine 20 Mg/Ml Vial) 10 mg IV NOW ONE Stop: 10/03/22 02:59 Last Admin: 10/03/22 03:11 Dose: 10 mg Documented By: CIARAN Lorazepam (Lorazepam 2 Mg/Ml Inj) 1 mg IV NOW ONE Stop: 10/03/22 03:55 Last Admin: 10/03/22 04:01 Dose: 1 mg Documented By: CIARAN Vital Signs Vital signs: Vital Signs - 8 hr 10/03/22 00:30 10/03/22 00:37 10/03/22 00:37 Temperature 98.5 F Pulse Rate 77 81 Respiratory Rate 24 20 Blood Pressure 215/97 H 215/97 H Pulse Oximetry 100 100 Oxygen Delivery Method Room Air 10/03/22 00:45 10/03/22 00:45 10/03/22 01:00 Temperature Pulse Rate 76 74 Respiratory Rate 20 24 Blood Pressure 191/81 H Pulse Oximetry 100 100 Oxygen Delivery Method Room Air 10/03/22 01:01 10/03/22 01:01 10/03/22 01:30 Temperature Pulse Rate 73 Respiratory Rate 18 Blood Pressure 193/91 H 189/87 H Pulse Oximetry 100 Oxygen Delivery Method 10/03/22 01:30 10/03/22 02:00 10/03/22 02:00 Temperature Pulse Rate 65 66 Respiratory Rate 11 L 11 L Blood Pressure 200/91 H Pulse Oximetry 97 97 Oxygen Delivery Method 10/03/22 02:30 10/03/22 02:30 10/03/22 02:57 Temperature Pulse Rate 70 Respiratory Rate 14 Blood Pressure 228/99 H 223/101 H Pulse Oximetry 99 Oxygen Delivery Method 10/03/22 02:57 10/03/22 03:00 10/03/22 03:00 Temperature Pulse Rate 74 69 Respiratory Rate 18 10 L Blood Pressure 210/96 H Pulse Oximetry 99 98 Oxygen Delivery Method 10/03/22 03:11 10/03/22 03:19 10/03/22 03:19 Temperature Pulse Rate 75 81 Respiratory Rate 19 Blood Pressure 210/96 H 195/81 H Pulse Oximetry 98 Oxygen Delivery Method 10/03/22 03:30 10/03/22 03:31 10/03/22 03:31 Temperature Pulse Rate 82 83 Respiratory Rate 12 18 Blood Pressure 155/65 H Pulse Oximetry 97 98 Oxygen Delivery Method Room Air 10/03/22 03:45 10/03/22 03:45 10/03/22 04:00 Temperature Pulse Rate 87 Respiratory Rate 15 Blood Pressure 173/70 H 154/68 H Pulse Oximetry 97 Oxygen Delivery Method 10/03/22 04:00 10/03/22 04:03 Temperature Pulse Rate 94 H 90 Respiratory Rate 15 Blood Pressure 154/68 H Pulse Oximetry 98 Oxygen Delivery Method MDM - Chest Pain Lab Data Attestation: I reviewed the patient's lab results. 10/03/22 00:40 10/03/22 00:40 Labs: Lab Results 10/03/22 10/03/22 10/03/22 Range/Units 00:40 00:40 01:34 WBC 8.1 (4.5-11.0) X10^3/uL RBC 4.19 (4.0-5.2) X10^6/uL Hgb 12.6 (12.0-16.0) g/dL Hct 37.1 (36-46) % MCV 88.6 (80-100) fL MCH 30.0 (26-34) PG MCHC 33.9 (30-36) % RDW 14.0 (11.6-14.8) % Plt Count 297 (150-400) X10^3/uL Neut % (Auto) 41.5 L (50-75) % Lymph % (Auto) 39.6 (25-40) % [place] % (Auto) 7.2 (3-14) % Eos % (Auto) 10.3 H (2-4) % Baso % (Auto) 1.4 (0-2) % Neut # (Auto) 3400 (3327-1656) /uL Lymph # (Auto) 3200 (7280-6236) /uL [place] # (Auto) 600 (0-900) /uL Eos # (Auto) 800 H (0-450) /uL Baso # (Auto) 100 (0-100) /uL Sodium 131 L (137-145) mmol/L Potassium 3.8 (3.4-5.1) mmol/L Chloride 95 L (98-107) mmol/L Carbon Dioxide 29 (22-32) mmol/L BUN 15 (7-17) mg/dL Creatinine 0.60 (0.52-1.04) mg/dL Estimated GFR > 60 (>60) mL/min BUN/Creatinine Ratio 25.0 H (6-22) Glucose 102 (80-110) mg/dL Calcium 8.7 (8.4-10.2) mg/dL Magnesium 1.9 (1.6-2.3) mg/dL Total Bilirubin 0.4 (0.2-1.3) mg/dL AST 23 (14-36) IU/L ALT 31 (<35) IU/L Alkaline Phosphatase 79 (38-126) U/L Total Creatine Kinase 56 (30-135) U/L Troponin I < 0.012 (0.01-0.034) ng/mL Total Protein 7.4 (6.3-8.2) g/dL Albumin 4.2 (3.5-5.0) g/dL Globulin 3.2 (1.7-4.1) g/dL Albumin/Globulin Ratio 1.3 (1.0-2.8) Lipase 105 (23-300) U/L SARS-CoV-2 (PCR) Negative (Negative) Influenza A (RT-PCR) Flu a negative (NEGATIVE) Influenza B (RT-PCR) Flu b negative (NEGATIVE) RSV (PCR) Negative (Negative) 10/03/22 Range/Units 03:50 WBC (4.5-11.0) X10^3/uL RBC (4.0-5.2) X10^6/uL Hgb (12.0-16.0) g/dL Hct (36-46) % MCV (80-100) fL MCH (26-34) PG MCHC (30-36) % RDW (11.6-14.8) % Plt Count (150-400) X10^3/uL Neut % (Auto) (50-75) % Lymph % (Auto) (25-40) % [place] % (Auto) (3-14) % Eos % (Auto) (2-4) % Baso % (Auto) (0-2) % Neut # (Auto) (8797-0026) /uL Lymph # (Auto) (5651-7960) /uL [place] # (Auto) (0-900) /uL Eos # (Auto) (0-450) /uL Baso # (Auto) (0-100) /uL Sodium (137-145) mmol/L Potassium (3.4-5.1) mmol/L Chloride (98-107) mmol/L Carbon Dioxide (22-32) mmol/L BUN (7-17) mg/dL Creatinine (0.52-1.04) mg/dL Estimated GFR (>60) mL/min BUN/Creatinine Ratio (6-22) Glucose (80-110) mg/dL Calcium (8.4-10.2) mg/dL Magnesium (1.6-2.3) mg/dL Total Bilirubin (0.2-1.3) mg/dL AST (14-36) IU/L ALT (<35) IU/L Alkaline Phosphatase (38-126) U/L Total Creatine Kinase 56 (30-135) U/L Troponin I < 0.012 (0.01-0.034) ng/mL Total Protein (6.3-8.2) g/dL Albumin (3.5-5.0) g/dL Globulin (1.7-4.1) g/dL Albumin/Globulin Ratio (1.0-2.8) Lipase (23-300) U/L SARS-CoV-2 (PCR) (Negative) Influenza A (RT-PCR) (NEGATIVE) Influenza B (RT-PCR) (NEGATIVE) RSV (PCR) (Negative) Imaging Data Chest x-ray: Radiologist's Impression: PROCEDURE:? XR CHEST 1V ? INDICATIONS:? Chest pain ? TECHNIQUE:? One view of the chest was acquired.? ? COMPARISON:? [facility], , XR CHEST 1V, 03/04/2022, 13:38. ? FINDINGS:? ? Surgical changes and devices:? None.? ? Lungs and pleura:? No acute consolidation.? There is a right infrahilar nodular opacity measuring up to 0.8 cm. No pleural effusions or pneumothorax.? ? Mediastinum:? Mediastinal contours appear normal.? Heart size is normal.? ? Bones and chest wall:? No suspicious bony lesions.? Overlying soft tissues appear unremarkable.? ? IMPRESSION:? ? 1. No acute consolidation. ? 2. Right infrahilar nodular opacity.? Although this may represent confluence of vascular and bony structures, a pulmonary nodule is not excluded.? Recommend PA and lateral study when clinically feasible ECG Data Attestation: I personally reviewed and interpreted this ECG as follows: Interpretation: Sinus rhythm Ventricular rate 80 Occasional PVC Normal axis No ST T wave changes MDM Narrative Medical decision making narrative: Patient has had 2- troponins. Unremarkable chest x-ray. Has been hypertensive but flow suspicion for ACS, TIA, acute kidney injury. She is not in overt heart failure. Low suspicion for CVA or intracranial bleed. Her blood pressure did improve with a dose of hydralazine and also Ativan. States she feels much better specifically after the Ativan. Had a long discussion with her regarding her presentation today. We discussed blood pressure. We discussed how she should be taking her blood pressure at home. She is not in atrial fibrillation. Patient is comfortable being discharged. She was given return precautions. She expressed understanding and agreement. Discharge Plan Departure Patient Disposition: Home Clinical Impression: Hypertension Instructions: High Blood Pressure Activity Restrictions/Additional Instructions: Continue to take all of your medications as directed. Take your blood pressure at home like we discussed. Contact your primary doctor for follow-up. Return to the emergency department for new or worsening symptoms. Prescriptions: No Action fluticasone propionate [Flonase Allergy Relief] 50 mcg/actuation spray,s uspension 2 spray intranasal DAILY Rx Instructions: administer into each nostril Eliquis 5 mg tablet 5 mg PO BID Qty: 180 3RF carvedilol 25 mg tablet 25 mg PO BID flecainide 50 mg tablet 50 mg PO BID Patient Comments: TAKE ONE TABLET BY MOUTH TWICE DAILY losartan 25 mg tablet 25 mg PO DAILY losartan 100 mg tablet 100 mg PO DAILY Qty: 90 3RF Referrals: Gagan Chiu MD [Primary Care Provider] - Stand Alone Forms: Patient Portal/API
[2022-10-03 01:05] LABS: Alanine Aminotransferase 31 IU/L (<35); Albumin 4.2 g/dL (3.5-5.0); Albumin Globulin Ratio 1.3 (1.0-2.8); Alkaline Phosphatase 79 U/L (38-126); Aspartate Aminotransferase 23 IU/L (14-36); Bilirubin Total 0.4 mg/dL (0.2-1.3); Blood Urea Nitrogen 15 mg/dL (7-17); Calcium 8.7 mg/dL (8.4-10.2); Carbon Dioxide 29 mmol/L (22-32); Chloride 95 mmol/L (98-107); Creatine Kinase 56 U/L (30-135); Estimated Glomerular Filt Rate > 60 mL/min (>60); Globulin 3.2 g/dL (1.7-4.1); Glucose 102 mg/dL (80-110); Lipase 105 U/L (23-300); Magnesium 1.9 mg/dL (1.6-2.3); Potassium 3.8 mmol/L (3.4-5.1); Sodium 131 mmol/L (137-145); Total Protein 7.4 g/dL (6.3-8.2)
[2022-10-03 01:08] LABS: Add Manual Diff / Slide Review NO; Basophils Absolute Auto 100 /uL (0-100); Basophils Percent Auto 1.4 % (0-2); Eosinophils Absolute Auto 800 /uL (0-450); Eosinophils Percent Auto 10.3 % (2-4); Hematocrit 37.1 % (36-46); Hemoglobin 12.6 g/dL (12.0-16.0); Lymphocytes Absolute Auto 3200 /uL (1100-4500); Lymphocytes Percent Auto 39.6 % (25-40); Mean Corpuscular HGB Conc 33.9 % (30-36); Mean Corpuscular Volume 88.6 fL (80-100); Monocytes Absolute Auto 600 /uL (0-900); Monocytes Percent Auto 7.2 % (3-14); Neutrophils Absolute Auto 3400 /uL (1500-7000); Neutrophils Percent Auto 41.5 % (50-75); Platelet Count 297 X10^3/uL (150-400); Red Blood Cell Count 4.19 X10^6/uL (4.0-5.2); White Blood Cell Count 8.1 X10^3/uL (4.5-11.0)
[2022-10-03 02:20] LABS: COVID-19 CEPHEID 4-PLEX PCR Negative (Negative); Influenza A - CEPHEID Flu A NEGATIVE (NEGATIVE); Influenza B - CEPHEID Flu B NEGATIVE (NEGATIVE); Respiratory Syncytial Virus Negative (Negative)
[2022-10-03 02:44] LABS: Troponin I < 0.012 ng/mL (0.01-0.034)
[2022-10-03] MEDS: HYDRALAZINE 20 MG/ML VIAL 10 MG IV (03:11)
[2022-10-03] MEDS: LORazepam 2 MG/ML INJ 1 MG IV (04:01)
[2022-10-03 04:09] LABS: Creatine Kinase 56 U/L (30-135)
[2022-10-03 04:22] LABS: Troponin I < 0.012 ng/mL (0.01-0.034)
== END 2022-10-03 05:02 | disposition home or self-care (01) ==
PROVIDERS: Emergency Provider Emergency Medicine; Family Provider Internal Medicine; PCP Internal Medicine
DX: I10 Essential (primary) hypertension (principal); R07.9 Chest pain, unspecified; Z79.01 Long term (current) use of anticoagulants; Z20.822 Contact with and (suspected) exposure to COVID-19
CPT/HCPCS: 0241U; 36415; 71045; 80053; 82550; 83690; 83735; 84484; 85025; 93005; 96374; 96375; 99284; J0360; J2060

== ENCOUNTER → 2022-12-05 10:20 | Outpatient (CLI) | payer MEDICARE, OTHER, SELFPAY ==
[2022-02-08 21:14] VITALS: BMI 26.6
[2022-12-10 00:36] LABS: Normetanephrine Total 233 ug/24 hr (131-612); Urine, Metanephrine 71 ug/L (Undefined); Urine, Normetanephrine 179 ug/L (Undefined)
[2022-12-11 19:58] LABS: Aldosterone/Renin Activity Rat 4.5 (0.0-30.0); Plama Renin, LC/MS/MS 0.264 ng/mL/hr (0.167-5.380)
== END ==
PROVIDERS: Family Provider Internal Medicine; PCP Internal Medicine; Referring Provider Nurse Practitioner; Visit Provider Nurse Practitioner
DX: I15.8 Other secondary hypertension (principal)
CPT/HCPCS: 36415; 82088; 83835; 84244

== ENCOUNTER 2022-12-08 12:54 | Emergency (ER) | payer MEDICARE, OTHER, SELFPAY ==
[2022-02-08 21:14] VITALS: BMI 26.6
[2022-12-08] VITALS (16 sets, daily range): BP systolic 145–226; BP diastolic 56–102; PULSE 63–82; RESP 12–28; TEMP 36.9; O2SAT 96–100; BMI 28.2
--- NOTE | 2022-12-08 13:25 | DI.RAD.S_ITS ---
PROCEDURE: XR CHEST 1V INDICATIONS: chest pain TECHNIQUE: One view of the chest was acquired. COMPARISON: Merged With [facility], CR, XR CHEST 1V, 10/03/2022, 0:54. Merged With [facility], CR, XR CHEST 1V, 03/04/2022, 13:38. FINDINGS: Surgical changes and devices: None. Lungs and pleura: Lungs are clear. No pleural effusions or pneumothorax. Mediastinum: Mediastinal contours appear normal. Heart size is normal. Bones and chest wall: No suspicious bony lesions. Overlying soft tissues appear unremarkable. IMPRESSION: Portable chest within normal limits for age. Dictated by: Sean Alcocer M.D. on 12/08/2022 at 14:21 Approved by: Sean Alcocer M.D. on 12/08/2022 at 14:21
--- NOTE | 2022-12-08 13:40 | ED_ITS ---
HPI - General Adult General Chief complaint: Hypertension Stated complaint: High BP Time Seen by Provider: 12/08/22 13:29 Source: patient Mode of arrival: Ambulatory History of Present Illness HPI narrative: Patient is a 72 year old female. Has a history of high blood pressure. Has been seen here in the emergency department in the past for this. She is on multiple blood pressure medicines. She recently had a renal ultrasound which s howed 60% bilateral stenosis. She was recently started on hydrochlorothiazide but has not started it because it was sent to a mail order pharmacy and not a local pharmacy. She took her blood pressure earlier today because she just generally was not feeling very well and it was elevated. She denies chest pain but occasionally gets some palpitations. No headache. No nausea or vomiting. She has taken all of her blood pressure medicines as directed. Related Data Home Medications Medication Instructions Recorded Confirmed fluticasone propionate 50 2 spray intranasal DAILY 09/21/21 05/24/22 mcg/actuation nasal spray,suspension (Flonase Allergy Relief) carvedilol 25 mg tablet 25 mg PO BID 03/14/22 05/24/22 flecainide 50 mg tablet 50 mg PO BID 03/14/22 05/24/22 losartan 25 mg tablet 25 mg PO DAILY 03/14/22 05/24/22 Previous Rx's Medication Instructions Recorded apixaban 5 mg tablet (Eliquis) 5 mg PO BID #180 tabs 02/22/22 losartan 100 mg tablet 100 mg PO DAILY #90 tabs 05/24/22 hydralazine 10 mg tablet 10 mg PO .once PRN hypertension 12/08/22 #20 tabs lorazepam 1 mg tablet (Ativan) 1 mg PO BID PRN anxiety #14 tabs 12/08/22 Allergies Allergy/AdvReac Type Severity Reaction Status Date / Time ketorolac Allergy Severe Rash/Severe Verified 12/08/22 13:12 stomach pain NSAIDS (Non-Steroidal Allergy Severe Rash/Severe Verified 12/08/22 13:12 Anti-Inflamma stomach pain tetracycline Allergy Severe Rash Verified 12/08/22 13:12 chlorthalidone AdvReac Intermediate hypokalemia Verified 12/08/22 13:12 diltiazem [From Cardizem] AdvReac Palpitation Verified 12/08/22 13:12 s Review of Systems Review of Systems ROS Unobtainable: All systems reviewed & are unremarkable except as noted in HPI and below Patient History Medical History Adverse drug effect Allergies (~1999) Carpal tunnel syndrome (~2013) Cataracts, bilateral Chicken pox (~1957) Chronic back pain (~1999) Disease of spine (~1999) Erosive gastritis (~2005) Foot pain (~2013) Fracture (~2020) GERD (gastroesophageal reflux disease) (~2005) Headache (~2013) Hypertension (~1999) Irritable bowel syndrome (~2011) Measles (~1958) TOLLIVER (nonalcoholic steatohepatitis) Osteoarthritis (~2011) Osteopenia (~2014) Paroxysmal atrial fibrillation (~2018) Recurrent sinusitis (~2012) Scarlet fever (~1958) Thyroid nodule (~1996) Surgical History Anesthesia History of carpal tunnel surgery (~2014) History of cholecystectomy (~1997) History of lobectomy of thyroid (~1996) History of partial hysterectomy (~1997) History of sinus surgery History of tonsillectomy (~1970) History of tubal ligation (~1986) S/P total hip arthroplasty (~2016) Family History Father Kidney disease Mother History of heart disease Alzheimer's disease Brother No problems noted. Grandfather Cancer Grandmother History of heart disease Alzheimer's disease Grandfather Cancer Grandmother Diabetes mellitus History of heart disease Hypertension Family/Other Bronchial pneumonia Social History household members: spouse Smoking Status: Never smoker Smoking Status: Never smoker alcohol intake frequency: 0-2 drinks per day Substance Use Type: does not use Exam Initial Vital Signs Initial Vital Signs: Vital Signs Temperature 98.5 F 12/08/22 13:12 Pulse Rate 69 12/08/22 13:12 Respiratory Rate 18 12/08/22 13:12 Blood Pressure 185/87 H 12/08/22 13:12 Pulse Oximetry 100 12/08/22 13:12 Oxygen Delivery Method Room Air 12/08/22 13:12 Const General: cooperative, comfortable and No ill appearing HENMT Head: normal to inspection Resp Effort & Inspection: normal respiratory effort Auscultation: clear to auscultation bilaterally Cardio Rate: regular rate Rhythm: regular rhythm GI Inspection: normal to inspection and non-distended Palpation: soft Skin General: no rashes or lesions noted Neuro General: patient alert, patient awake, patient oriented x3 and moves all extremities Extrem General: normal to inspection and capillary refill normal Course Orders Ordered: ED Orders 12/08/22 13:24 Complete Blood Count AUTO DIFF Stat Comprehensive Metabolic Panel Stat Lipase Stat Magnesium Stat PTT Partial Thromboplastin Gene Stat Prothrombin Time INR Stat Troponin & CK Cardiac Panel Stat 12/08/22 13:25 XR chest 1V Stat EKG-12 Lead Stat Hydralazine HCl (Hydralazine 20 Mg/Ml Vial) 10 mg IV Q6HR PRN PRN Reason: Hypertension Last Admin: 12/08/22 13:53 Dose: 10 mg Documented By: DAJA Discontinued Medications Lorazepam (Lorazepam 2 Mg/Ml Inj) 1 mg IV NOW ONE Stop: 12/08/22 13:44 Last Admin: 12/08/22 14:01 Dose: 1 mg Documented By: DAJA Vital Signs Vital signs: Vital Signs - 8 hr 12/08/22 13:12 12/08/22 13:53 12/08/22 13:19 Temperature 98.5 F Pulse Rate 69 63 82 Respiratory Rate 18 18 Blood Pressure 185/87 H 198/75 H Pulse Oximetry 100 Oxygen Delivery Method Room Air 12/08/22 13:20 12/08/22 13:20 12/08/22 13:30 Temperature Pulse Rate 80 Respiratory Rate 23 Blood Pressure 226/102 H 214/86 H Pulse Oximetry 100 Oxygen Delivery Method 12/08/22 13:30 12/08/22 13:46 12/08/22 13:46 Temperature Pulse Rate 75 66 Respiratory Rate 17 28 H Blood Pressure 198/75 H Pulse Oximetry 100 100 Oxygen Delivery Method 12/08/22 14:00 12/08/22 14:00 12/08/22 14:08 Temperature Pulse Rate 64 75 Respiratory Rate 18 20 Blood Pressure 184/74 H Pulse Oximetry 98 97 Oxygen Delivery Method 12/08/22 14:08 12/08/22 14:15 12/08/22 14:15 Temperature Pulse Rate 75 Respiratory Rate 24 Blood Pressure 172/74 H 151/68 H Pulse Oximetry 96 Oxygen Delivery Method 12/08/22 14:30 12/08/22 14:30 12/08/22 14:45 Temperature Pulse Rate 76 79 Respiratory Rate 26 H 20 Blood Pressure 152/64 H Pulse Oximetry 98 98 Oxygen Delivery Method Room Air 12/08/22 14:45 12/08/22 14:55 12/08/22 14:55 Temperature Pulse Rate 79 Respiratory Rate 16 Blood Pressure 145/56 H 167/72 H Pulse Oximetry 97 Oxygen Delivery Method 12/08/22 15:00 12/08/22 15:02 Temperature Pulse Rate 81 79 Respiratory Rate 22 Blood Pressure 173/78 H Pulse Oximetry 97 Oxygen Delivery Method Room Air Medical Decision Making Medical Records Medical records reviewed: Yes I reviewed the patient's medical records. Lab Data Lab results reviewed: Yes I reviewed the patient's lab results. 12/08/22 13:24 12/08/22 13:24 Labs: Lab Results 12/08/22 12/08/22 12/08/22 Range/Units 13:24 13:24 13:24 WBC 7.7 (4.5-11.0) X10^3/uL RBC 4.38 (4.0-5.2) X10^6/uL Hgb 13.2 (12.0-16.0) g/dL Hct 39.1 (36-46) % MCV 89.2 (80-100) fL MCH 30.1 (26-34) PG MCHC 33.7 (30-36) % RDW 14.1 (11.6-14.8) % Plt Count 320 (150-400) X10^3/uL Neut % (Auto) 47.9 L (50-75) % Lymph % (Auto) 36.4 (25-40) % [place] % (Auto) 7.3 (3-14) % Eos % (Auto) 8.1 H (2-4) % Baso % (Auto) 0.3 (0-2) % Neut # (Auto) 3700 (3966-4696) /uL Lymph # (Auto) 2800 (4895-1269) /uL [place] # (Auto) 600 (0-900) /uL Eos # (Auto) 600 H (0-450) /uL Baso # (Auto) 0 (0-100) /uL PT 14.0 H (10.1-12.7) SECONDS INR 1.2 (0.9-1.3) APTT 39 H (26-36) SECONDS Sodium 133 L (137-145) mmol/L Potassium 3.6 (3.4-5.1) mmol/L Chloride 97 L (98-107) mmol/L Carbon Dioxide 29 (22-32) mmol/L BUN 10 (7-17) mg/dL Creatinine 0.60 (0.52-1.04) mg/dL Estimated GFR > 60 (>60) mL/min BUN/Creatinine Ratio 16.7 (6-22) Glucose 103 (80-110) mg/dL Calcium 9.3 (8.4-10.2) mg/dL Magnesium 1.9 (1.6-2.3) mg/dL Total Bilirubin 0.3 (0.2-1.3) mg/dL AST 24 (14-36) IU/L ALT 28 (<35) IU/L Alkaline Phosphatase 78 (38-126) U/L Total Creatine Kinase 52 (30-135) U/L Troponin I < 0.012 (0.01-0.034) ng/mL Total Protein 7.4 (6.3-8.2) g/dL Albumin 4.3 (3.5-5.0) g/dL Globulin 3.1 (1.7-4.1) g/dL Albumin/Globulin Ratio 1.4 (1.0-2.8) Lipase 87 (23-300) U/L Imaging Data Chest x-ray: Radiologist's Impression: PROCEDURE:? XR CHEST 1V ? INDICATIONS:? chest pain ? TECHNIQUE:? One view of the chest was acquired.? ? COMPARISON:? [facility], , XR CHEST 1V, 10/03/2022, 0:54.? [facility], , XR CHEST 1V, 03/04/2022, 13:38. ? FINDINGS:? ? Surgical changes and devices:? None.? ? Lungs and pleura:? Lungs are clear.? No pleural effusions or pneumothorax.? ? Mediastinum:? Mediastinal contours appear normal.? Heart size is normal.? ? Bones and chest wall:? No suspicious bony lesions.? Overlying soft tissues appear unremarkable.? ? ? IMPRESSION:? Portable chest within normal limits for age. ECG Data Attestation: I personally reviewed and interpreted this ECG as follows: Interpretation: Sinus rhythm Ventricular rate is 77 Normal axis Normal QRS Normal QTC No ST T wave changes MDM Narrative Medical decision making narrative: Patient's blood pressure did improve with hydralazine and Ativan. This is very similar to what happened to her in the past when she was here. She does have a prescription for hydrochlorothiazide which is yet to be sent to her as it was sent to a mail order pharmacy. The plan will be to send her with a prescription for Ativan and also hydralazine. She can take her blood pressure on a daily bas is like we discussed and if the systolic blood pressures greater than 190 than she can take these medications. I reiterated that she should follow-up with her primary doctor and also her lead teller. They were given return precautions. They expressed understanding and agreement. Discharge Plan Departure Patient Disposition: Home Clinical Impression: Hypertension Instructions: DI for High Blood Pressure Activity Restrictions/Additional Instructions: I do recommend that you continue to take all of your medications as directed and keep all of your scheduled medical appointments. I also recommend that you take your blood pressure on a daily basis like we discussed. If the top number ( systolic blood pressure) is greater than 190 then you can take the medications that you were given today as needed. He do not need to take these every day. Return to the emergency department for new or worsening symptoms. Prescriptions: New lorazepam [Ativan] 1 mg tablet 1 mg PO BID PRN (Reason: anxiety) Qty: 14 0RF hydralazine 10 mg tablet 10 mg PO .once PRN (Reason: hypertension) Qty: 20 0RF No Action fluticasone propionate [Flonase Allergy Relief] 50 mcg/actuation spray,suspension 2 spray intranasal DAILY Rx Instructions: administer into each nostril Eliquis 5 mg tablet 5 mg PO BID Qty: 180 3RF carvedilol 25 mg tablet 25 mg PO BID flecainide 50 mg tablet 50 mg PO BID Patient Comments: TAKE ONE TABLET BY MOUTH TWICE DAILY losartan 25 mg tablet 25 mg PO DAILY losartan 100 mg tablet 100 mg PO DAILY Qty: 90 3RF Referrals: Gagan Chiu MD [Primary Care Provider] - Stand Alone Forms: Patient Portal/API
[2022-12-08 13:41] LABS: Add Manual Diff / Slide Review NO; Basophils Absolute Auto 0 /uL (0-100); Basophils Percent Auto 0.3 % (0-2); Eosinophils Absolute Auto 600 /uL (0-450); Eosinophils Percent Auto 8.1 % (2-4); Hematocrit 39.1 % (36-46); Hemoglobin 13.2 g/dL (12.0-16.0); Lymphocytes Absolute Auto 2800 /uL (1100-4500); Lymphocytes Percent Auto 36.4 % (25-40); Mean Corpuscular HGB Conc 33.7 % (30-36); Mean Corpuscular Hemoglobin 30.1 PG (26-34); Mean Corpuscular Volume 89.2 fL (80-100); Monocytes Absolute Auto 600 /uL (0-900); Monocytes Percent Auto 7.3 % (3-14); Neutrophils Absolute Auto 3700 /uL (1500-7000); Neutrophils Percent Auto 47.9 % (50-75); Platelet Count 320 X10^3/uL (150-400); Red Blood Cell Count 4.38 X10^6/uL (4.0-5.2); Red Cell Distribution Width 14.1 % (11.6-14.8); White Blood Cell Count 7.7 X10^3/uL (4.5-11.0)
[2022-12-08 13:50] LABS: INR 1.2 (0.9-1.3)
[2022-12-08 13:53] LABS: PTT Partial Thromboplastin Tim 39 SECONDS (26-36)
[2022-12-08] MEDS: HYDRALAZINE 20 MG/ML VIAL 10 MG IV (13:53)
[2022-12-08 13:58] LABS: Alanine Aminotransferase 28 IU/L (<35); Albumin 4.3 g/dL (3.5-5.0); Albumin Globulin Ratio 1.4 (1.0-2.8); Alkaline Phosphatase 78 U/L (38-126); Aspartate Aminotransferase 24 IU/L (14-36); BUN Creatinine Ratio 16.7 (6-22); Bilirubin Total 0.3 mg/dL (0.2-1.3); Blood Urea Nitrogen 10 mg/dL (7-17); Calcium 9.3 mg/dL (8.4-10.2); Carbon Dioxide 29 mmol/L (22-32); Chloride 97 mmol/L (98-107); Creatine Kinase 52 U/L (30-135); Estimated Glomerular Filt Rate > 60 mL/min (>60); Globulin 3.1 g/dL (1.7-4.1); Glucose 103 mg/dL (80-110); HEMOLYSIS < 15 (0-50); Lipase 87 U/L (23-300); Magnesium 1.9 mg/dL (1.6-2.3); Potassium 3.6 mmol/L (3.4-5.1); Sodium 133 mmol/L (137-145); Total Protein 7.4 g/dL (6.3-8.2)
--- NOTE | 2022-12-08 14:00 | PC.NURSE ---
Patient C/O shortness of breath, lightheaded, chest tightness 3/10. Pt still has the feeling of shortness of breath at rest and lightheaded.
[2022-12-08] MEDS: LORazepam 2 MG/ML INJ 1 MG IV (14:01)
[2022-12-08 14:09] LABS: Troponin I < 0.012 ng/mL (0.01-0.034)
== END 2022-12-08 15:50 | disposition home or self-care (01) ==
PROVIDERS: Emergency Provider Emergency Medicine; Family Provider Internal Medicine; PCP Internal Medicine
DX: I10 Essential (primary) hypertension (principal); R07.9 Chest pain, unspecified
CPT/HCPCS: 36415; 71045; 80053; 82550; 83690; 83735; 84484; 85025; 85610; 85730; 93005; 96374; 96375; 99284; J0360; J2060

== ENCOUNTER 2023-06-17 10:35 | Emergency (ER) | payer MEDICARE, OTHER, SELFPAY ==
[2022-02-08 21:14] VITALS: BMI 26.6
[2023-06-17] VITALS (11 sets, daily range): BP systolic 147–194; BP diastolic 68–97; PULSE 72–90; RESP 13–47; TEMP 36.4; O2SAT 97–100; BMI 28.2
--- NOTE | 2023-06-17 10:55 | DI.RAD.S_ITS ---
PROCEDURE: XR CHEST 1V INDICATIONS: chest pain TECHNIQUE: One view of the chest was acquired. COMPARISON: [facility], CR, XR CHEST 1V, 12/08/2022, 13:40. [facility], CR, XR CHEST 1V, 10/03/2022, 0:54. FINDINGS: Surgical changes and devices: None. Lungs and pleura: Lungs are clear. No pleural effusions or pneumothorax. Mediastinum: Mediastinal contours appear normal. Heart size is normal. Bones and chest wall: No suspicious bony lesions. Overlying soft tissues appear unremarkable. IMPRESSION: No acute cardiopulmonary abnormality is seen. Dictated by: Sean Alcocer M.D. on 06/17/2023 at 11:36 Approved by: Sean Alcocer M.D. on 06/17/2023 at 11:37
--- NOTE | 2023-06-17 11:02 | ED.CHESTPAIN ---
HPI - Chest Pain General Chief Complaint: Arrhythmia/Palpitations Stated Complaint: AFIB Time Seen by Provider: 06/17/23 10:51 History of Present Illness HPI narrative: Patient 72-year-old female history of paroxysmal atrial fibrillation Eliquis and metoprolol and flecainide presenting today with AFib. She reports that she was feeling her normal self last night this morning she felt like she went into AFib she went to the single stayer operator's office for an EKG and was told to come to the ED. she still feels a little dizzy lightheaded she was feeling some flip-flopping and chest discomfort but now it is little bit better. No fever chills or other symptoms. Related Data Home Medications Medication Instructions Recorded Confirmed fluticasone propionate 50 2 spray intranasal DAILY 09/21/21 05/24/22 mcg/actuation nasal spray,suspension (Flonase Allergy Relief) carvedilol 25 mg tablet 25 mg PO BID 03/14/22 05/24/22 flecainide 50 mg tablet 50 mg PO BID 03/14/22 05/24/22 losartan 25 mg tablet 25 mg PO DAILY 03/14/22 05/24/22 Previous Rx's Medication Instructions Recorded apixaban 5 mg tablet (Eliquis) 5 mg PO BID #180 tabs 02/22/22 losartan 100 mg tablet 100 mg PO DAILY #90 tabs 05/24/22 hydralazine 10 mg tablet 10 mg PO .once PRN hypertension 12/08/22 #20 tabs lorazepam 1 mg tablet (Ativan) 1 mg PO BID PRN anxiety #14 tabs 12/08/22 Allergies Allergy/AdvReac Type Severity Reaction Status Date / Time ketorolac Allergy Severe Rash/Severe Verified 12/08/22 13:12 stomach pain NSAIDS (Non-Steroidal Allergy Severe Rash/Severe Verified 12/08/22 13:12 Anti-Inflamma stomach pain tetracycline Allergy Severe Rash Verified 12/08/22 13:12 chlorthalidone AdvReac Intermediate hypokalemia Verified 12/08/22 13:12 diltiazem [From Cardizem] AdvReac Palpitation Verified 12/08/22 13:12 s Patient History Medical History Cataracts, bilateral Paroxysmal atrial fibrillation (~2019) TOLLIVER (nonalcoholic steatohepatitis) Osteoarthritis (~2011) Allergies (~1999) Headache (~2013) Osteopenia (~2014) Disease of spine (~1999) Fracture (~2020) Foot pain (~2013) Chronic back pain (~1999) Carpal tunnel syndrome (~2013) Scarlet fever (~1958) Measles (~1958) Chicken pox (~1957) Recurrent sinusitis (~2012) Erosive gastritis (~2005) Irritable bowel syndrome (~2011) GERD (gastroesophageal reflux disease) (~2005) Thyroid nodule (~1996) Adverse drug effect Hypertension (~1999) Surgical History Anesthesia History of partial hysterectomy (~1997) History of cholecystectomy (~1997) History of lobectomy of thyroid (~1996) History of carpal tunnel surgery (~2014) History of tubal ligation (~1986) History of tonsillectomy (~1970) History of sinus surgery S/P total hip arthroplasty (~2016) Family History Father Kidney disease Mother History of heart disease Alzheimer's disease Brother No problems noted. Grandfather Cancer Grandmother History of heart disease Alzheimer's disease Grandfather Cancer Grandmother Diabetes mellitus History of heart disease Hypertension Family/Other Bronchial pneumonia Social History household members: spouse Smoking Status: Never smoker Smoking Status: Never smoker alcohol intake frequency: 0-2 drinks per day Substance Use Type: does not use Exam Initial Vital Signs Initial Vital Signs: Vital Signs Pulse Rate 90 06/17/23 10:45 Pulse Oximetry 100 06/17/23 10:45 GENERAL: Alert pleasant 72-year-old female and in no acute distress. HEENT: Head atraumatic,EOMI, pupils reactive, face symmetric, moist mucous membranes CARDIOVASCULAR: Regular rate and rhythm without murmurs, rubs or gallops. RESPIRATORY: Breath sounds equal bilaterally, no wheezes rales or rhonchi. ABDOMEN: Soft, nontender. Normoactive bowel sounds all 4 quadrants. No guarding or rebound. EXTREMITIES: Normal range of motion, no clubbing or edema. Neurovascularly intact NEUROLOGICAL: Alert and oriented x4.Normal gait and speech. SKIN: Warm, dry, no laceration, no petechiae, no rashes or lesions. Course Orders Ordered: ED Orders 06/17/23 10:55 XR chest 1V Stat EKG-12 Lead Stat 06/17/23 11:11 Complete Blood Count AUTO DIFF Stat Comprehensive Metabolic Panel Stat Lipase Stat NT-proBNP (BNP-Adult 18+) Stat PTT Partial Thromboplastin Gene Stat Prothrombin Time INR Stat Troponin & CK Cardiac Panel Stat Vital Signs Vital signs: Vital Signs - 8 hr 06/17/23 10:45 06/17/23 10:47 06/17/23 10:47 Temperature Pulse Rate 90 86 Respiratory Rate Blood Pressure 194/97 H Pulse Oximetry 100 100 Oxygen Delivery Method 06/17/23 10:50 06/17/23 10:50 06/17/23 11:00 Temperature Pulse Rate 83 87 Respiratory Rate Blood Pressure 155/68 H Pulse Oximetry 100 100 Oxygen Delivery Method 06/17/23 11:01 06/17/23 11:01 06/17/23 11:07 Temperature 97.6 F Pulse Rate 86 76 Respiratory Rate 19 18 Blood Pressure 186/90 H 186/90 H Pulse Oximetry 100 98 Oxygen Delivery Method Room Air 06/17/23 11:11 06/17/23 11:11 06/17/23 11:20 Temperature Pulse Rate 76 80 Respiratory Rate 14 47 H Blood Pressure 164/84 H Pulse Oximetry 97 99 Oxygen Delivery Method 06/17/23 11:20 06/17/23 11:30 06/17/23 11:30 Temperature Pulse Rate 80 Respiratory Rate 14 Blood Pressure 161/88 H 159/89 H Pulse Oximetry 99 Oxygen Delivery Method 06/17/23 11:40 06/17/23 11:40 06/17/23 11:50 Temperature Pulse Rate 74 72 Respiratory Rate 13 14 Blood Pressure 161/82 H Pulse Oximetry 98 98 Oxygen Delivery Method 06/17/23 11:50 Temperature Pulse Rate Respiratory Rate Blood Pressure 147/80 H Pulse Oximetry Oxygen Delivery Method MDM - Chest Pain Lab Data 06/17/23 11:11 06/17/23 11:11 Labs: Lab Results 06/17/23 Range/Units 11:11 WBC 6.9 (4.5-11.0) X10^3/uL RBC 4.78 (4.0-5.2) X10^6/uL Hgb 14.0 (12.0-16.0) g/dL Hct 43.3 (36-46) % MCV 90.6 (80-100) fL MCH 29.3 (26-34) PG MCHC 32.3 (30-36) % RDW 13.8 (11.6-14.8) % Plt Count 331 (150-400) X10^3/uL Neut % (Auto) 51.1 (50-75) % Lymph % (Auto) 35.3 (25-40) % [place] % (Auto) 7.4 (3-14) % Eos % (Auto) 4.7 H (2-4) % Baso % (Auto) 1.5 (0-2) % Neut # (Auto) 3500 (5849-7428) /uL Lymph # (Auto) 2400 (9760-3461) /uL [place] # (Auto) 500 (0-900) /uL Eos # (Auto) 300 (0-450) /uL Baso # (Auto) 100 (0-100) /uL PT 13.4 H (9.4-12.5) SECONDS INR 1.2 (0.9-1.3) APTT 45 H (25.1-36.5) SECONDS Sodium 138 (137-145) mmol/L Potassium 4.1 (3.4-5.1) mmol/L Chloride 102 (98-107) mmol/L Carbon Dioxide 29 (22-32) mmol/L BUN 12 (7-17) mg/dL Creatinine 0.47 L (0.52-1.04) mg/dL Estimated GFR > 60 (>60) mL/min BUN/Creatinine Ratio 25.5 H (6-22) Glucose 99 (80-110) mg/dL Calcium 9.6 (8.4-10.2) mg/dL Total Bilirubin 0.7 (0.2-1.3) mg/dL AST 31 (14-36) IU/L ALT 31 (<35) IU/L Alkaline Phosphatase 105 (38-126) U/L Total Creatine Kinase 65 (30-135) U/L Troponin I < 0.012 (0.01-0.034) ng/mL NT-Pro-B Natriuret Pep 242 H (<125) pg/mL Total Protein 8.5 H (6.3-8.2) g/dL Albumin 4.7 (3.5-5.0) g/dL Globulin 3.8 (1.7-4.1) g/dL Albumin/Globulin Ratio 1.2 (1.0-2.8) Lipase 70 (23-300) U/L Imaging Data Chest x-ray: Radiologist's Impression: PROCEDURE: XR CHEST 1V INDICATIONS: chest pain TECHNIQUE: One view of the chest was acquired. COMPARISON: [facility], CR, XR CHEST 1V, 12/08/2022, 13:40. [facility], CR, XR CHEST 1V, 10/03/2022, 0:54. FINDINGS: Surgical changes and devices: None. Lungs and pleura: Lungs are clear. No pleural effusions or pneumothorax. Mediastinum: Mediastinal contours appear normal. Heart size is normal. Bones and chest wall: No suspicious bony lesions. Overlying soft tissues appear unremarkable. IMPRESSION: No acute cardiopulmonary abnormality is seen. Dictated by: Sean Alcocer M.D. on 06/17/2023 at 11:36 ECG Data Attestation: I personally reviewed and interpreted this ECG as follows: Interpretation: Sinus rhythm rate 77 W[place] interval 186 QRS 76 QTC 443 no PVC artifact noted MDM Narrative Medical decision making narrative: Patient is 80-year-old female history of paroxysmal atrial fibrillation on Eliquis has previously been cardioverted presents today with chest pain and concern for AFib. She was in AFib at the single stayer operator office however in the ED after IV attempts she is converted herself into a rate controlled sinus rhythm. Blood work has been reviewed WBC 6.9, hemoglobin 14.0, hematocrit 43.3, electrolytes stable creatinine 0.47, glucose 99 troponin negative BNP 242 Chest x-ray reviewed no acute cardiopulmonary process EKG reviewed as above Patient was likely an atrial fibrillation at the doctor's office but remains in sinus rhythm in the ED. Blood work is overall reassuring no active chest pain now. At this time no need for any sort of further interventions or workup Discharge Plan Departure Patient Disposition: Home Clinical Impression: Atrial fibrillation Instructions: DI for Atrial Fibrillation Activity Restrictions/Additional Instructions: *You have been diagnosed with atrial fibrillation *What to do: At this time your in sinus rhythm and has been in sinus rhythm while in the emergency department. Blood work is overall reassuring please continue taking all medications including Eliquis as prescribed *Continue to take medications as directed *Follow up with your primary care provider in 2-3 days or call [phone] *Return to ER if you should have increasing chest pain dizziness lightheadedness or any new, worsening or concerning symptoms Prescriptions: No Action fluticasone propionate [Flonase Allergy Relief] 50 mcg/actuation spray,suspension 2 spray intranasal DAILY Rx Instructions: administer into each nostril Eliquis 5 mg tablet 5 mg PO BID Qty: 180 3RF carvedilol 25 mg tablet 25 mg PO BID flecainide 50 mg tablet 50 mg PO BID Patient Comments: TAKE ONE TABLET BY MOUTH TWICE DAILY losartan 25 mg tablet 25 mg PO DAILY losartan 100 mg tablet 100 mg PO DAILY Qty: 90 3RF lorazepam [Ativan] 1 mg tablet 1 mg PO BID PRN (Reason: anxiety) Qty: 14 0RF hydralazine 10 mg tablet 10 mg PO .once PRN (Reason: hypertension) Qty: 20 0RF Referrals: Cami Graham PA-C [Primary Care Provider] - Stand Alone Forms: Patient Portal/API
[2023-06-17 11:25] LABS: Add Manual Diff / Slide Review NO; Basophils Absolute Auto 100 /uL (0-100); Basophils Percent Auto 1.5 % (0-2); Eosinophils Absolute Auto 300 /uL (0-450); Eosinophils Percent Auto 4.7 % (2-4); Hematocrit 43.3 % (36-46); Lymphocytes Absolute Auto 2400 /uL (1100-4500); Lymphocytes Percent Auto 35.3 % (25-40); Mean Corpuscular HGB Conc 32.3 % (30-36); Mean Corpuscular Hemoglobin 29.3 PG (26-34); Mean Corpuscular Volume 90.6 fL (80-100); Monocytes Absolute Auto 500 /uL (0-900); Monocytes Percent Auto 7.4 % (3-14); Neutrophils Absolute Auto 3500 /uL (1500-7000); Neutrophils Percent Auto 51.1 % (50-75); Platelet Count 331 X10^3/uL (150-400); Red Blood Cell Count 4.78 X10^6/uL (4.0-5.2); Red Cell Distribution Width 13.8 % (11.6-14.8); White Blood Cell Count 6.9 X10^3/uL (4.5-11.0)
[2023-06-17 11:31] LABS: INR 1.2 (0.9-1.3); Prothrombin Time 13.4 SECONDS (9.4-12.5)
[2023-06-17 11:33] LABS: PTT Partial Thromboplastin Tim 45 SECONDS (25.1-36.5)
[2023-06-17 11:39] LABS: Alanine Aminotransferase 31 IU/L (<35); Albumin 4.7 g/dL (3.5-5.0); Albumin Globulin Ratio 1.2 (1.0-2.8); Alkaline Phosphatase 105 U/L (38-126); Aspartate Aminotransferase 31 IU/L (14-36); BUN Creatinine Ratio 25.5 (6-22); Bilirubin Total 0.7 mg/dL (0.2-1.3); Blood Urea Nitrogen 12 mg/dL (7-17); Calcium 9.6 mg/dL (8.4-10.2); Carbon Dioxide 29 mmol/L (22-32); Chloride 102 mmol/L (98-107); Creatine Kinase 65 U/L (30-135); Estimated Glomerular Filt Rate > 60 mL/min (>60); Globulin 3.8 g/dL (1.7-4.1); Glucose 99 mg/dL (80-110); Lipase 70 U/L (23-300); Potassium 4.1 mmol/L (3.4-5.1); Sodium 138 mmol/L (137-145); Total Protein 8.5 g/dL (6.3-8.2)
[2023-06-17 11:42] LABS: HEMOLYSIS 57 (0-50)
[2023-06-17 11:50] LABS: NT-proBNP (BNP-Adult 18+) 242 pg/mL (<125); Troponin I < 0.012 ng/mL (0.01-0.034)
== END 2023-06-17 12:10 | disposition home or self-care (01) ==
PROVIDERS: Emergency Provider Emergency Medicine; Family Provider Internal Medicine; PCP Physician Assistant
DX: I48.91 Unspecified atrial fibrillation (principal); Z79.01 Long term (current) use of anticoagulants
CPT/HCPCS: 36415; 71045; 80053; 82550; 83690; 83880; 84484; 85025; 85610; 85730; 93005; 93010; 99283; 99284

== ENCOUNTER 2023-10-26 00:06 | Emergency (ER) | payer MEDICARE, OTHER, SELFPAY ==
[2022-02-08 21:14] VITALS: BMI 26.6
[2023-10-26] VITALS (13 sets, daily range): BP systolic 120–164; BP diastolic 60–104; PULSE 78–110; RESP 11–29; TEMP 36.8–37.1; O2SAT 91–100; BMI 27.3
--- NOTE | 2023-10-26 00:11 | EKG_ITS ---
[address] [id number] [address] [address] Test Date: 2023-10-26 Pat Name: Olga Colon Department: [facility] Room: Gender: Female [employer]: : [id number] Requested By: Order Number: [id number] Reading MD: Gagan Chiu MD Measurements Intervals [place] Rate: 96 P: [place]: QRS: 28 QRSD: 86 T: 44 QT: 346 QTc: 437 Interpretive Statements Atrial fibrillation Septal infarct , age undetermined Electronically Signed On 10-26-2023 10:12:04 PDT by Gagan Chiu MD
--- NOTE | 2023-10-26 00:11 | DI.RAD.S_ITS ---
PROCEDURE: XR CHEST 1V INDICATIONS: chest pain TECHNIQUE: One view of the chest was acquired. COMPARISON: [facility], CR, XR CHEST 1V, 06/17/2023, 11:01. [facility], CR, XR CHEST 1V, 12/08/2022, 13:40. FINDINGS: Surgical changes and devices: None. Lungs and pleura: Lungs are clear. No pleural effusions or pneumothorax. Mediastinum: Mediastinal contours appear normal. Heart size is normal. Bones and chest wall: No suspicious bony lesions. Overlying soft tissues appear unremarkable. IMPRESSION: No acute cardiopulmonary abnormality is seen. Dictated by: Mitul Pacheco M.D. on 10/26/2023 at 1:21 Approved by: Mitul Pacheco M.D. on 10/26/2023 at 1:22
--- NOTE | 2023-10-26 00:21 | ED_ITS ---
HPI - Chest Pain General Chief Complaint: Chest Pain Stated Complaint: CHEST PAIN, IRR HEART BEAT Time Seen by Provider: 10/26/23 00:11 History of Present Illness HPI narrative: 73-year-old female with history of atrial fibrillation first diagnosed 5 years ago, has been intermittently in atrial fibrillation, not felt to be chronic, taking Eliquis anticoagulation twice daily with no missed doses, 2 years ago was in atrial fibrillation and had unsuccessful electrical cardioversion attempts x3, more recent months had spontaneous resolution of her atrial fibrillation, still taking flecainide antiarrhythmic medication, followed by ANDRES Phillips at [facility], also by automobile sales consultant Dr. Jimenez at [facility]. One hour prior to arrival she had acute onset precordial chest discomfort, and irregular fast heartbeat sensation, typical of her going back into atrial fibrillation. She had no syncope or presyncope symptoms. She had no diaphoresis, no nausea or vomiting, denies abdominal pain. No pain in legs, no swelling in legs. Denies recent illness, fevers, chills, cough, shortness of breath prior days. Denies leg pain or swelling symptoms Related Data Home Medications Medication Instructions Recorded Confirmed fluticasone propionate 50 2 spray intranasal DAILY 09/21/21 05/24/22 mcg/actuation nasal spray,suspension (Flonase Allergy Relief) carvedilol 25 mg tablet 25 mg PO BID 03/14/22 05/24/22 flecainide 50 mg tablet 50 mg PO BID 03/14/22 05/24/22 losartan 25 mg tablet 25 mg PO DAILY 03/14/22 05/24/22 Previous Rx's Medication Instructions Recorded apixaban 5 mg tablet (Eliquis) 5 mg PO BID #180 tabs 02/22/22 losartan 100 mg tablet 100 mg PO DAILY #90 tabs 05/24/22 hydralazine 10 mg tablet 10 mg PO .once PRN hypertension 12/08/22 #20 tabs lorazepam 1 mg tablet (Ativan) 1 mg PO BID PRN anxiety #14 tabs 12/08/22 Allergies Allergy/AdvReac Type Severity Reaction Status Date / Time ketorolac Allergy Severe Rash/Severe Verified 12/08/22 13:12 stomach pain NSAIDS (Non-Steroidal Allergy Severe Rash/Severe Verified 12/08/22 13:12 Anti-Inflamma stomach pain tetracycline Allergy Severe Rash Verified 12/08/22 13:12 chlorthalidone AdvReac Intermediate hypokalemia Verified 12/08/22 13:12 diltiazem [From Cardizem] AdvReac Palpitation Verified 12/08/22 13:12 s Review of Systems Review of Systems Narrative: per HPI Patient History Medical History Cataracts, bilateral Paroxysmal atrial fibrillation (~2018) TOLLIVER (nonalcoholic steatohepatitis) Osteoarthritis (~2011) Allergies (~1999) Headache (~2013) Osteopenia (~2014) Disease of spine (~1999) Fracture (~2020) Foot pain (~2013) Chronic back pain (~1999) Carpal tunnel syndrome (~2013) Scarlet fever (~1958) Measles (~1958) Chicken pox (~1957) Recurrent sinusitis (~2012) Erosive gastritis (~2005) Irritable bowel syndrome (~2011) GERD (gastroesophageal reflux disease) (~2005) Thyroid nodule (~1996) Adverse drug effect Hypertension (~1999) Surgical History Anesthesia History of partial hysterectomy (~1997) History of cholecystectomy (~1997) History of lobectomy of thyroid (~1996) History of carpal tunnel surgery (~2014) History of tubal ligation (~1986) History of tonsillectomy (~1970) History of sinus surgery S/P total hip arthroplasty (~2016) Family History Father Kidney disease Mother History of heart disease Alzheimer's disease Brother No problems noted. Grandfather Cancer Grandmother History of heart disease Alzheimer's disease Grandfather Cancer Grandmother Diabetes mellitus History of heart disease Hypertension Family/Other Bronchial pneumonia Social History household members: spouse Smoking Status: Never smoker Smoking Status: Never smoker alcohol intake frequency: 0-2 drinks per day Substance Use Type: does not use Exam Narrative Exam Narrative: GENERAL: Well-developed patient, in mild distress. HEAD: Atraumatic. Normocephalic. EYES: Pupils equal round and reactive. Extraocular motions intact. No scleral icterus. No injection or drainage. ENT: Nose without bleeding, purulent drainage. Throat without erythema, tonsillar hypertrophy or exudate. Airway patent. NECK: Trachea midline. Non tender CARDIOVASCULAR: Fast rate, irregularly irregular rhythm, without murmurs, gallops, or rubs. RESPIRATORY: Clear to auscultation. Breath sounds equal bilaterally. No wheezes, rales, or rhonchi. GASTROINTESTINAL: Abdomen soft, non-tender, nondistended. EXTREMITIES: No edema or joint tenderness. BACK: Nontender without deformity or crepitance. No flank tenderness. NEURO: AOx3. Grossly nonfocal SKIN: No rash or erythema of visible areas Initial Vital Signs Initial Vital Signs: Vital Signs Temperature 98.7 F 10/26/23 00:10 Pulse Rate 103 H 10/26/23 00:10 Respiratory Rate 14 10/26/23 00:10 Blood Pressure 143/81 H 10/26/23 00:10 Pulse Oximetry 99 10/26/23 00:10 Oxygen Delivery Method Room Air 10/26/23 00:10 Course Orders Ordered: Discontinued Medications Aspirin (Aspirin 81 Mg Chew Tab) 324 mg PO NOW ONE Stop: 10/26/23 00:12 Last Admin: 10/26/23 01:01 Dose: 324 mg Documented By: Al Hydrox/Mg Hydrox/Simethicone 20 ml/ Lidocaine HCl 15 ml 0 ml PO NOW ONE Stop: 10/26/23 01:33 Last Admin: 10/26/23 01:35 Dose: 20 ml Documented By: Sodium Chloride (Normal Saline 0.9%) 1,000 mls @ 150 mls/hr IV CONT PAULINA Last Infusion: 10/26/23 04:50 Dose: Infused Documented By: Admin: 10/26/23 01:02 Dose: 150 mls/hr Documented By: Lorazepam (Lorazepam 2 Mg/Ml Inj) 0.5 mg IV Q2HR PRN PRN Reason: Anxiety Last Admin: 10/26/23 01:49 Dose: 0.5 mg Documented By: Metoprolol Tartrate (Metoprolol Tartrate 5 Mg/5 Ml Inj) 5 mg IV NOW ONE Stop: 10/26/23 00:51 Last Admin: 10/26/23 01:05 Dose: 5 mg Documented By: Metoprolol Tartrate (Metoprolol Tartrate 5 Mg/5 Ml Inj) 5 mg IV NOW ONE Stop: 10/26/23 01:28 Last Admin: 10/26/23 01:29 Dose: 5 mg Documented By: Morphine Sulfate (Morphine 4 Mg/Ml Inj) 4 mg IV NOW ONE Stop: 10/26/23 00:51 Last Admin: 10/26/23 01:05 Dose: 4 mg Documented By: Morphine Sulfate (Morphine 4 Mg/Ml Inj) 4 mg IV NOW ONE Stop: 10/26/23 01:35 Last Admin: 10/26/23 01:41 Dose: 4 mg Documented By: Pantoprazole Sodium (Pantoprazole 40 Mg Vial) 40 mg IV NOW ONE Stop: 10/26/23 01:33 Last Admin: 10/26/23 01:35 Dose: 40 mg Documented By: Vital Signs Vital signs: Vital Signs - 8 hr 10/26/23 00:10 10/26/23 00:22 10/26/23 00:23 Temperature 98.7 F Pulse Rate 103 H 107 H Respiratory Rate 14 12 Blood Pressure 143/81 H 164/78 H Pulse Oximetry 99 100 Oxygen Delivery Method Room Air 10/26/23 00:23 10/26/23 00:30 10/26/23 00:30 Temperature Pulse Rate 105 H 110 H Respiratory Rate 14 19 Blood Pressure 143/81 H Pulse Oximetry 99 100 Oxygen Delivery Method Room Air 10/26/23 01:00 10/26/23 01:00 10/26/23 01:15 Temperature Pulse Rate 105 H Respiratory Rate 12 Blood Pressure 120/81 139/104 H Pulse Oximetry 98 Oxygen Delivery Method Room Air 10/26/23 01:15 10/26/23 01:16 10/26/23 01:16 Temperature Pulse Rate 110 H 97 H Respiratory Rate 11 L 16 Blood Pressure 144/77 H Pulse Oximetry 96 96 Oxygen Delivery Method 10/26/23 01:30 10/26/23 01:30 10/26/23 02:08 Temperature Pulse Rate 97 H 92 H Respiratory Rate 29 H Blood Pressure 149/77 H Pulse Oximetry 98 91 Oxygen Delivery Method 10/26/23 02:10 10/26/23 02:10 Temperature Pulse Rate 84 Respiratory Rate 12 Blood Pressure 125/62 Pulse Oximetry 98 Oxygen Delivery Method Room Air MDM - Chest Pain Lab Data Attestation: I reviewed the patient's lab results. 10/26/23 00:20 10/26/23 01:00 Labs: Lab Results 10/26/23 10/26/23 10/26/23 Range/Units 00:20 01:00 03:05 WBC 9.4 (4.5-11.0) X10^3/uL RBC 4.60 (4.0-5.2) X10^6/uL Hgb 13.7 (12.0-16.0) g/dL Hct 41.1 (36-46) % MCV 89.2 (80-100) fL MCH 29.7 (26-34) PG MCHC 33.3 (30-36) % RDW 14.3 (11.6-14.8) % Plt Count 308 (150-400) X10^3/uL Neut % (Auto) 50.1 (50-75) % Lymph % (Auto) 35.7 (25-40) % [place] % (Auto) 6.0 (3-14) % Eos % (Auto) 6.4 H (2-4) % Baso % (Auto) 1.8 (0-2) % Neut # (Auto) 4700 (2877-1631) /uL Lymph # (Auto) 3400 (1653-6615) /uL [place] # (Auto) 600 (0-900) /uL Eos # (Auto) 600 H (0-450) /uL Baso # (Auto) 200 H (0-100) /uL Sodium 136 L (137-145) mmol/L Potassium 3.7 (3.4-5.1) mmol/L Chloride 103 (98-107) mmol/L Carbon Dioxide 28 (22-32) mmol/L BUN 12 (7-17) mg/dL Creatinine 0.54 (0.52-1.04) mg/dL Estimated GFR > 60 (>60) mL/min BUN/Creatinine Ratio 22.2 H (6-22) Glucose 111 H (80-110) mg/dL Calcium 9.4 (8.4-10.2) mg/dL Total Bilirubin 0.5 (0.2-1.3) mg/dL AST 24 (14-36) IU/L ALT 33 (<35) IU/L Alkaline Phosphatase 103 (38-126) U/L Total Creatine Kinase 74 (30-135) U/L Troponin I < 0.012 < 0.012 (0.01-0.034) ng/mL Total Protein 7.7 (6.3-8.2) g/dL Albumin 4.3 (3.5-5.0) g/dL Globulin 3.4 (1.7-4.1) g/dL Albumin/Globulin Ratio 1.3 (1.0-2.8) Lipase 75 (23-300) U/L ECG Data Attestation: I personally reviewed and interpreted this ECG as follows: Interpretation: 0027 study, Atrial fibrillation with ventricular response rate on EKG of 96, no obvious ST segment elevation or depression changes. QRS 86, QTC 437. 0153 study, atrial fibrillation with ventricular response rate 75, no obvious ST segment elevation or depression changes, no T-wave changes obvious. QRS 78. QTC 435. MDM Narrative Medical decision making narrative: 73-year-old female with history of paroxysmal atrial fibrillation, taking flecainide and Eliquis medications, previously had been on metoprolol, with one hour duration of chest discomfort, no missed doses of Eliquis, screening EKG shows atrial fibrillation with rapid ventricular response 120s 110 range noted on monitor, normotensive. We discussed electrical cardioversion as she would be a candidate, she stated 2 years ago this was unsuccessful x3 shocks attempted, does not want to have shock at this time if stable. Trial of rate control, apparently she can not take diltiazem, taking flecainide, we will give IV metoprolol doses which he has tolerated in the past. Chest x-ray and labs pending. No relief IV morphine, still does not want cardioversion, after IV metoprolol 5mg x2 doses her heart rate decreased 90-100 bpm, still having chest epigastric area pain, no ST segment changes on monitor. Repeat EKG shows atrial fibrillation with rate 75, no obvious ST segment elevation or depression changes, no T-wave changes. More uncomfortable in epigastrium, IV morphine repeat, IV Protonix. Takes Eliquis chronic anticoagulation, PE seems less likely, consider occult hemorrhage, also consider aortic anuerysm/dissection, or other acute process. CT angiogram aortogram chest abdomen and pelvis. On return from angiography patient looks more comfortable, sleeping, no longer seeming that be in obvious distress. Await CT angiogram results. 0240, CT angiogram chest abdomen and pelvis. Impressions: ?No pulmonary embolism, aortic dissection or aneurysm. Nodular appearance of the thyroid gland. Recommend dedicated thyroid ultrasound. Large volume of stool within the colon compatible with constipation. Incidental findings.. See teleradiology report. Patient given print copy of CTA report, informed about thyroid changes and follow-up ecommendations, anatacids advised, consider Miralax OTC for constipation, continue Eliquis, continue Metoprolol for now, and Flecainide, follow with her [place] automobile sales consultant tomorrow Friday10/27/23 advised, call office tomorrow morning, home with , return precautions discussed Critical Care Time Critical Care Time Critical Care Time: Yes Total Critical Care Time: 31 Attestation: The high probability of a clinically significant, sudden or life threatening deterioration of the [cardiopulmonary, abdominopelvic, gastrointestinal] systems required my full and direct attention, intervention and personal management. The aggregate critical care time was [31] minutes. This time is in addition to time spent performing reported procedures but includes the following: [x] Data Review and interpretation [x] Patient assessment and monitoring of vital signs [x] Documentation [x] Medication orders and management Discharge Plan Departure Patient Disposition: Home Clinical Impression: Chest pain, Thyroid nodule, Constipation, Atrial fibrillation Activity Restrictions/Additional Instructions: Chest discomfort in context of recurrent episode atrial fibrillation, history of paroxysmal atrial fibrillation in the past, prior attempted electrical cardioversion was unsuccessful a couple of years ago, you are taking chronic anticoagulation oral medication, we did discuss cardioversion shock electricity tonight, you declined this. Atrial fibrillation was initially in a fast rate response, controlled with IV metoprolol dose. Consider restarting your metoprolol oral medication, of which you have a current supply, this likely should be in place of carvedilol for now, so that you are not taking 2 different formulations of beta-jeevan. Continue taking your blood thinner medications. Regarding your chest/abdominal discomfort, serial blood tests did not show evidence of heart attack at this time. You had persisting pain, despite IV opiate medication and IV antacids, CT angiogram of the chest abdomen and pelvis was therefore performed, no acute changes in the abdomen and pelvis was identified, though there was incidental constipation mentioned, and some thyroid nodularity that should be followed up as an outpatient. Consider [id number] MiraLax for constipation symptoms, if it is related to any of your discomfort today. Restart metoprolol as above, likely in place of carvedilol. Call the office of your automobile sales consultant tomorrow Friday morning to discuss further follow up. Return to this/nearest emergency department for any change worsening symptoms or any concerns prior Per radiology report, regarding your thyroid nodularity incidental finding, they did recommend dedicated ultrasound of the thyroid in follow up, discuss with your primary care provider in follow up. Prescriptions: No Action fluticasone propionate [Flonase Allergy Relief] 50 mcg/actuation spray,suspension 2 spray intranasal DAILY Rx Instructions: administer into each nostril Eliquis 5 mg tablet 5 mg PO BID Qty: 180 3RF carvedilol 25 mg tablet 25 mg PO BID flecainide 50 mg tablet 50 mg PO BID Patient Comments: TAKE ONE TABLET BY MOUTH TWICE DAILY losartan 25 mg tablet 25 mg PO DAILY losartan 100 mg tablet 100 mg PO DAILY Qty: 90 3RF lorazepam [Ativan] 1 mg tablet 1 mg PO BID PRN (Reason: anxiety) Qty: 14 0RF hydralazine 10 mg tablet 10 mg PO .once PRN (Reason: hypertension) Qty: 20 0RF Referrals: Cami Graham PA-C [Primary Care Provider] - Stand Alone Forms: Patient Portal/API
[2023-10-26 00:29] LABS: Add Manual Diff / Slide Review NO; Basophils Absolute Auto 200 /uL (0-100); Basophils Percent Auto 1.8 % (0-2); Eosinophils Absolute Auto 600 /uL (0-450); Eosinophils Percent Auto 6.4 % (2-4); Hematocrit 41.1 % (36-46); Hemoglobin 13.7 g/dL (12.0-16.0); Lymphocytes Absolute Auto 3400 /uL (1100-4500); Lymphocytes Percent Auto 35.7 % (25-40); Mean Corpuscular HGB Conc 33.3 % (30-36); Mean Corpuscular Hemoglobin 29.7 PG (26-34); Mean Corpuscular Volume 89.2 fL (80-100); Monocytes Absolute Auto 600 /uL (0-900); Neutrophils Absolute Auto 4700 /uL (1500-7000); Neutrophils Percent Auto 50.1 % (50-75); Platelet Count 308 X10^3/uL (150-400); Red Cell Distribution Width 14.3 % (11.6-14.8); White Blood Cell Count 9.4 X10^3/uL (4.5-11.0)
[2023-10-26] MEDS: ASPIRIN 81 MG CHEW TAB 324 MG PO (01:01)
[2023-10-26] MEDS: SODIUM CHLORIDE 0.9% 1,000 ML 150 ML IV (01:02)
[2023-10-26] MEDS: MORPHINE 4 MG/ML INJ IV ×2 (01:05→01:41)
[2023-10-26] MEDS: METOPROLOL TARTRATE 5 MG/5 ML INJ IV ×2 (01:05→01:29)
[2023-10-26 01:18] LABS: Alanine Aminotransferase 33 IU/L (<35); Albumin 4.3 g/dL (3.5-5.0); Albumin Globulin Ratio 1.3 (1.0-2.8); Alkaline Phosphatase 103 U/L (38-126); Aspartate Aminotransferase 24 IU/L (14-36); BUN Creatinine Ratio 22.2 (6-22); Bilirubin Total 0.5 mg/dL (0.2-1.3); Blood Urea Nitrogen 12 mg/dL (7-17); Calcium 9.4 mg/dL (8.4-10.2); Carbon Dioxide 28 mmol/L (22-32); Chloride 103 mmol/L (98-107); Creatine Kinase 74 U/L (30-135); Estimated Glomerular Filt Rate > 60 mL/min (>60); Globulin 3.4 g/dL (1.7-4.1); Glucose 111 mg/dL (80-110); HEMOLYSIS < 15 (0-50); Lipase 75 U/L (23-300); Potassium 3.7 mmol/L (3.4-5.1); Sodium 136 mmol/L (137-145); Total Protein 7.7 g/dL (6.3-8.2)
[2023-10-26 01:30] LABS: Troponin I < 0.012 ng/mL (0.01-0.034)
[2023-10-26] MEDS: PANTOPRAZOLE 40 MG VIAL IV (01:35)
[2023-10-26] MEDS: MAG HYDROX/ALUMINUM/SIMETH SUS 20 ML, LIDOCAINE VISCOUS 2% 15 ML PO (01:35)
--- NOTE | 2023-10-26 01:35 | DI.CT.S_ITS ---
PROCEDURE: CT ANGIO CHEST ABDOMEN PELVIS INDICATIONS: chest abd pain, writhing, aortogram TECHNIQUE: Precontrast 5 mm thick sections acquired from the lung apices to the iliac crests. After the administration of intravenous contrast, 2.5 mm thick sections again acquired from the lung apices to the iliac crests. Maximum intensity projection (MIP) oblique sagittal and coronal reformats were then acquired. For radiation dose reduction, the following was used: automated exposure control. COMPARISON: [facility], CT, CT ANGIO CHEST ABDOMEN PELVIS, 03/04/2022, 15:36. FINDINGS: Image quality: Diagnostic. AORTA: No aortic aneurysm. No acute aortic syndrome. Atherosclerotic calcification of the aorta and its branch vessels is shown. CHEST: Lower Neck: No enlarged lymph nodes. Thyroid: Multinodular goiter. Axillae: No enlarged lymph nodes. Chest Wall: Unremarkable. Lungs and Pleura: No pneumothorax or pleural effusions. No consolidation or suspicious nodules. Heart: Heart size is normal. No pericardial effusion. Thoracic Vessels: Pulmonary arteries demonstrate normal size. Mediastinum and Kira: No enlarged lymph nodes. Esophagus: No wall thickening. No hiatal hernia. ABDOMEN: Liver: No solid mass. Gallbladder: Surgically absent. Biliary ducts: No biliary dilation. Pancreas: No ductal dilation. Spleen: Size is within normal limits. Adrenal Glands: No adrenal nodules. Kidneys and Ureters: No hydronephrosis. No solid mass. No complex renal cystic lesion which requires follow up. Stomach and Bowel: Normal colonic caliber, without significant wall thickening. Stool burden is large. Peritoneum: No abnormal intraperitoneal fluid. No free air. Ventral Wall: No hernia. Abdominal Nodes: No retroperitoneal or mesenteric adenopathy by size criteria. Vessels: Inferior vena cava is normal in size. PELVIS: Pelvic Organs: Unremarkable. Bladder: Unremarkable. Pelvic Nodes: No enlarged lymph nodes. Miscellaneous: No inguinal hernias are seen. Bones: Unremarkable. Right hip LORI hardware is grossly intact. IMPRESSION: 1. No acute cardiopulmonary or abdominal process. Specifically, no pulmonary embolism, aortic injury, or evidence of mesenteric ischemia. 2. Multinodular goiter. Thyroid ultrasound is recommended. 3. Large stool burden suggestive of chronic constipation. Dictated by: Symone Wren M.D. on 10/26/2023 at 9:23 Approved by: Symone Wren M.D. on 10/26/2023 at 9:30
[2023-10-26] MEDS: LORazepam 2 MG/ML INJ 0.5 MG IV (01:49)
[2023-10-26 04:04] LABS: Troponin I < 0.012 ng/mL (0.01-0.034)
== END 2023-10-26 04:53 | disposition home or self-care (01) ==
PROVIDERS: Emergency Provider Emergency Medicine; Family Provider Internal Medicine; PCP Physician Assistant
DX: I48.91 Unspecified atrial fibrillation (principal); R07.9 Chest pain, unspecified; E04.1 Nontoxic single thyroid nodule; K59.00 Constipation, unspecified; R10.13 Epigastric pain; Z79.01 Long term (current) use of anticoagulants
CPT/HCPCS: 36415; 71045; 71275; 74174; 80053; 82550; 83690; 84484; 85025; 93005; 96361; 96374; 96375; 96376; 99284; 99291; J2060; J2270; J2470; Q9967

== ENCOUNTER → 2023-11-13 14:39 | Outpatient (CLI) | payer MEDICARE, OTHER, SELFPAY ==
[2022-02-08 21:14] VITALS: BMI 26.6
--- NOTE | 2023-11-13 14:41 | DI.RAD.S_ITS ---
PROCEDURE: XR DEXA AXIAL SKELETON INDICATIONS: ASYMPT POSTMENOPAUSAL COMPARISON: [facility], [facility], XR DEXA AXIAL SKELETON, 07/03/2020, 14:35. FINDINGS: Lumbar Spine: Bone mineral density 1.095 g/cm2, T score 0.4, normal. Left Hip: Bone mineral density is 0.8 g/cm2, T score -1.2, osteopenia. Left Femoral Neck: Bone mineral density 0.673 g/cm2, T score -1.6, osteopenia. Left Forearm: Bone mineral density 0.554 g/cm2, T score -0.5, normal. Fracture Risk Calculation (when applicable): 10-year fracture risk of a major osteoporotic fracture 10 percent and of a hip fracture 1.6 percent. (T score greater or equal to -1.0 to: NORMAL) (T score from -1.1 to -2.4: OSTEOPENIA) (T score less than or equal to -2.5: OSTEOPOROSIS) IMPRESSION: Osteopenia Follow-up guidelines as follows: Osteoporosis: Consider a repeat DEXA and Vertebral Fracture Assessment (VFA) exam in 2 years or sooner if medically necessary, to reassess this patient's status. Osteopenia: Consider a repeat DEXA in 2-3 years to reassess this patient's status, or if there is a new clinical indication. Normal: Consider a repeat DEXA in 5 years or sooner, or if there is a new clinical indication. All treatment decisions require clinical judgment and consideration of individual patient factors, including patient preferences, comorbidities, previous drug use, risk factors not captured in the FRAX model (e.g., frailty, falls, vitamin D deficiency, increased bone turnover, interval significant decline in bone density ) and possible under- or over-estimation of fracture risk by FRAX. In addition, the NOF Guide recommends that FDA-approved medical therapies be considered in postmenopausal women and men age >= 50 years with a: * Hip or vertebral (clinical or morphometric) fracture * T-score of <=-2.5 at the spine or hip * Ten-year fracture probability by FRAX of >= 3% for hip fracture or >=20% for major osteoporotic fracture. People with diagnosed cases of osteoporosis or at high risk for fracture should have regular bone mineral density tests. For patients eligible for Medicare, routine testing is allowed once every 2 years. The testing frequency can be increased to one year for patients who have rapidly progressing disease, those who are receiving or discontinuing medical therapy to restore bone mass, or have additional risk factors. Dictated by: Tree Lam M.D. on 11/13/2023 at 15:25 Approved by: Tree Lam M.D. on 11/13/2023 at 15:28
--- NOTE | 2023-11-13 14:42 | DI.MG.S_ITS ---
BILATERAL DIGITAL SCREENING MAMMOGRAM 3D/2D WITH CAD: 11/13/2023 CLINICAL: Routine screening. Comparison is made to exams dated: 12/27/2021 mammogram, 03/29/2019 mammogram, and 02/25/2018 mammogram - [facility]. There are scattered areas of fibroglandular density in both breasts (category b / 25%-50% glandular tissue). Current study was also evaluated with a Computer Aided Detection (CAD) system. No significant masses, calcifications, or other findings are seen in either breast. There has been no significant interval change. IMPRESSION: NEGATIVE There is no mammographic evidence of malignancy. A 1 year screening mammogram is recommended. Based on the Tyrer Cuzick model (a risk assessment model) the patient's lifetime risk is 3.5% and her 10 year risk is 2.4%. According to the ACR, ACS, and NCCN guidelines, an annual breast MRI exam along with mammogram is recommended if the patient's lifetime risk is 20% or greater. This exam was interpreted at Station ID: [id number]. NOTE: For mammograms, a report in lay terms will be sent to the patient. Approximately 15% of breast malignancies will not be visualized mammographically. In the management of a palpable breast mass, a negative mammogram must not discourage biopsy of a clinically suspicious lesion. Electronically Signed By: Kishor guallpa/lloyd:11/13/2023 16:15:45 letter sent: Normal Exam ACR BI-RADS Category 1: Negative [id number]
--- NOTE | 2023-11-13 14:42 | DI.US.S_ITS ---
PROCEDURE: US THYROID INDICATIONS: MULTI GOITER TECHNIQUE: Real-time scanning was performed of the thyroid gland, with image documentation. COMPARISON: None. FINDINGS: Thyroid: Right lobe measures 4.1 x 1.7 x 2.1 cm. Left lobe measures 7.6 x 3.4 x 2.7 cm. Isthmus is 0.5 cm thick. Echotexture is heterogeneous. Nodule number: 1. Location: Lateral aspect of mid pole right thyroid lobe Size: 1.0 x 0.7 x 0.6 cm. Composition: Predominantly solid Echogenicity: Hypoechoic Shape: Wider than tall Margins: Smooth Echogenic foci: None Total points: 4 ACR TI-RADS category: Moderately suspicious. Nodule number: 2 Location: Mid pole left thyroid lobe Size: 2.8 x 2.7 x 2.5 cm. Composition: Predominantly solid Echogenicity: Hypoechoic Shape: Wider than tall Margins: Smooth Echogenic foci: Punctate Total points: 6 ACR TI-RADS category: Moderately suspicious Nodule number: 3 Location: Left side of isthmus Size: 1.5 x 1.3 x 1.3 cm. Composition: Predominantly cystic Echogenicity: Anechoic Shape: Wider than tall Margins: Ill-defined Echogenic foci: Punctate Total points: 3 ACR TI-RADS category: Mildly suspicious IMPRESSION: 1. Asymmetrically enlarged left thyroid lobe with heterogeneous thyroid parenchymal echotexture. Moderately suspicious midpole left thyroid lobe nodule as described above suggest fine-needle aspiration of this nodule for further workup. ACR TI-RADS definitions and recommendations: TI-RADS 1 (benign): 0 points. FNA not needed. TI-RADS 2 (not suspicious): 2 points. FNA not needed. TI-RADS 3 (mildly suspicious): 3 points. * FNA if 2.5 cm or larger, follow up if 1.5 cm or larger (at 1, 3, and 5 years). TI-RADS 4 (moderately suspicious): 4-6 points. * FNA if 1.5 cm or larger, follow up if 1 cm or larger (at 1, 2, 3, and 5 years). TI-RADS 5 (highly suspicious): 7 points or more. * FNA if 1 cm or larger, follow up if 0.5 cm or larger (every year for 5 years). Dictated by: Leon Yepez M.D. on 11/14/2023 at 10:45 Approved by: Leon Yepez M.D. on 11/14/2023 at 10:49
== END ==
PROVIDERS: Family Provider Internal Medicine; PCP Physician Assistant; Referring Provider Physician Assistant; Visit Provider Physician Assistant
DX: Z12.31 Encounter for screening mammogram for malignant neoplasm of breast (principal); M85.89 Other specified disorders of bone density and structure, multiple sites; E04.2 Nontoxic multinodular goiter; E89.0 Postprocedural hypothyroidism; R92.323 Mammographic fibroglandular density, bilateral breasts; Z78.0 Asymptomatic menopausal state
CPT/HCPCS: 76536; 77063; 77067; 77080; 77081

== ENCOUNTER → 2024-04-22 10:33 | Outpatient (CLI) | payer MEDICARE, OTHER, SELFPAY ==
[2022-02-08 21:14] VITALS: BMI 26.6
--- NOTE | 2024-04-22 10:37 | DI.US.S_ITS ---
PROCEDURE: US THYROID INDICATIONS: PAIN TECHNIQUE: Real-time scanning was performed of the thyroid gland, with image documentation. COMPARISON: [facility], US, US THYROID, 11/13/2023, 15:30. FINDINGS: Thyroid: Right lobe measures 4.7 x 1.8 x 1.7 cm. Left lobe measures 7.9 x 3.1 x 3.0 cm. Isthmus is 0.6 cm thick. Echotexture is heterogeneous. Nodule number: 1 Location: Right lateral mid Size: 1.4 x 0.8 x 0.6 cm compared to 1.0 x 0.7 x 0.6 cm. Composition: Solid Echogenicity: Hypoechoic Shape: wider than tall. Margins: Smooth Echogenic foci: None Total points: 4 ACR TI-RADS category: 4 Nodule number: 2 Location: Left mid Size: 3.2 x 2.7 x 2.8 cm compared to 2.8 x 2.7 x 2.5 cm. Composition: Solid Echogenicity: Hypoechoic Shape: wider than tall. Margins: Smooth Echogenic foci: Punctate Total points: 7 ACR TI-RADS category: 5 Nodule number: 3 Location: Isthmus Size: 1.8 x 1.4 x 1.5 cm compared to 1.5 x 1.3 x 1.3 cm. Composition: Mixed Echogenicity: Hypoechoic Shape: wider than tall. Margins: Smooth Echogenic foci: Punctate Total points: 6 ACR TI-RADS category: 4 IMPRESSION: Interval increase in size of lesion 2. FNA is recommended. Lesion 1 has increased in size, FNA is recommended. Lesion 3 has also increased in size meeting criteria for FNA. ACR TI-RADS definitions and recommendations: TI-RADS 1 (benign): 0 points. FNA not needed. TI-RADS 2 (not suspicious): 2 points. FNA not needed. TI-RADS 3: 3 points. * FNA if 2.5 cm or larger, follow up if 1.5 cm or larger (at 1, 3, and 5 years). TI-RADS 4: 4-6 points. * FNA if 1.5 cm or larger, follow up if 1 cm or larger (at 1, 2, 3, and 5 years). TI-RADS 5: 7 points or more. * FNA if 1 cm or larger, follow up if 0.5 cm or larger (every year for 5 years). Dictated by: Chantal Acosta M.D. on 04/22/2024 at 14:15 Approved by: Chantal Acosta M.D. on 04/22/2024 at 14:18
--- NOTE | 2024-04-22 10:38 | DI.RAD.S_ITS ---
PROCEDURE: XR LUMBAR SPINE 2-3V INDICATIONS: PAIN IN BACK TECHNIQUE: 3 views of the lumbar spine were acquired. COMPARISON: None. FINDINGS: Lumbar spine curvature and alignment: Slight leftward curve appreciated. Bones: There are no osseous abnormalities. Disc spaces: Moderate T12-L1, severe L1-2, moderate L2-3, mild L3-4 L4-5 and L5-S1 degenerative disc disease noted. There is moderate L3-4 through L5-S1 degenerative facet disease. Soft tissues: No soft tissue swelling, calcification or mass. IMPRESSION: Degeneration Dictated by: Gagan Wright M.D. on 04/23/2024 at 11:41 Approved by: Gagan Wright M.D. on 04/23/2024 at 11:42
--- NOTE | 2024-04-22 10:38 | DI.RAD.S_ITS ---
PROCEDURE: XR HIP W PEL IF DONE RT 2V INDICATIONS: right hip pain TECHNIQUE: AP pelvis with lateral view(s) of of the right hip COMPARISON: [facility], CR, [id number] W PEL IF PERFORMED, 01/09/2017, 15:01. FINDINGS: Bones: There are no osseous abnormalities. SI and hip joints: Right total hip prostheses remains in near anatomic alignment without loosening or infection. The left hip and both SI joints are normal. Soft tissues: Multiple calcifications in the right L4-5 paraspinous region right true pelvis are likely benign calcified granulomas. IMPRESSION: Right hip prostheses unremarkable Dictated by: Gagan Wright M.D. on 04/23/2024 at 11:39 Approved by: Gagan Wright M.D. on 04/23/2024 at 11:40
== END ==
LOC: US 10:35
PROVIDERS: Family Provider Internal Medicine; PCP Physician Assistant; Referring Provider Physician Assistant; Visit Provider Physician Assistant
DX: M25.551 Pain in right hip (principal); M51.35 Other intervertebral disc degeneration, thoracolumbar region; E04.2 Nontoxic multinodular goiter; E89.0 Postprocedural hypothyroidism; M51.360 Other intervertebral disc degeneration, lumbar region with discogenic back pain only; M51.370 Other intervertebral disc degeneration, lumbosacral region with discogenic back pain only; M47.816 Spondylosis without myelopathy or radiculopathy, lumbar region; M47.817 Spondylosis without myelopathy or radiculopathy, lumbosacral region; Z96.641 Presence of right artificial hip joint
CPT/HCPCS: 72100; 73502; 76536

== ENCOUNTER → 2024-04-28 12:00 | Outpatient (CLI) | payer MEDICARE, OTHER, SELFPAY ==
[2022-02-08 21:14] VITALS: BMI 26.6
--- NOTE | 2024-04-28 12:03 | DI.CT.S_ITS ---
PROCEDURE: CT ABDOMEN PELVIS W CON INDICATIONS: RLQ ABDOMINAL PAIN TECHNIQUE: After the administration of intravenous contrast, axial sections acquired from the lung bases to the pubic symphysis. Coronal and sagittal reformats were performed. For radiation dose reduction, the following was used: automated exposure control, adjustment of mA and/or kV according to patient size. COMPARISON: None. FINDINGS: Image quality: Diagnostic. Lower Chest: No significant findings. ABDOMEN: Liver: No solid mass. Gallbladder: There has been a cholecystectomy. Biliary ducts: No biliary dilation. Pancreas: The pancreatic duct measures 5.8 millimeters at the pancreatic head. The common bile duct measures 12 millimeters. Spleen: Size is within normal limits. Adrenal Glands: No adrenal nodules. Kidneys and Ureters: No hydronephrosis. No solid mass. No complex renal cystic lesion which requires follow up. Stomach and Bowel: Normal colonic caliber, without significant wall thickening. The appendix is normal. Peritoneum: No abnormal intraperitoneal fluid. No free air. Ventral Wall: No significant ventral hernia. Abdominal Nodes: No retroperitoneal or mesenteric adenopathy by size criteria. Vessels: Aorta and inferior vena cava are normal in size. PELVIS: Pelvic Organs: Unremarkable. Bladder: No bladder wall thickening, accounting for underdistention. Pelvic Nodes: No enlarged lymph nodes. Miscellaneous: No inguinal hernias are seen. Bones: No aggressive osseous abnormality. There is a right hip arthroplasty. IMPRESSION: Normal appendix. Status post cholecystectomy. Mild biliary ductal and pancreatic ductal dilatation. Dictated by: Kelly Felix M.D. on 04/28/2024 at 14:05 Approved by: Kelly Felix M.D. on 04/28/2024 at 14:18
[2024-04-28 12:41] LABS: Estimated Glomerular Filt Rate > 60 mL/min (>60)
== END ==
LOC: CT 12:03
PROVIDERS: Radiology Diagnostic Radiology; Family Provider Internal Medicine; PCP Physician Assistant; Referring Provider Physician Assistant; Visit Provider Physician Assistant
DX: K86.89 Other specified diseases of pancreas (principal); R10.31 Right lower quadrant pain; K83.8 Other specified diseases of biliary tract; M54.9 Dorsalgia, unspecified; G89.29 Other chronic pain; Z90.49 Acquired absence of other specified parts of digestive tract
CPT/HCPCS: 36415; 74177; 82565; Q9967

== ENCOUNTER → 2024-05-07 13:26 | Outpatient (CLI) | payer MEDICARE, OTHER, SELFPAY ==
[2022-02-08 21:14] VITALS: BMI 26.6
--- NOTE | 2024-05-07 | PATH_ITS ---
Note [facility] Accession Number: [id number] TESTS RESULT FLAG UNITS REF RANGE LAB Clinician Provided Cytology Information No. of containers..01 Other (Miscellaneous) No. of containers..02 Previously Prepared Cytology Slide Source: THYROID NODULE # 3 ISTHMUS DIAGNOSIS: THYROID NODULE # 3 ISTHMUS ATYPIA OF UNDETERMINED SIGNIFICANCE. BETHESDA CATEGORY III. ATYPIA OF UNDETERMINED SIGNIFIANCE - NUCLEAR ATYPIA. MOLECULAR STUDIES PENDING; RESULTS WILL BE REPORTED SEPARATELY. Pathologist ICD10: R89.6 Signed out by: Martha Ojeda MD, Pathologist NPI- [id number] Performed by: Harley Hussein, Marketing Analyst ([facility]) Gross description: 30 CC, COLORLESS, CLEAR RECIEVED: IN CYTOLYT WITH 6 ALCOHOL FIXED AND 6 QUICK STAINED SLIDES ALSO 1 RNA VIAL WILL ON 12-04-2024.VO /VDU 05/10/2024 0645 Local FLAG LEGEND: L-Low Normal,H-High Normal,LL-Alert Low,HH-Alert High <-Panic Low,>-Panic High,A-Abnormal,AA-Critical Abnormal Performed at: 01 =[facility] [address], [place] [address] Hermilo Campbell MD, Specimen Comment: [id number] Performed at: 01 [employer] [address], [place], [place] [id number] MD Hermilo Campbell MD Phone: [phone]
--- NOTE | 2024-05-07 | PATH_ITS ---
Note [facility] Accession Number: [id number] TESTS RESULT FLAG UNITS REF RANGE LAB Clinician Provided Cytology Information No. of containers..01 Other (Miscellaneous) No. of containers..02 Previously Prepared Cytology Slide Source: LEFT THYROID NODULE # 2 DIAGNOSIS: LEFT THYROID NODULE # 2 NEGATIVE FOR MALIGNANT CELLS. BETHESDA CATEGORY II. SPECIMEN CONSISTS OF BENIGN FOLLICULAR CELLS (SOME WITH ONCOCYTIC FEATURES), HEMOSIDERIN-LADEN MACROPHAGES, COLLOID, AND BLOOD. THIS PATTERN IS MOST CONSISTENT WITH A BENIGN FOLLICULAR NODULE. Pathologist ICD10: 01 E04.1 Signed out by: Martha Ojeda MD, Pathologist NPI- [id number] Performed by: Teetee Márquez, Dynamo Repairer ([facility]) Gross description: 30 CC, COLORLESS, CLEAR RECIEVED: IN CYTOLYT WITH 6 ALCOHOL FIXED AND 6 QUICK STAINED SLIDES ALSO 1 RNA VIAL WILL ON 12-04-2024.VO /VDU 05/10/2024 0645 Local FLAG LEGEND: L-Low Normal,H-High Normal,LL-Alert Low,HH-Alert High <-Panic Low,>-Panic High,A-Abnormal,AA-Critical Abnormal Performed at: 01 =[facility], [place] [address] Hermilo Campbell MD, Performed at: [address], [place], [place] [id number] MD Hermilo Campbell MD Phone: [phone]
--- NOTE | 2024-05-07 13:28 | DI.US.S_ITS ---
PROCEDURE: US FINE NEEDLE ASPIRATION INDICATIONS: THYROID NODULES TECHNIQUE: The indications, alternatives, benefits, risks, and complications of the procedure were explained to the patient. Written informed consent was obtained and placed in the chart. The thyroid region was examined sonographically and a site was chosen for ultrasound guided percutaneous sampling. The skin was prepared and draped in the usual fashion, and anesthetized with 1% lidocaine infiltrated from the skin down to the thyroid gland. Multiple passes were then performed, with contents emptied into an appropriate pathology specimen container. A bandage was applied to the area of access at completion of the study. COMPARISON: [facility], US, US THYROID, 04/22/2024, 10:59. FINDINGS: Locations of lesions sampled: Left mid #2 thyroid nodule and left isthmus #3 thyroid nodule, as described on ultrasound from 04/22/2024 [place]: 25 gauge hypodermic needles. Number of passes: 6 passes for each nodule Medications: 1% lidocaine for local anaesthesia. Complications: None. IMPRESSION: Successful ultrasound-guided thyroid nodule fine needle aspiration, with cytology results pending. Please see chart below for management recommendations based on cytology results. [facility] ReportingRecommendationsNon-diagnostic* Repeat US-guided FNA, with on-site cytology evaluation if possible. * Repeated non-diagnostic nodules without high suspicion US features: close observation vs surgical consult. * Consider surgery if nodule has high suspicion US features, grows >20% in 2 dimensions on followup, or patient has clinical risk factors for malignancy. Benign* If nodule has high suspicion US features: repeat US and FNA within 12 months. * If nodule has low to intermediate suspicion US features: repeat US at 12-24 months. If nodule grows (20% increase in at least 2 dimensions, with minimal increase of 2 mm or >50% change in volume), or development of new suspicious US features, then repeat FNA or continue followup. * If nodule has very low suspicion US features: followup US at >24 months. Atypia of undetermined significance, follicular lesion of undetermined significanceRepeat FNA, molecular testing, followup US, or surgical consult.Follicular neoplasm, suspicious for follicular neoplasmSurgical consult; also consider molecular testing. Suspicious for malignancySurgical consult.MalignantSurgical consult. Approved by: Seven Castillo M.D. on 05/07/2024 at 16:07
== END ==
PROVIDERS: Family Provider Internal Medicine; PCP Physician Assistant
DX: E04.2 Nontoxic multinodular goiter (principal); E89.0 Postprocedural hypothyroidism; R89.6 Abnormal cytological findings in specimens from other organs, systems and tissues
CPT/HCPCS: 10005

== ENCOUNTER → 2024-11-18 07:49 | Outpatient (CLI) | payer MEDICARE, OTHER, SELFPAY ==
[2022-02-08 21:14] VITALS: BMI 26.6
[2024-11-18 08:51] LABS: Blood Urea Nitrogen 10 mg/dL (7-17); Calcium 9.3 mg/dL (8.4-10.2); Carbon Dioxide 26 mmol/L (22-32); Chloride 96 mmol/L (98-107); Estimated Glomerular Filt Rate > 60 mL/min (>60); Glucose 99 mg/dL (70-99); HEMOLYSIS 17 (0-50); Potassium 4.3 mmol/L (3.4-5.1); Sodium 132 mmol/L (137-145)
== END ==
PROVIDERS: Family Provider Internal Medicine; PCP Physician Assistant; Referring Provider Internal Medicine Nephrology; Visit Provider Internal Medicine Nephrology
DX: E87.1 Hypo-osmolality and hyponatremia (principal)
CPT/HCPCS: 36415; 80048

== ENCOUNTER 2024-11-30 00:57 | Emergency (ER) | payer MEDICARE, OTHER, SELFPAY ==
[2022-02-08 21:14] VITALS: BMI 26.6
[2024-11-30] VITALS (10 sets, daily range): BP systolic 126–184; BP diastolic 60–80; PULSE 82–93; RESP 12–28; TEMP 36.4; O2SAT 96–100; BMI 27.9
--- NOTE | 2024-11-30 01:04 | DI.RAD.S_ITS ---
PROCEDURE: XR CHEST 1V INDICATIONS: Chest Pain TECHNIQUE: One view of the chest was acquired. COMPARISON: [facility], CR, XR CHEST 1V, 10/26/2023, 0:24. FINDINGS: Surgical changes and devices: None. Lungs and pleura: Lungs are clear. No pleural effusions or pneumothorax. Mediastinum: Mediastinal contours appear normal. Heart size is normal. Bones and chest wall: No suspicious bony lesions. Overlying soft tissues appear unremarkable. IMPRESSION: No acute cardiopulmonary pathology. Dictated by: Leon Yepez M.D. on 11/30/2024 at 1:38 Approved by: Leon Yepez M.D. on 11/30/2024 at 1:39
--- NOTE | 2024-11-30 01:10 | EKG_ITS ---
[address] [address] Test Date: 2024-11-30 Pat Name: Olga Colon Department: Room: Gender: Female Veterinary Laboratory Technician: eric lockwood : 1950 Requested By: Order Number: [id number] Reading MD: Gagan Chiu MD Measurements Intervals Opp Rate: 89 P: 61 MS: 182 QRS: 70 QRSD: 100 T: 49 QT: 402 QTc: 489 Interpretive Statements Normal sinus rhythm Electronically Signed On 11-30-2024 6:42:28 PDT by Gagan Chiu MD
--- NOTE | 2024-11-30 01:20 | ED_ITS ---
HPI - Chest Pain General Chief Complaint: Chest Pain Stated Complaint: High Blood Pressure, Chest Pain, Nausea Time Seen by Provider: 11/30/24 01:00 Source: patient and family Mode of arrival: Wheelchair Limitations: no limitations History of Present Illness HPI narrative: 74-year-old female here hypertension, CALIN, goiter, mitral valve regurgitation, paroxysmal atrial fibrillation on Eliquis, and flecainide presents tonight with elevated blood pressure that is been ongoing over the past weekend feeling nauseous and when she got up this evening she felt like she was going to pass out. Patient denies active chest pain, shortness of breath, cough, vomiting, diarrhea, constipation, back pain, urinary complaints. Other than what is stated 14 point review of system is negative. Related Data Home Medications ?Medication ?Instructions ?Recorded ?Confirmed fluticasone propionate 50 2 spray intranasal DAILY 11/0505/24/22 mcg/actuation nasal spray,suspension (Flonase Allergy Relief) carvedilol 25 mg tablet 25 mg PO BID 03/14/22 flecainide 50 mg tablet 50 mg PO BID 03/14/22 losartan 25 mg tablet 25 mg PO DAILY 03/14/2205/15 Previous Rx's ?Medication ?Instructions ?Recorded apixaban 5 mg tablet (Eliquis) 5 mg PO BID #180 tabs 1 04/25/21 losartan 100 mg tablet 100 mg PO DAILY #90 tabs 01/06 hydralazine 10 mg tablet 10 mg PO .once PRN hypertens ion 12/08/22 #20 tabs lorazepam 1 mg tablet (Ativan) 1 mg PO BID PRN anxiety #14 tabs 12/08/22 ondansetron 4 mg disintegrating 4 mg PO Q8H PRN nausea and 11/30/24 tablet vomiting #30 tabs Allergies Allergy/AdvReac Type Severity Reaction Status Date / Time ketorolac Allergy Severe Rash/Severe Verified 11/30/24 01:13 stomach pain NSAIDS (Non-Steroidal Allergy Severe Rash/Severe Verified 11/30/24 01:13 Anti-Inflamma stomach pain tetracycline Allergy Severe Rash Verified 11/30/24 01:13 chlorthalidone AdvReac Intermediate hypokalemia Verified 11/30/24 01:13 diltiazem (From Cardizem) AdvReac Palpitation Verified 11/30/24 01:13 s Review of Systems Review of Systems ROS Unobtainable: All systems reviewed & are unremarkable except as noted in HPI and below Patient History Medical History Cataracts, bilateral Paroxysmal atrial fibrillation (~2018) TOLLIVER (nonalcoholic steatohepatitis) Osteoarthritis (~2011) Allergies (~1999) Headache (~2013) Osteopenia (~2014) Disease of spine (~1999) Fracture (~2020) Foot pain (~2013) Chronic back pain (~1999) Carpal tunnel syndrome (~2013) Scarlet fever (~1958) Measles (~1958) Chicken pox (~1957) Recurrent sinusitis (~2012) Erosive gastritis (~2005) Irritable bowel syndrome (~2011) GERD (gastroesophageal reflux disease) (~2005) Thyroid nodule (~1996) Adverse drug effect Hypertension (~1999) Surgical History Anesthesia History of partial hysterectomy (~1997) History of cholecystectomy (~1997) History of lobectomy of thyroid (~1996) History of carpal tunnel surgery (~2014) History of tubal ligation (~1986) History of tonsillectomy (~1970) History of sinus surgery S/P total hip arthroplasty (~2016) Family History Father Kidney disease Mother History of heart disease Alzheimer's disease Brother No problems noted. Grandfather Cancer Grandmother History of heart disease Alzheimer's disease Grandfather Cancer Grandmother Diabetes mellitus History of heart disease Hypertension Family/Other Bronchial pneumonia Social History household members: spouse Smoking Status: Never smoker Smoking Status: Never smoker alcohol intake frequency: 0-2 drinks per day Exam Narrative Exam Narrative: GENERAL: [74] year old patient appears stated age. Well-developed patient, in mild distress. HEAD: Atraumatic. Normocephalic. EYES: Pupils equal round and reactive. Extraocular motions intact. No scleral icterus. No injection or drainage. ENT: Nose without bleeding, purulent drainage. Throat without erythema, tonsillar hypertrophy or exudate. Airway patent. NECK: Trachea midline. Non tender CARDIOVASCULAR: Regular rate and rhythm without murmurs, gallops, or rubs. RESPIRATORY: Clear to auscultation. Breath sounds equal bilaterally. No wheezes, rales, or rhonchi. GASTROINTESTINAL: Abdomen soft, non-tender, nondistended. EXTREMITIES: No edema or joint tenderness. BACK: Nontender without deformity or crepitance. No flank tenderness. NEURO: AOx3. SKIN: No rash or erythema of visible areas Initial Vital Signs Initial Vital Signs: Vital Signs Pulse Rate 87 11/30/24 01:11 Respiratory Rate 17 11/30/24 01:11 Pulse Oximetry 98 11/30/24 01:11 Scores HEART Score Heart Score history: Slightly Suspicious Heart Score EKG: Normal Heart Score Age: > or = 65 years old Heart Score risk factors: > 3 risk factors or hx of atherosclerotic disease Heart Score troponin: < or = to normal limit Heart Score Total: 4 Course Orders Ordered: ED Orders 11/30/24 01:04 XR chest 1V Stat EKG-12 Lead Stat 11/30/24 01:20 Complete Blood Count AUTO DIFF Stat Comprehensive Metabolic Panel Stat Lipase Stat Magnesium Stat NT-proBNP (BNP-Adult 18+) Stat PTT Partial Thromboplastin Gene Stat Prothrombin Time INR Stat Troponin & CK Cardiac Panel Stat 11/30/24 01:32 CT abdomen pelvis w con Stat 11/30/24 03:20 Troponin I Stat Discontinued Medications Lactated Ringer's (Lactated Ringers) 1,000 mls @ 1,000 mls/hr IV BOLUS ONE Stop: 11/30/24 02:32 Last Infusion: 11/30/24 03:07 Dose: Infused Documented By: Admin: 11/30/24 01:45 Dose: 1,000 mls/hr Documented By: JENNIFER Ondansetron HCl (Ondansetron 4 Mg/2 Ml Inj) 4 mg IV NOW ONE Stop: 11/30/24 01:43 Last Admin: 11/30/24 01:45 Dose: 4 mg Documented By: JENNIFER Vital Signs Vital signs: Vital Signs - 8 hr 11/30/24 01:11 11/30/24 01:13 11/30/24 01:30 Temperature 97.6 F Pulse Rate 87 93 H 88 Respiratory Rate 17 16 28 H Blood Pressure 171/80 H Pulse Oximetry 98 96 100 Oxygen Delivery Method Room Air 11/30/24 01:56 11/30/24 01:56 11/30/24 02:00 Temperature Pulse Rate 89 Respiratory Rate 27 H Blood Pressure 184/78 H 159/71 H Pulse Oximetry 99 Oxygen Delivery Method 11/30/24 02:00 11/30/24 02:30 11/30/24 02:30 Temperature Pulse Rate 86 84 Respiratory Rate 12 26 H Blood Pressure 149/66 H Pulse Oximetry 98 99 Oxygen Delivery Method 11/30/24 03:00 Temperature Pulse Rate 83 Respiratory Rate 12 Blood Pressure Pulse Oximetry 99 Oxygen Delivery Method MDM - Chest Pain Lab Data 11/30/24 01:20 11/30/24 01:20 Labs: Lab Results 11/30/24 Range/Units 01:20 WBC 7.9 (4.5-11.0) X10^3/uL RBC 4.63 (4.0-5.2) X10^6/uL Hgb 13.7 (12.0-16.0) g/dL Hct 40.6 (36-46) % MCV 87.6 (80-100) fL MCH 29.7 (26-34) PG MCHC 33.9 (30-36) % RDW 14.2 (11.6-14.8) % Plt Count 314 (150-400) X10^3/uL Neut % (Auto) 46.3 L (50-75) % Lymph % (Auto) 40.2 H (25-40) % [place] % (Auto) 6.5 (3-14) % Eos % (Auto) 5.6 H (2-4) % Baso % (Auto) 1.4 (0-2) % Neut # (Auto) 3700 (7019-9470) /uL Lymph # (Auto) 3200 (5861-2610) /uL [place] # (Auto) 500 (0-900) /uL Eos # (Auto) 400 (0-450) /uL Baso # (Auto) 100 (0-100) /uL PT 14.3 H (9.4-12.5) SECONDS INR 1.3 (0.9-1.3) APTT 42 H (25.1-36.5) SECONDS Sodium 128 L (137-145) mmol/L Potassium 3.9 (3.4-5.1) mmol/L Chloride 93 L (98-107) mmol/L Carbon Dioxide 27 (22-32) mmol/L BUN 15 (7-17) mg/dL Creatinine 0.63 (0.52-1.04) mg/dL Estimated GFR > 60 (>60) mL/min BUN/Creatinine Ratio 23.8 H (6-22) Glucose 102 H (70-99) mg/dL Calcium 9.8 (8.4-10.2) mg/dL Magnesium 1.7 (1.6-2.3) mg/dL Total Bilirubin 0.6 (0.2-1.3) mg/dL AST 25 (14-36) IU/L ALT 24 (<35) IU/L Alkaline Phosphatase 84 (38-126) U/L Total Creatine Kinase 30 (30-135) U/L Troponin I < 0.012 (0.01-0.034) ng/mL NT-Pro-B Natriuret Pep 36 (<125) pg/mL Total Protein 7.8 (6.3-8.2) g/dL Albumin 4.8 (3.5-5.0) g/dL Globulin 3.0 (1.7-4.1) g/dL Albumin/Globulin Ratio 1.6 (1.0-2.8) Lipase 76 (23-300) U/L Urine Dip Bedside Urine Glucose Negative Bedside Urine Bilirubin - Negative Bedside Urine Ketone - Negative Urine Specific Gepp 1.000 Bedside Urine Occult Blood - Negative Bedside Urine pH 7.5 Bedside Urine Protein - Negative Bedside Urine Urobilinogen - Negative Bedside Urine Nitrite - Negative Bedside Urine Leukocytes - Negative Esterase Imaging Data Chest x-ray: Radiologist's Impression: PROCEDURE: XR CHEST 1V INDICATIONS: Chest Pain TECHNIQUE: One view of the chest was acquired. COMPARISON: [facility], CR, XR CHEST 1V, 10/26/2023, 0:24. FINDINGS: Surgical changes and devices: None. Lungs and pleura: Lungs are clear. No pleural effusions or pneumothorax. Mediastinum: Mediastinal contours appear normal. Heart size is normal. Bones and chest wall: No suspicious bony lesions. Overlying soft tissues appear unremarkable. IMPRESSION: No acute cardiopulmonary pathology. CT scan - abdomen/pelvis: Radiologist's Impression: [address] [address] [address] Scan Report Signed Patient: Olga Colon Dangelo MR#: [id number] : 1950 Acct:[id number] Age/Sex: 74 / F Date of Service: 11/30/24 Loc: ED Accession Number: [id number] Procedure: CT abdomen pelvis w con Ordering Provider: Gagan Shukla D.O. PROCEDURE: CT ABDOMEN PELVIS W CON INDICATIONS: epigastric pain TECHNIQUE: After the administration of intravenous contrast, axial sections acquired from the lung bases to the pubic symphysis. Coronal and sagittal reformats were performed. For radiation dose reduction, the following was used: automated exposure control, adjustment of mA and/or kV according to patient size. COMPARISON: [facility], CT, CT ABDOMEN PELVIS W CON, 04/28/2024, 13:11. FINDINGS: Image quality: Diagnostic. Lower Chest: Bilateral lung bases are clear. Heart size is normal, no pericardial effusion. Small hiatal hernia. ABDOMEN: Liver: No solid mass. Gallbladder: Gallbladder is surgically absent. Biliary ducts: Mild prominence of common bile duct and pancreatic duct unchanged from prior study. Pancreas: No ductal dilation. Spleen: Size is within normal limits. Adrenal Glands: No adrenal nodules. Kidneys and Ureters: No hydronephrosis. No solid mass. No complex renal cystic lesion which requires follow up. Stomach and Bowel: There is no bowel obstruction. No gastric or small bowel wall thickening. [id number] fecal stasis in the colon is seen. No abscess collection. No evidence of acute appendicitis. Peritoneum: No abnormal intraperitoneal fluid. No free air. Ventral Wall: No significant ventral hernia. Abdominal Nodes: No retroperitoneal or mesenteric adenopathy by size criteria. Vessels: Aorta and inferior vena cava are normal in size. PELVIS: Pelvic Organs: Unremarkable. Bladder: No bladder wall thickening, accounting for underdistention. Pelvic Nodes: No enlarged lymph nodes. Miscellaneous: No inguinal hernias are seen. Bones: No aggressive osseous abnormality. Prior right total hip arthroplasty with beam hardening artifacts. No acute vertebral body compression fractures. IMPRESSION: 1. Prior cholecystectomy with chronic mild prominence of common bile duct and pancreatic duct unchanged from prior study. No gross choledocholithiasis. 2. No bowel obstruction or abnormal bowel wall thickening. No evidence of acute appendicitis or diverticulitis. No free fluid or free air. 3. Other chronic findings as above. No significant changes from previous study. ECG Data Interpretation: NSR HR 89 FL 182 QRS [address]-t wave change Change from 10/26/23 [facility] Narrative Medical decision making narrative: All lab work, vital signs, nurse triage note, medication list, previous ER visits, and all imaging studies reviewed. CT abdomen and pelvis showed prior cholecystectomy with chronic mild prominence of common bile duct and pancreatic duct unchanged from prior study. No gross coli do cholelithiasis. No bowel obstruction or abnormal bowel wall thickening. No acute evidence of appendicitis or diverticulitis. No free fluid or free air. Chest x-ray showed no acute process. Normal white count, sodium 128, chloride 93, glucose 102, magnesium 1.7, potassium 3.9, LFTs normal, T bili bonnie at 0.6, troponin normal x2, lipase 76, heart score 4. Differential diagnosis GERD,anxiety, semaglutide side-effect, STEMI, NSTEMI, pancreatitis, small-bowel obstruction, constipation. Discharge Plan Departure Patient Disposition: Home Clinical Impression: Abdominal pain, epigastric, Nausea Instructions: DI for Nausea -- Adult Activity Restrictions/Additional Instructions: Return with new or worsening symptoms. Clear liquid diet advance as tolerated. Take medicine as directed. Follow up PCP in 1-2 weeks if no improvement in symptoms. Prescriptions: New ondansetron 4 mg tablet,disintegrating 4 mg PO Q8H PRN (Reason: nausea and vomiting) Qty: 30 0RF No Action fluticasone propionate [Flonase Allergy Relief] 50 mcg/actuation spray,suspension 2 spray intranasal DAILY Rx Instructions: administer into each nostril Eliquis 5 mg tablet 5 mg PO BID Qty: 180 3RF carvedilol 25 mg tablet 25 mg PO BID flecainide 50 mg tablet 50 mg PO BID Patient Comments: TAKE ONE TABLET BY MOUTH TWICE DAILY losartan 25 mg tablet 25 mg PO DAILY losartan 100 mg tablet 100 mg PO DAILY Qty: 90 3RF lorazepam [Ativan] 1 mg tablet 1 mg PO BID PRN (Reason: anxiety) Qty: 14 0RF hydralazine 10 mg tablet 10 mg PO .once PRN (Reason: hypertension) Qty: 20 0RF Referrals: Cami Graham PA-C [Primary Care Provider, Medical] Stand Alone Forms: Patient Portal/API
[2024-11-30 01:28] LABS: Add Manual Diff / Slide Review NO; Hematocrit 40.6 % (36-46); Hemoglobin 13.7 g/dL (12.0-16.0); Lymphocytes Absolute Auto 3200 /uL (1100-4500); Mean Corpuscular HGB Conc 33.9 % (30-36); Mean Corpuscular Hemoglobin 29.7 PG (26-34); Mean Corpuscular Volume 87.6 fL (80-100); Platelet Count 314 X10^3/uL (150-400)
[2024-11-30 01:31] LABS: INR 1.3 (0.9-1.3); Prothrombin Time 14.3 SECONDS (9.4-12.5)
--- NOTE | 2024-11-30 01:32 | DI.CT.S_ITS ---
PROCEDURE: CT ABDOMEN PELVIS W CON INDICATIONS: epigastric pain TECHNIQUE: After the administration of intravenous contrast, axial sections acquired from the lung bases to the pubic symphysis. Coronal and sagittal reformats were performed. For radiation dose reduction, the following was used: automated exposure control, adjustment of mA and/or kV according to patient size. COMPARISON: [facility], CT, CT ABDOMEN PELVIS W CON, 04/28/2024, 13:11. FINDINGS: Image quality: Diagnostic. Lower Chest: Bilateral lung bases are clear. Heart size is normal, no pericardial effusion. Small hiatal hernia. ABDOMEN: Liver: No solid mass. Gallbladder: Gallbladder is surgically absent. Biliary ducts: Mild prominence of common bile duct and pancreatic duct unchanged from prior study. Pancreas: No ductal dilation. Spleen: Size is within normal limits. Adrenal Glands: No adrenal nodules. Kidneys and Ureters: No hydronephrosis. No solid mass. No complex renal cystic lesion which requires follow up. Stomach and Bowel: There is no bowel obstruction. No gastric or small bowel wall thickening. [id number] fecal stasis in the colon is seen. No abscess collection. No evidence of acute appendicitis. Peritoneum: No abnormal intraperitoneal fluid. No free air. Ventral Wall: No significant ventral hernia. Abdominal Nodes: No retroperitoneal or mesenteric adenopathy by size criteria. Vessels: Aorta and inferior vena cava are normal in size. PELVIS: Pelvic Organs: Unremarkable. Bladder: No bladder wall thickening, accounting for underdistention. Pelvic Nodes: No enlarged lymph nodes. Miscellaneous: No inguinal hernias are seen. Bones: No aggressive osseous abnormality. Prior right total hip arthroplasty with beam hardening artifacts. No acute vertebral body compression fractures. IMPRESSION: 1. Prior cholecystectomy with chronic mild prominence of common bile duct and pancreatic duct unchanged from prior study. No gross choledocholithiasis. 2. No bowel obstruction or abnormal bowel wall thickening. No evidence of acute appendicitis or diverticulitis. No free fluid or free air. 3. Other chronic findings as above. No significant changes from previous study. Dictated by: Leon Yepez M.D. on 11/30/2024 at 1:55 Approved by: Leon Yepez M.D. on 11/30/2024 at 1:57
[2024-11-30 01:33] LABS: PTT Partial Thromboplastin Tim 42 SECONDS (25.1-36.5)
[2024-11-30 01:36] LABS: Alanine Aminotransferase 24 IU/L (<35); Albumin 4.8 g/dL (3.5-5.0); Albumin Globulin Ratio 1.6 (1.0-2.8); Alkaline Phosphatase 84 U/L (38-126); Blood Urea Nitrogen 15 mg/dL (7-17); Calcium 9.8 mg/dL (8.4-10.2); Carbon Dioxide 27 mmol/L (22-32); Chloride 93 mmol/L (98-107); Creatine Kinase 30 U/L (30-135); Estimated Glomerular Filt Rate > 60 mL/min (>60); Globulin 3.0 g/dL (1.7-4.1); Glucose 102 mg/dL (70-99); HEMOLYSIS < 15 (0-50); Lipase 76 U/L (23-300); Magnesium 1.7 mg/dL (1.6-2.3); Potassium 3.9 mmol/L (3.4-5.1); Sodium 128 mmol/L (137-145); Total Protein 7.8 g/dL (6.3-8.2)
[2024-11-30] MEDS: LACTATED RINGERS 1,000 ML 1000 ML IV (01:45)
[2024-11-30] MEDS: ONDANSETRON 4 MG/2 ML INJ IV (01:45)
[2024-11-30 01:47] LABS: NT-proBNP (BNP-Adult 18+) 36 pg/mL (<125); Troponin I < 0.012 ng/mL (0.01-0.034)
--- NOTE | 2024-11-30 02:15 | PC.NURSE ---
Pt reports feeling better after nausea medication administration
[2024-11-30 03:50] LABS: Troponin I < 0.012 ng/mL (0.01-0.034)
[2024-11-30] MEDS: ONDANSETRON 4 MG ODT PREPACK 1 BOTTLE MISC (04:04)
== END 2024-11-30 04:09 | disposition home or self-care (01) ==
PROVIDERS: Emergency Provider Family Medicine; Family Provider Internal Medicine; PCP Physician Assistant
DX: R10.13 Epigastric pain (principal); R07.9 Chest pain, unspecified; R11.0 Nausea; Z79.01 Long term (current) use of anticoagulants
CPT/HCPCS: 36415; 71045; 74177; 80053; 81003; 82550; 83690; 83735; 83880; 84484; 85025; 85610; 85730; 93005; 93010; 96361; 96374; 99284; J2405; Q9967